=== PATIENT | male | born 1930 | race Caucasian/White ===

== ENCOUNTER 2018-04-24 16:50 | Inpatient (IN) | payer MEDICARE, OTHER ==
[2018-04-24 17:37] VITALS: BMI 29.5
[2018-04-24] MEDS ORDERED: Ondansetron HCl/PF 4 MG/2 ML Vial IVP PRN (20:50)
[2018-04-24] MEDS ORDERED: Diabetic Tussin 200 MG/10 ML UDCUP PO PRN (20:50)
[2018-04-24] MEDS ORDERED: Nitroglycerin 0.4 MG TAB (25 Tab Bottle) SL PRN (20:50)
[2018-04-24] MEDS ORDERED: Bisacodyl 5 MG TAB PO PRN (20:50)
[2018-04-24] MEDS ORDERED: Calcium Carbonate 500 MG ChewTAB PO PRN (20:50)
[2018-04-24] MEDS ORDERED: cloNIDine 0.1 MG TAB PO PRN (20:50)
[2018-04-24] MEDS ORDERED: traMADol HCl 50 MG TAB PO PRN ×2 (20:50→21:14)
[2018-04-24] MEDS ORDERED: Loratadine 10 MG TAB PO PRN (20:50)
[2018-04-24] MEDS ORDERED: Acetaminophen 325 MG TAB PO PRN (20:50)
[2018-04-24] MEDS ORDERED: Mag-Al 1200 mg/1200 mg/30 ML UDCUP PO PRN (20:50)
[2018-04-24] MEDS ORDERED: Benzonatate 100 MG CAP PO PRN (20:50)
[2018-04-24] MEDS ORDERED: hydrALAZINE 20 MG/ML VIAL SLOW IVP PRN (20:50)
[2018-04-24] MEDS ORDERED: Senokot 8.6 MG TAB PO PRN (20:50)
[2018-04-24] MEDS ORDERED: Sodium Chloride 0.9% 1,000 ML IV SCH (21:00)
[2018-04-24] MEDS ORDERED: Meclizine HCl 12.5 MG TAB PO PRN (21:14)
[2018-04-24 21:31] LABS: Eosinophils 1 % (0-10); Hemoglobin 11.5 g/dL (14.0-18.0); Lymphocytes 40 % (21-51); MDiff Complete? YES; Macrocytosis SLIGHT = 6-15 cells (100X) (0-5/hpf); Mean Corpuscular HGB CONC 35.5 g/dL (32.0-36.0); Mean Corpuscular Hemoglobin 37.9 pg (27.0-31.0); Mean Platelet Volume 7.8 fL (7.4-10.4); Metamyelocyte 1 % (0-0); Monocytes 15 % (0-10); Neutrophil 43 % (42-75); PLT Morphology Comment Appears Adequate; Platelet Count 150 thou/uL (130-400); RBC Distribution Width 12.2 % (11.5-14.5); Red Blood Cell (RBC) Count 3.04 mill/uL (4.70-6.10)
[2018-04-24 21:36] LABS: ALT (SGPT) 35 U/L (8-55); AST (SGOT) 32 U/L (5-34); Albumin 3.9 g/dL (3.4-4.8); Alkaline Phosphatase 54 U/L (40-150); Anion Gap 13 mmol/L (10-20); BUN (Urea Nitrogen) 25 mg/dL (8.4-25.7); Bilirubin, Total 0.6 mg/dL (0.2-1.2); Calc. Creatinine Clearance 67 mL/min (70-130); Calcium 9.5 mg/dL (7.8-10.44); Carbon Dioxide 24 mmol/L (23-31); Chloride 105 mmol/L (98-107); Estimated GFR-MDRD 71; Globulin 3.1 g/dL (2.4-3.5); Glucose 109 mg/dL (83-110); Potassium 3.9 mmol/L (3.5-5.1); Sodium 138 mmol/L (136-145)
[2018-04-24] MEDS: Simvastatin 5 MG TAB PO SCH (21:51)
[2018-04-24] MEDS: Finasteride 5 MG TAB PO SCH (21:52)
[2018-04-24] MEDS: cefTRIAXone\\ROCEPHIN 2 GM in Sodium Chloride 0.9% 100 ML IVPB SCH (22:54)
[2018-04-24] MEDS ORDERED: Vancomycin HCl 1.25 GM in Sodium Chloride 0.9% 250 ML 250 ML IVPB SCH (23:59)
--- NOTE | 2018-04-25 00:53 | HP ---
DATE OF SERVICE: 04/24/2018 PRIMARY CARE PHYSICIAN: Dr. Wendy Ordoñez. REASON FOR ADMISSION: Direct admission from primary care physician's office for bilateral lower extremity cellulitis and generalized weakness. HISTORY OF PRESENT ILLNESS: An 88-year-old male who was recently admitted at [facility] in [place]. He was admitted there on 2017 and he was discharged from the hospital on 04/21/2018. At that time, patient's admission diagnoses were altered mental status, generalized weakness, volume depletion, and cellulitis of lower extremity. Patient had all routine blood test as well as chest x-ray, which was normal. CT brain also showed atrophy and chronic ischemic white matter changes. Patient was given clindamycin upon discharge. Patient did not feel any better after treatment in hospital as well as upon discharge. He made a followup appointment with primary care physician today. Patient was continued to complain of weakness, he was reporting to his son that he is feeling more weak since he is hospitalized. He had no energy and no strain. He was not able to walk. He was overall feeling very weak. He also reported that both lower extremities getting more red. He was not having any fever. Patient saw primary care physician today and who spoke with Dr. Driver and subsequently Dr. Driver accepted this patient and patient was admitted to the hospital as a direct admission. PAST MEDICAL HISTORY: Colon polyp, diabetes mellitus, hypertension, nephrolithiasis, osteoarthritis, benign enlargement of prostate, dyslipidemia, history of bradycardia-required pacemaker, chronic kidney disease stage 3, physical deconditioning, senile dementia. PAST SURGICAL HISTORY: Pacemaker placement for bradycardia, tonsillectomy, incisional hernia repair, left lung decortication, pericardial window, orchiectomy for testicular abscess. PAST PSYCHIATRIC HISTORY: Reviewed and negative. FAMILY HISTORY: Positive for stroke and heart attack to his mother. His father had COPD and epilepsy. SOCIAL HISTORY: Patient lives at home with his son. He drinks beer occasionally. He denies any smoking. He denies any other illicit drug abuse. ALLERGIES: No known drug allergy. CURRENT HOME MEDICATIONS: Uroxatral 10 mg p.o. daily, Proscar 5 mg daily, Lasix 40 mg p.o. b.i.d., lidocaine patch daily, Toprol-XL 50 mg p.o. daily, potassium chloride 10 mEq p.o. b.i.d., Zocor 10 mg p.o. at bedtime, tramadol 50 mg q.i.d. p.r.n., Antivert 12.5 mg p.o. b.i.d. p.r.n. Hospital course reviewed, old medical record reviewed. REVIEW OF SYSTEMS: Please see my HPI for pertinent positive and negative. All other review of systems reviewed and negative except as mentioned in the HPI: Constitutional: Weight loss or gain, ability to conduct usual activities. Skin : Rash, itching. Eyes: Double vision, pain. ENT/Mouth: Nose bleeding, neck stiffness, pain, tenderness. Cardiovascular: Palpitations, dyspnea on exertion , orthopnea. Respiratory: Shortness of breath, wheezing, cough, hemoptysis, fever, or night sweats. Gastrointestinal: Poor appetite, abdominal pain, heartburn, nausea, vomiting, constipation, or diarrhea. Genitourinary: Urgency , frequency, dysuria, nocturia. Musculoskeletal: Pain, swelling. Neurologic/ Psychiatric: Anxiety, depression. Allergy/Immunologic: Skin rash, bleeding tendency. PHYSICAL EXAMINATION: VITAL SIGNS: On arrival temperature 98.0, pulse 68, respiratory rate 18, saturation 100% on room air, blood pressure 150/57, weight 206 pounds. GENERAL: Patient is currently alert, awake in no obvious acute distress. HEENT: Normocephalic, atraumatic. Eyes: Pupils round, reactive to light. Extraocular muscle intact. ENT: Oropharynx within normal limits. Moist mucous membranes. No oral lesion , no pharyngeal erythema, no exudate. NECK: Supple, no JVD, no thyromegaly, no carotid bruit, no jugular venous distention. LUNGS: Clear to auscultation without any rhonchi or rales. CARDIAC: S1, S2 appears regular without any significant gross murmur. ABDOMEN: Soft, bowel sounds present, nontender, nondistended. No organomegaly , no mass, no suprapubic tenderness. BACK: Unremarkable, no CVA tenderness. EXTREMITIES: Upper extremity passive movement of all joints are normal. Lower extremity: Patient has bilateral lower extremity edema, erythema, tenderness more on the left side. PSYCHIATRIC: Normal affect. NEUROLOGIC: Nonfocal examination. SIGNIFICANT LABORATORY DATA: Recently done blood test at [facility] completely reviewed. His creatinine 0.87, sodium 138, potassium 4.0, chloride 105, calcium 9.1. AST 18, ALT 17, alkaline phosphatase 62. WBC 6.3, hemoglobin 14.0, platelet 224. Today, his CBC: Hemoglobin 11.5, MCV 107, platelet 150. His BMP and LFT is normal. CRP is less than 0.50. ASSESSMENT AND PLAN: 1. Bilateral lower extremity cellulitis most likely patient has chronic lymphedema and possibly this is chronic venous insufficiency and stasis dermatitis. Underlying cellulitis cannot be entirely excluded. We will continue with empiric antibiotic therapy with Rocephin 2 grams q.24 hours and Pharmacy adjusted vancomycin. We will monitor clinical response and will also do ultrasound of bilateral lower extremity to rule out deep venous thrombosis. 2. Generalized weakness. Patient will need PT, OT, and casework specialist consultation as most likely this patient will need a nursing home home placement upon discharge. 3. Benign enlargement of prostate. Continue Proscar 5 mg p.o. daily. 4. Hypertension. Continue Toprol-XL 50 mg p.o. daily. 5. Dyslipidemia. Continue Zocor 10 mg p.o. at bedtime. 6. Macrocytic anemia. Start folic acid and vitamin B12 therapy. 7. Deep venous thrombosis prophylaxis. Lovenox 40 mg subcutaneous daily. 8. Gastrointestinal prophylaxis, Pepcid 20 mg p.o. b.i.d. 9. Code status: Patient is FULL CODE. Patient's son is surrogate decision maker. Disposition plan based on clinical course. We are expecting patient's stay in hospital more than 2 midnights. Patient will need placement upon discharge. During this admission, we will continue with antibiotic therapy and monitor clinical response. RAYMONDD
[2018-04-25] MEDS: Folic Acid 1 MG TAB PO SCH (08:36)
[2018-04-25] MEDS: Alfuzosin 10 MG TABDR...ER PO SCH (08:36)
[2018-04-25] MEDS: Cyanocobalamin (Vitamin B-12) 1,000 MCG TAB PO SCH (08:37)
[2018-04-25] MEDS: Enoxaparin Sodium 40 MG/0.4 ML SYRINGE SC SCH (08:37)
[2018-04-25] MEDS: Furosemide 20 MG TAB PO SCH ×2 (08:37→14:20)
[2018-04-25] MEDS: Potassium Chloride 10 MEQ TAB PO SCH ×2 (08:37→20:17)
--- NOTE | 2018-04-25 09:07 | ULT ---
BILATERAL LOWER EXTREMITY VENOUS DOPPLER WITH SPECTRAL ANALYSIS AND COLOR FLOW EVALUATION: Date: 04-25-18 History: Bilateral lower extremity edema. FINDINGS: Grayscale, color flow, doppler evaluation, and spectral analysis of the bilateral lower extremity valeria ous structures is performed with 2D imaging. The bilateral common femoral, superficial femoral, popli teal, posterior tibial, and proximal greater saphenous and profunda femoral veins are imaged. There is a normal lumen compressibility, flow, and augmentation in the visualized deep venous structu res of the bilateral lower extremities. IMPRESSION: No evidence of DVT involving the visualized deep venous structures bilateral lower extremities. POS: NATHAN
[2018-04-25] MEDS: Famotidine 20 MG TAB PO SCH ×2 (10:28→20:17)
[2018-04-25] MEDS: Vancomycin HCl 1 GM in Premix Bag 1 BAG IVPB SCH ×2 (11:21→23:09)
[2018-04-25] MEDS: Lidocaine 5% Patch TD SCH (11:22)
--- NOTE | 2018-04-25 14:37 | PDOC.PN ---
- Subjective Encounter Start Date: 04/25/18 Encounter Start Time: 14:35 Subjective: feels better. care discussed w son at bedside -: son reports that his legs were more red & warm at home -: reports worsening weakness.reports severe infections in the past - Objective Resuscitation Status: Resuscitation Status FULL:Full Resuscitation MAR Reviewed: Yes Vital Signs & Weight: Vital Signs (12 hours) Temp Pulse Resp BP BP Pulse Ox 04/25/18 12:18 97.6 F 60 18 130/64 96 04/25/18 08:37 97.7 F 60 16 99 04/25/18 07:07 97.7 F 60 16 121/65 99 04/25/18 04:28 97.8 F 67 19 110/55 L 100 Weight Admit Weight 206 lb Weight 206 lb I&O: 04/24/18 04/25/18 04/26/18 06:59 06:59 06:59 Intake Total 665 Output Total 450 Balance 215 Result Diagrams: 04/24/18 21:06 04/24/18 21:06 Additional Labs: Microbiology 04/24/18 22:50 Venous blood - Left Hand Blood Culture - Preliminary Specimen has been received and culture in progress. No Growth to date. Phys Exam - Physical Examination Constitutional: NAD HEENT: PERRLA, moist MMs, sclera anicteric, oral pharynx no lesions Neck: no nodes, no JVD, supple, full ROM Respiratory: no wheezing, no rales, no rhonchi, clear to auscultation bilateral Cardiovascular: RRR, no significant murmur, no rub Gastrointestinal: soft, non-tender, no distention, positive bowel sounds Musculoskeletal: pulses present, edema present Neurological: non-focal, normal sensation, moves all 4 limbs Psychiatric: normal affect, A&O x 3 Skin: no rash Dx/Plan (1) Cellulitis, leg Code(s): L03.119 - CELLULITIS OF UNSPECIFIED PART OF LIMB Status: Acute Comment: Bilateral.Suspect some element of chronic venous insufficiency (2) Anemia Code(s): D64.9 - ANEMIA, UNSPECIFIED Status: Chronic Qualifiers: Anemia type: unspecified type Qualified Code(s): D64.9 - Anemia, unspecified (3) General weakness Code(s): R53.1 - WEAKNESS Status: Chronic (4) BPH (benign prostatic hyperplasia) Code(s): N40.0 - BENIGN PROSTATIC HYPERPLASIA WITHOUT LOWER URINRY TRACT SYMP Status: Chronic (5) HLD (hyperlipidemia) Code(s): E78.5 - HYPERLIPIDEMIA, UNSPECIFIED Status: Chronic - Plan plan discussed w/ family, continue antibiotics, PT/OT, out of bed/ambulate, DVT proph w/SCDs Empiric ABx,follow Cx results -: OT,PT.Placement -: home meds as below -: HD stable -: am labs * . Review of Systems - Review of Systems Constitutional: weakness ENT: negative: Ear Pain, Ear Discharge, Nose Pain, Nose Discharge, Nose Congestion, Mouth Pain, Mouth Swelling, Throat Pain, Throat Swelling, Other Respiratory: negative: Cough, Dry, Shortness of Breath, Hemoptysis, SOB with Excertion, Pleuritic Pain, Sputum, Wheezing Cardiovascular: negative: chest pain, palpitations, orthopnea, paroxysmal nocturnal dyspnea, edema, light headedness, other Gastrointestinal: negative: Nausea, Vomiting, Abdominal Pain, Diarrhea, Constipation, Melena, Hematochezia, Other Genitourinary: negative: Dysuria, Frequency, Incontinence, Hematuria, Retention , Other Musculoskeletal: Leg Pain. negative: Neck Pain, Shoulder Pain, Arm Pain, Back Pain, Hand Pain, Foot Pain, Other Skin: negative: Rash, Lesions, Yk, Bruising, Other Neurological: negative: Weakness, Numbness, Incoordination, Change in Speech, Confusion, Seizures, Other - Medications/Allergies Allergies/Adverse Reactions: Allergies Allergy/AdvReac Type Severity Reaction Status Date / Time No Known Drug Allergies Allergy Verified 04/24/18 17:38 Medications: Current Medications Acetaminophen (Tylenol) 650 mg PO Q4H PRN PRN Reason: Headache/Fever or Mild Pain Al Hydroxide/Mg Hydroxide (Maalox) 15 ml PO Q4H PRN PRN Reason: Heartburn or Indigestion Alfuzosin HCl (Uroxatral) 10 mg PO [facility] Last Admin: 04/25/18 08:36 Dose: 10 mg Benzonatate (Tessalon) 100 mg PO Q4H PRN PRN Reason: Cough Bisacodyl (Dulcolax) 10 mg PO DAILYPRN PRN PRN Reason: Constipation Calcium Carbonate (Tums) 1,000 mg PO Q4H PRN PRN Reason: Heartburn or Indigestion Clonidine (Catapres) 0.1 mg PO Q4H PRN PRN Reason: Systolic BP > 160 Cyanocobalamin (Vitamin B-12) 1,000 mcg PO DAILY [facility] Last Admin: 04/25/18 08:37 Dose: 1,000 mcg Enoxaparin Sodium (Lovenox) 40 mg SC 0900 [facility] Last Admin: 04/25/18 08:37 Dose: 40 mg Famotidine (Pepcid) 20 mg PO BID [facility] Last Admin: 04/25/18 10:28 Dose: 20 mg Finasteride (Proscar) 5 mg PO QPM [facility] Last Admin: 04/24/18 21:52 Dose: 5 mg Folic Acid (Folvite) 1 mg PO DAILY [facility] Last Admin: 04/25/18 08:36 Dose: 1 mg Furosemide (Lasix) 40 mg PO 0900,1400 [facility] Last Admin: 04/25/18 14:20 Dose: 40 mg Guaifenesin (Robitussin Sf) 200 mg PO Q4H PRN PRN Reason: Cough Hydralazine HCl (Apresoline) 10 mg SLOW IVP Q4H PRN PRN Reason: Systolic BP > 170 Ceftriaxone Sodium 2 gm/ (Sodium Chloride) 100 mls @ 200 mls/hr IVPB Q24HR [facility] Last Admin: 04/24/18 22:54 Dose: 100 mls Vancomycin HCl 1 gm/ Device 200 mls @ 200 mls/hr IVPB 1200,2359 [facility] Last Admin: 04/25/18 11:21 Dose: 200 mls Lidocaine (Lidoderm 5% Patch) 2 patch TD DAILY [facility] Last Admin: 04/25/18 11:22 Dose: 2 patch Loratadine (Claritin) 10 mg PO DAILYPRN PRN PRN Reason: Sinus Symptoms Meclizine HCl (Antivert) 12.5 mg PO BIDPRN PRN PRN Reason: Dizziness Metoprolol Succinate (Toprol Xl) 50 mg PO DAILY [facility] Last Admin: 04/25/18 08:37 Dose: 50 mg Miscellaneous Medication (Lidocaine Patch Removal) 1 each TOP 2100 [facility] Miscellaneous Medication (Pharmacy To Dose) 0 each IVPB PRN PRN PRN Reason: [facility] Pharmacy to Dose Nitroglycerin (Nitrostat) 0.4 mg SL Q5MIN PRN PRN Reason: Chest Pain Ondansetron HCl (Zofran) 4 mg IVP Q6H PRN PRN Reason: Nausea/Vomiting Potassium Chloride (Klor-Con 10) 10 meq PO BID [facility] Last Admin: 04/25/18 08:37 Dose: 10 meq Senna (Senokot) 2 tab PO HSPRN PRN PRN Reason: Constipation Simvastatin (Zocor) 10 mg PO QPM [facility] Last Admin: 04/24/18 21:51 Dose: 10 mg Sodium Chloride (Flush - Normal Saline) 10 ml IVF Q12HR [facility] Last Admin: 04/25/18 08:37 Dose: 10 ml Sodium Chloride (Flush - Normal Saline) 10 ml IVF PRN PRN PRN Reason: Saline Flush Tramadol HCl (Ultram) 50 mg PO Q4H PRN PRN Reason: Moderate Pain (4-6)
[2018-04-25] MEDS: Simvastatin 5 MG TAB PO SCH (20:17)
[2018-04-25] MEDS: Finasteride 5 MG TAB PO SCH (20:17)
[2018-04-25] MEDS: Lidocaine Patch Removal 1 EACH TOP SCH (21:01)
[2018-04-25] MEDS: cefTRIAXone\\ROCEPHIN 2 GM in Sodium Chloride 0.9% 100 ML IVPB SCH (22:20)
[2018-04-26 06:02] LABS: Hemoglobin 11.2 g/dL (14.0-18.0)
[2018-04-26] MEDS: Folic Acid 1 MG TAB PO SCH (09:02)
[2018-04-26] MEDS: Alfuzosin 10 MG TABDR...ER PO SCH (09:02)
[2018-04-26] MEDS: Famotidine 20 MG TAB PO SCH ×2 (09:02→20:08)
[2018-04-26] MEDS: Cyanocobalamin (Vitamin B-12) 1,000 MCG TAB PO SCH (09:03)
[2018-04-26] MEDS: Furosemide 20 MG TAB PO SCH ×2 (09:03→14:48)
[2018-04-26] MEDS: Potassium Chloride 10 MEQ TAB PO SCH ×2 (09:03→20:07)
[2018-04-26] MEDS: Lidocaine 5% Patch TD SCH (09:04)
[2018-04-26] MEDS: Enoxaparin Sodium 40 MG/0.4 ML SYRINGE SC SCH (09:04)
[2018-04-26 12:12] LABS: Vancomycin, Trough 17.3 ug/mL
[2018-04-26] MEDS: Vancomycin HCl 1 GM in Premix Bag 1 BAG IVPB SCH ×2 (12:39→23:20)
--- NOTE | 2018-04-26 15:10 | PDOC.PN ---
- Subjective Encounter Start Date: 04/26/18 Encounter Start Time: 15:06 Subjective: feels much better. son reports that his legs ar ebetter looking w swelling -: no F/C - Objective Resuscitation Status: Resuscitation Status FULL:Full Resuscitation MAR Reviewed: Yes Vital Signs & Weight: Vital Signs (12 hours) Temp Pulse Resp BP BP Pulse Ox 04/26/18 11:40 98.1 F 61 14 107/59 L 100 04/26/18 08:58 98.1 F 61 14 98 04/26/18 08:00 98.3 F 64 18 148/66 H 98 04/26/18 04:00 97.7 F 61 14 146/68 H 99 Weight Admit Weight 206 lb Weight 206 lb I&O: 04/25/18 04/26/18 04/27/18 06:59 06:59 06:59 Intake Total 665 1490 1157 Output Total 450 1025 Balance 470 724 2220 Result Diagrams: 04/26/18 05:53 04/24/18 21:06 Additional Labs: Microbiology 04/24/18 22:50 Venous blood - Right Arm Blood Culture - Preliminary Specimen has been received and culture in progress. No Growth to date. 04/24/18 22:50 Venous blood - Left Hand Blood Culture - Preliminary Specimen has been received and culture in progress. No Growth to date. 04/24/18 22:50 Venous blood - Left Hand Blood Culture - Preliminary NO GROWTH AT 48 HOURS Phys Exam - Physical Examination Constitutional: NAD HEENT: PERRLA, moist MMs, sclera anicteric, oral pharynx no lesions Neck: no nodes, no JVD, supple, full ROM Respiratory: no wheezing, no rales, no rhonchi, clear to auscultation bilateral Cardiovascular: RRR, no significant murmur, no rub Gastrointestinal: soft, non-tender, no distention, positive bowel sounds Musculoskeletal: no edema, pulses present Neurological: non-focal, normal sensation, moves all 4 limbs Psychiatric: normal affect, A&O x 3 Dx/Plan (1) Cellulitis, leg Code(s): L03.119 - CELLULITIS OF UNSPECIFIED PART OF LIMB Status: Acute Comment: Bilateral.Suspect some element of chronic venous insufficiency (2) Anemia Code(s): D64.9 - ANEMIA, UNSPECIFIED Status: Chronic Qualifiers: Anemia type: unspecified type Qualified Code(s): D64.9 - Anemia, unspecified (3) General weakness Code(s): R53.1 - WEAKNESS Status: Chronic (4) BPH (benign prostatic hyperplasia) Code(s): N40.0 - BENIGN PROSTATIC HYPERPLASIA WITHOUT LOWER URINRY TRACT SYMP Status: Chronic (5) HLD (hyperlipidemia) Code(s): E78.5 - HYPERLIPIDEMIA, UNSPECIFIED Status: Chronic - Plan continue antibiotics, DVT proph w/SCDs cont iv abx for now. blood cx negative for now. -: Rehab tomorrow if stable. -: home meds as below * . Review of Systems - Review of Systems Constitutional: negative: fever, chills, sweats, weakness, malaise, other ENT: negative: Ear Pain, Ear Discharge, Nose Pain, Nose Discharge, Nose Congestion, Mouth Pain, Mouth Swelling, Throat Pain, Throat Swelling, Other Respiratory: negative: Cough, Dry, Shortness of Breath, Hemoptysis, SOB with Excertion, Pleuritic Pain, Sputum, Wheezing Cardiovascular: edema. negative: chest pain, palpitations, orthopnea, paroxysmal nocturnal dyspnea, light headedness, other Genitourinary: negative: Dysuria, Frequency, Incontinence, Hematuria, Retention , Other Musculoskeletal: Other. negative: Neck Pain, Shoulder Pain, Arm Pain, Back Pain , Hand Pain, Leg Pain, Foot Pain Skin: negative: Rash, Lesions, [place], Bruising, Other Neurological: negative: Weakness, Numbness, Incoordination, Change in Speech, Confusion, Seizures, Other - Medications/Allergies Allergies/Adverse Reactions: Allergies Allergy/AdvReac Type Severity Reaction Status Date / Time No Known Drug Allergies Allergy Verified 04/24/18 17:38 Medications: Current Medications Acetaminophen (Tylenol) 650 mg PO Q4H PRN PRN Reason: Headache/Fever or Mild Pain Al Hydroxide/Mg Hydroxide (Maalox) 15 ml PO Q4H PRN PRN Reason: Heartburn or Indigestion Alfuzosin HCl (Uroxatral) 10 mg PO [facility] Last Admin: 04/26/18 09:02 Dose: 10 mg Benzonatate (Tessalon) 100 mg PO Q4H PRN PRN Reason: Cough Bisacodyl (Dulcolax) 10 mg PO DAILYPRN PRN PRN Reason: Constipation Calcium Carbonate (Tums) 1,000 mg PO Q4H PRN PRN Reason: Heartburn or Indigestion Clonidine (Catapres) 0.1 mg PO Q4H PRN PRN Reason: Systolic BP > 160 Cyanocobalamin (Vitamin B-12) 1,000 mcg PO DAILY [facility] Last Admin: 04/26/18 09:03 Dose: 1,000 mcg Enoxaparin Sodium (Lovenox) 40 mg SC 0900 [facility] Last Admin: 04/26/18 09:04 Dose: 40 mg Famotidine (Pepcid) 20 mg PO BID [facility] Last Admin: 04/26/18 09:02 Dose: 20 mg Finasteride (Proscar) 5 mg PO QPM [facility] Last Admin: 04/25/18 20:17 Dose: 5 mg Folic Acid (Folvite) 1 mg PO DAILY [facility] Last Admin: 04/26/18 09:02 Dose: 1 mg Furosemide (Lasix) 40 mg PO 0900,1400 [facility] Last Admin: 04/26/18 14:48 Dose: 40 mg Guaifenesin (Robitussin Sf) 200 mg PO Q4H PRN PRN Reason: Cough Hydralazine HCl (Apresoline) 10 mg SLOW IVP Q4H PRN PRN Reason: Systolic BP > 170 Ceftriaxone Sodium 2 gm/ (Sodium Chloride) 100 mls @ 200 mls/hr IVPB Q24HR [facility] Last Admin: 04/25/18 22:20 Dose: 100 mls Vancomycin HCl 1 gm/ Device 200 mls @ 200 mls/hr IVPB 1200,2359 [facility] Last Admin: 04/26/18 12:39 Dose: 200 mls Lidocaine (Lidoderm 5% Patch) 2 patch TD DAILY [facility] Last Admin: 04/26/18 09:04 Dose: 2 patch Loratadine (Claritin) 10 mg PO DAILYPRN PRN PRN Reason: Sinus Symptoms Meclizine HCl (Antivert) 12.5 mg PO BIDPRN PRN PRN Reason: Dizziness Metoprolol Succinate (Toprol Xl) 50 mg PO DAILY [facility] Last Admin: 04/26/18 09:03 Dose: 50 mg Miscellaneous Medication (Lidocaine Patch Removal) 1 each TOP 2100 [facility] Last Admin: 04/25/18 21:01 Dose: 1 each Miscellaneous Medication (Pharmacy To Dose) 0 each IVPB PRN PRN PRN Reason: [facility] Pharmacy to Dose Nitroglycerin (Nitrostat) 0.4 mg SL Q5MIN PRN PRN Reason: Chest Pain Ondansetron HCl (Zofran) 4 mg IVP Q6H PRN PRN Reason: Nausea/Vomiting Potassium Chloride (Klor-Con 10) 10 meq PO BID [facility] Last Admin: 04/26/18 09:03 Dose: 10 meq Senna (Senokot) 2 tab PO HSPRN PRN PRN Reason: Constipation Simvastatin (Zocor) 10 mg PO QPM [facility] Last Admin: 04/25/18 20:17 Dose: 10 mg Sodium Chloride (Flush - Normal Saline) 10 ml IVF Q12HR [facility] Last Admin: 04/26/18 09:15 Dose: 10 ml Sodium Chloride (Flush - Normal Saline) 10 ml IVF PRN PRN PRN Reason: Saline Flush Tramadol HCl (Ultram) 50 mg PO Q4H PRN PRN Reason: Moderate Pain (4-6)
[2018-04-26] MEDS: Finasteride 5 MG TAB PO SCH (20:07)
[2018-04-26] MEDS: Simvastatin 5 MG TAB PO SCH (20:07)
[2018-04-26] MEDS: Lidocaine Patch Removal 1 EACH TOP SCH (21:20)
[2018-04-26] MEDS: cefTRIAXone\\ROCEPHIN 2 GM in Sodium Chloride 0.9% 100 ML IVPB SCH (22:37)
[2018-04-27] MEDS: Lidocaine 5% Patch TD SCH (08:31)
[2018-04-27] MEDS: Folic Acid 1 MG TAB PO SCH (08:32)
[2018-04-27] MEDS: Potassium Chloride 10 MEQ TAB PO SCH (08:32)
[2018-04-27] MEDS: Furosemide 20 MG TAB PO SCH ×2 (08:32→12:25)
[2018-04-27] MEDS: Alfuzosin 10 MG TABDR...ER PO SCH (08:32)
[2018-04-27] MEDS: Cyanocobalamin (Vitamin B-12) 1,000 MCG TAB PO SCH (08:32)
[2018-04-27] MEDS: Enoxaparin Sodium 40 MG/0.4 ML SYRINGE SC SCH (08:33)
[2018-04-27] MEDS: Famotidine 20 MG TAB PO SCH (08:33)
[2018-04-27] MEDS ORDERED: Saccharomyces boulardii 250 MG CAP PO SCH (11:30)
[2018-04-27 11:33] VITALS: BP 144/65; TEMP 97.9
[2018-04-27] MEDS: Vancomycin HCl 1 GM in Premix Bag 1 BAG IVPB SCH (12:25)
--- NOTE | 2018-04-27 23:17 | DIS ---
DATE OF ADMISSION: 04/25/2018 DATE OF DISCHARGE: 04/27/2018 PRIMARY CARE PHYSICIAN: Wendy Ordoñez M.D. DISCHARGE DISPOSITION: [facility]. DISCHARGE DIAGNOSES: 1. Bilateral lower extremity cellulitis. 2. Chronic venous insufficiency of the legs. 3. Chronic anemia. 4. Generalized weakness. 5. Benign prostatic hypertrophy. 6. Dyslipidemia. DISCHARGE MEDICATIONS: New medications: Augmentin 875 mg p.o. b.i.d. for 7 more days and resume dakota e medications as per the [facility]. Please see HPI for further details. PROCEDURES DONE IN THE HOSPITAL: Lower extremity ultrasound, which is negative for any DVT bilateral ly. HISTORY OF PRESENTING ILLNESS: Mr. Roldan is an 88-year-old male with past medical history of pacemake r placement for bradycardia, hypertension, dyslipidemia, chronic kidney disease and dementia, who pre sented to the hospital as a direct admit from primary care physician's office for bilateral lower ext remity cellulitis and generalized weakness. He was reportedly admitted to [facility] from 04/20/2018 to 04/21/2018 where he was seen for altered mental status, weakness, volume de pletion and cellulitis of lower extremities. He was discharged on clindamycin, but did not feel bett er and made an appointment with primary care physician. He was found to have more weakness and no en ergy or strength. He was also reporting that his lower extremities are getting more red. For this r jennie, he was sent over as a direct admit by Dr. Wendy Ordoñez. Please see history and physical for further details. HOSPITAL COURSE: The patient was admitted and started on empiric antibiotics IV and cultures were ob tained. Blood cultures are negative until date. The patient had his son and [id number] in the room most of the time. Care was discussed with them and they both reported that his legs have looked much better with less swelling and less erythema after the IV antibiotics. I am not sure what they look like before, but they have significantly improved clinically. I, however, also suspect element of chronic venous insufficiency for him as well. He also follows up with Cardiology and report that Dr. Moore has recently increased his Lasix for worsening lower extremity swelling. By the time of discharge, the patient's clinical symptoms have much improved. He will be changed to oral antibiotics. Rehab was arranged for him as per their request and he will be discharged to [facility] today. He was seen and examined prior to discharge and reports feeling very well. He denies any new complai nts. PHYSICAL EXAMINATION: VITAL SIGNS: This morning, temperature 97.9, pulse of 64, respirations 18, saturating 98% on room ai r, blood pressure 144/65. GENERAL: No acute distress. Awake, alert, and oriented x3. CHEST: Clear to auscultation bilaterally. CARDIOVASCULAR: Rate and rhythm is regular. EXTREMITIES: Lower extremity erythema and warmth are much improved. There is no edema. LABORATORY DATA: Blood culture negative x2 until date. Hemoglobin 11.2 with hematocrit of 32.1. Se rum chemistries unremarkable. CRP normal. Discharge plan was discussed with the patient who verbalized understanding. Discharge plan was also discussed with the son who is present in the room yesterday. They verbalized understanding as well. Total time spent 32 minutes.
== END 2018-04-27 15:23 | DRG 603 ==
LOC: SURG A 16:51
PROVIDERS: ADMIT Internal Medicine; ATTEND Internal Medicine
DX: L03.115 Cellulitis of right lower limb (principal); L03.116 Cellulitis of left lower limb; I87.2 Venous insufficiency (chronic) (peripheral); D64.9 Anemia, unspecified; N40.0 Benign prostatic hyperplasia without lower urinary tract symptoms; E78.5 Hyperlipidemia, unspecified; M19.90 Unspecified osteoarthritis, unspecified site; Z95.0 Presence of cardiac pacemaker; I12.9 Hypertensive chronic kidney disease with stage 1 through stage 4 chronic kidney disease, or unspecified chronic kidney disease; E11.22 Type 2 diabetes mellitus with diabetic chronic kidney disease; N18.3 Chronic kidney disease, stage 3 (moderate); F03.90 Unspecified dementia, unspecified severity, without behavioral disturbance, psychotic disturbance, mood disturbance, and anxiety; Z87.442 Personal history of urinary calculi; R53.1 Weakness
CPT/HCPCS: 36415; 80053; 80202; 85014; 85018; 85025; 86140; 87040; 87324; 87449; 93970; A4216; G8978-GP-CL; G8979-GP-CK; G8987-GO-CK; G8988-GO-CI; J0696; J1650; J3370; J7050

== ENCOUNTER 2018-10-12 06:34 | Inpatient (IN) | payer MEDICARE, OTHER ==
[2018-10-12] MEDS ORDERED: Morphine 4 MG/ML VIAL ONE (07:57)
[2018-10-12 08:13] LABS: INR-International Normal Ratio 1.1; PTT 25.6 SEC (22.9-36.1); Prothrombin Time 14.4 SEC (12.0-14.7)
[2018-10-12 08:26] LABS: Hemoglobin 10.1 g/dL (14.0-18.0); Mean Corpuscular HGB CONC 32.1 g/dL (32.0-36.0); Mean Corpuscular Hemoglobin 36.4 pg (27.0-31.0); Mean Platelet Volume 8.4 fL (7.4-10.4); Platelet Count 233 thou/uL (130-400); Red Blood Cell (RBC) Count 2.77 mill/uL (4.70-6.10); White Blood Cell (WBC) Count 18.1 thou/uL (4.8-10.8)
[2018-10-12 08:30] LABS: ALT (SGPT) 27 U/L (8-55); AST (SGOT) 39 U/L (5-34); Albumin 3.8 g/dL (3.4-4.8); Alkaline Phosphatase 54 U/L (40-150); Anion Gap 18 mmol/L (10-20); BUN (Urea Nitrogen) 22 mg/dL (8.4-25.7); Bilirubin, Total 1.6 mg/dL (0.2-1.2); CK (CPK) 374 U/L (30-200); Calc. Creatinine Clearance 0 mL/min (70-130); Calcium 10.2 mg/dL (7.8-10.44); Carbon Dioxide 19 mmol/L (23-31); Chloride 105 mmol/L (98-107); Estimated GFR-MDRD 54; Globulin 3.7 g/dL (2.4-3.5); Glucose 161 mg/dL (83-110); Potassium 4.5 mmol/L (3.5-5.1); Protein, Total 7.5 g/dL (5.8-8.1); Sodium 137 mmol/L (136-145)
--- NOTE | 2018-10-12 08:36 | ULT ---
ULTRASOUND WITH DOPPLER DUPLEX VENOUS LOWER EXTREMITY LEFT: CPT: 81002 ICD-10-PCS: B54D INDICATION: Left lower extremity edema. TECHNIQUE: Color flow Doppler, spectral waveform analysis of pulsed Doppler, and mcnally-scale imaging with yohan alexis and augmentation, were used to evaluate the left common femoral, femoral, popliteal, posterior t ibial, and superficial femoral, veins; and the proximal portions of the profunda femoral and greater saphenous, veins. FINDINGS: There is appropriate compressibility and flow within the imaged deep vein system of the left lower ex tremity. IMPRESSION: No deep venous thrombosis. POS: TPC
[2018-10-12 08:56] LABS: Bilirubin Negative (Negative); Blood, Urine Large (Negative); Clarity TURBID (Clear); Glucose, Urine (Dipstick) Negative (Negative); Leukocyte Large (Negative); Nitrite Positive (Negative); Protein, Urine (Dipstick) 100 mg/dL (Neg-Trace); Specific Gravity, Urine 1.016 (1.002-1.036); pH, Urine 8.5 (5.0-9.0)
[2018-10-12 08:59] LABS: Bacteria/HPF 3+ HPF (None Seen); RBC/HPF GREATER THAN 50-TNTC HPF (0-3); Squamous Epithelial 0-3 HPF (0-3)
[2018-10-12 09:03] LABS: Pathc Cast-AUWi Flag 43.12 (0-2.49)
[2018-10-12 09:15] LABS: Hyaline Casts/LPF NONE SEEN LPF (0-3 Hyaline)
[2018-10-12 09:22] LABS: MDiff Complete? YES
[2018-10-12 09:23] LABS: Band 27 % (5-11); Lymphocytes 18 % (21-51); Macrocytosis SLIGHT = 6-15 cells (100X) (0-5/hpf); Metamyelocyte 1 % (0-0); Monocytes 7 % (0-10); Neutrophil 47 % (42-75); Platelet Morphology Comment Appears Adequate; Polychromasia SLIGHT = 2-3 cells (100X) (0-2/hpf)
[2018-10-12] MEDS ORDERED: Haloperidol Lactate 5 MG/ML VIAL ONE (09:31)
[2018-10-12] MEDS ORDERED: Morphine 2 MG/ML SYRINGE ONE (09:31)
[2018-10-12] MEDS ORDERED: Piperacillin/Tazobactam 3.375 GM VIAL ONE (10:38)
[2018-10-12] MEDS ORDERED: Acetaminophen 500 MG TAB ONE (11:00)
[2018-10-12 12:08] LABS: Lactic Acid 2.3 mmol/L (0.5-2.2)
--- NOTE | 2018-10-12 12:33 | HP ---
PRIMARY CARE PHYSICIAN: Dr. Dereje Steele. CHIEF COMPLAINT: The patient is becoming more and more confused. HISTORY OF PRESENT ILLNESS: Mr. Roldan is a pleasant 88-year-old gentleman, who has a history of hypertension, benign prostatic hyperplasia, and chronic kidney disease stage 3. He was in his usual state of health until about a couple of weeks ago when he had a left total knee replacement. This was done last Tuesday at the [facility]. His son, who is acting as the historian says that he was fine on Tuesday as well as Tuesday. Then, on , while he was still in the hospital, he started to get confused. They put him in a new room and he continued to get confused and on Tuesday, he was "zoned out" basically kind of just staring blankly and not really talking much. By Tuesday and Tuesday, he was all out, confused according to the son and had to be restrained. Then on Tuesday, he just basically cleared up. Suddenly, he was talking normally where as before he was talking "mush mouth" but now he seemed back to his normal self. For the next few days, he went on normally and was participating with physical therapy and then was transferred to [facility]; however, after being in the [place] for a couple of days, he began to become confused again and this morning, he pulled his Rangel out and was confused and had some hematuria. For this reason, they brought him to the emergency room for evaluation. In the ER, he was found to have a urinary tract infection. His white blood cell count was elevated as well as his lactic acid level and it is presumed that he likely has metabolic encephalopathy and sepsis due to the urinary tract infection. A chest x-ray was done as well as a CT scan of the brain, which were negative and he is being admitted for further evaluation. According to the patient's son, he has had infections in the past, pneumonia and cellulitis in which case the patient got confused at that time and usually it resolves. Prior to him having the knee replacement, he was living at home independently, able to drive and go to the grocery store and to perform all his activities of daily living. He was walking with a walker however, but otherwise he was independent. REVIEW OF SYSTEMS: Unable to get a review of systems due to the patient is confused. PAST MEDICAL HISTORY: Significant for hypertension, kidney stones, osteoarthritis, BPH, hyperlipidemia, chronic kidney disease, and dementia. PAST SURGICAL HISTORY: He has had a pacemaker, tonsillectomy. He has a very large ventral hernia, but it has not been repaired. He has had a pericardial window and the son says this was as a result of him having severe sepsis and caused what sounds like swelling all over his body. He had a testicular abscess removed. ALLERGIES: NO KNOWN DRUG ALLERGIES. FAMILY HISTORY: Significant for COPD and lung cancer. SOCIAL HISTORY: He is , however, his former has . He has one son, Theodore Roldan, and he is the surrogate decision maker. He wants him to be a full code. He used to smoke a pipe or cigar for years, but he quit about 10 years ago, and he occasionally drinks beer. MEDICATIONS: These are taken from this son's list and include; 1. Vitamin B12 1000 mcg daily. 2. Folic acid 1 mg daily. 3. Furosemide 40 mg twice a day. 4. Metoprolol 100 mg daily. 5. Potassium chloride 10 mEq daily. 6. Flomax 0.4 mg daily. 7. Finasteride 5 mg at bedtime. 8. Simvastatin 10 mg at bedtime. 9. Spironolactone 25 mg daily. 10. Vitamin D 50,000 international units weekly. 11. Tramadol 50 mg q.6 hours as needed. PHYSICAL EXAMINATION: GENERAL: He is alert to person. He is well developed and well nourished. He appears to be in no acute distress. VITAL SIGNS: Blood pressure is 166/76, heart rate 84, respiratory rate of 20, and temperature is 97.6. HEENT: His pupils are reactive. His tympanic membranes are normal. There is just a mild amount of redness, but there is no fluid behind the drum. He did have quite a bit of wax in the external canal. Throat, his mucous membranes are bit dry, but there are no oral lesions. NECK: There is no jugular venous distention. No bruits. LUNGS: Clear to auscultation. There is no wheezing, no rales, no rhonchi. CARDIOVASCULAR: He had a normal S1 and S2. No S3 or S4. He did have a grade 3/6 systolic murmur heard throughout the entire precordium. ABDOMEN: Obese. He had a large ventral hernia, which is easily reducible. There was no evidence of any organomegaly. Positive bowel sounds. There is no rebound or guarding. EXTREMITIES: He has no edema; however, the left lower extremity did appear to be slightly larger or sher than the right and the left knee has the incision from the knee replacement, which was dressed, but there is no obvious drainage from the area. NEUROLOGIC: He is moving all extremities and is grossly nonfocal. SKIN AND INTEGUMENT: He has some hyperpigmentation with chronic venous stasis changes. He has some mycotic nails, but otherwise no other significant lesions. LABORATORY DATA: White blood cell count is 18.1, hemoglobin 10.1, hematocrit is 31.5, and platelet count is 233. INR is 1.1. Sodium 137, potassium 4.5, chloride is 105, CO2 is 19, BUN of 22, creatinine 1.26, glucose is 161. His lactic acid was 3.1, total bilirubin is 1.6, and CK was 374. Urinalysis showed large blood, positive nitrites, leukocyte esterase positive, too numerous to count WBCs, and 3+ bacteria. DIAGNOSTIC DATA: His chest x-ray by my reading essentially is normal. Heart size was normal. There is no evidence of any infiltrates or effusions. ASSESSMENT: This is a pleasant 88-year-old gentleman, who presented to the emergency room after having progressive confusion in the longterm and at home. He has had findings consistent with a urinary tract infection and I suspect this is the cause of his symptoms. He also could have a toxic metabolic encephalopathy, but this is less likely as it appears in conversation with the son that they had withdrawn a lot of excessive medications that he had been on with regard to pain medication. He also has some urinary retention, which has likely been exacerbated by his more recent surgery. 1. Urinary tract infection with sepsis. He will be placed on broad-spectrum IV antibiotics. Urine and blood cultures will be obtained and we will tailor antibiotics based on culture results. 2. Urinary retention. We will continue to maintain the Rangel catheter. We can consider a voiding trial when he is close to discharge and if he fails the voiding trial, he already had Urology followup set up from his previous admission and therefore, the Rangel could be replaced and he could follow up as an outpatient. 3. Chronic kidney disease. We will continue to monitor his renal function during his hospital stay. 4. Metabolic encephalopathy. Hopefully, this will clear with the treatment of the infection. Job ID: [id number]
[2018-10-12] MEDS ORDERED: VANCOMYCIN IVPB PRN (12:52)
[2018-10-12] MEDS: Piperacillin/Tazobactam 3.375 GM in Sodium Chloride 0.9% 100 ML IVPB SCH ×2 (17:00→22:48)
[2018-10-12] MEDS: Simvastatin 5 MG TAB PO SCH (20:56)
[2018-10-12] MEDS: Finasteride 5 MG TAB PO SCH (20:56)
[2018-10-12] MEDS: Famotidine 20 MG TAB PO SCH (20:56)
[2018-10-12] MEDS ORDERED: Vancomycin HCl 1 GM in Premix Bag 1 BAG IVPB SCH (21:00)
[2018-10-12] MEDS: Acetaminophen 325 MG TAB PO PRN (23:27)
[2018-10-13] MEDS ORDERED: Ibuprofen 200 MG TAB PO SCH (01:45)
[2018-10-13] MEDS: Piperacillin/Tazobactam 3.375 GM in Sodium Chloride 0.9% 100 ML IVPB SCH ×4 (04:49→23:30)
[2018-10-13] MEDS: Folic Acid 1 MG TAB PO SCH (07:50)
[2018-10-13] MEDS: Tamsulosin HCl 0.4 MG CAP PO SCH (08:08)
[2018-10-13] MEDS: Spironolactone 25 MG TAB PO SCH (08:09)
[2018-10-13] MEDS: Famotidine 20 MG TAB PO SCH ×2 (08:09→19:51)
[2018-10-13] MEDS: Enoxaparin Sodium 40 MG/0.4 ML SYRINGE SC SCH (08:09)
[2018-10-13 08:20] LABS: Hemoglobin 7.9 g/dL (14.0-18.0); Mean Corpuscular HGB CONC 32.4 g/dL (32.0-36.0); Mean Corpuscular Hemoglobin 36.7 pg (27.0-31.0); Mean Platelet Volume 8.4 fL (7.4-10.4); Platelet Count 171 thou/uL (130-400); Red Blood Cell (RBC) Count 2.16 mill/uL (4.70-6.10)
[2018-10-13 08:21] LABS: Lactic Acid 0.9 mmol/L (0.5-2.2)
[2018-10-13 08:31] LABS: Anion Gap 12 mmol/L (10-20); BUN (Urea Nitrogen) 22 mg/dL (8.4-25.7); Calc. Creatinine Clearance 0 mL/min (70-130); Calcium 8.5 mg/dL (7.8-10.44); Carbon Dioxide 20 mmol/L (23-31); Chloride 111 mmol/L (98-107); Estimated GFR-MDRD 56; Glucose 105 mg/dL (83-110); Potassium 3.7 mmol/L (3.5-5.1); Sodium 139 mmol/L (136-145)
[2018-10-13 09:07] LABS: Band 22 % (5-11); Lymphocytes 6 % (21-51); MDiff Complete? YES; Macrocytosis SLIGHT = 6-15 cells (100X) (0-5/hpf); Metamyelocyte 2 % (0-0); Monocytes 6 % (0-10); Myelocyte 2 % (0-0); Neutrophil 59 % (42-75); Platelet Morphology Comment Appears Adequate; Reactive Lymphocytes 3 % (0-10)
[2018-10-13] MEDS ORDERED: Vancomycin HCl 1.25 GM in Sodium Chloride 0.9% 250 ML 250 ML IVPB SCH (12:00)
[2018-10-13 12:42] VITALS: BMI 28.7
[2018-10-13] MEDS ORDERED: Sodium Chloride 0.9% 500 ML IV SCH (12:45)
--- NOTE | 2018-10-13 13:54 | PDOC.PN ---
- Subjective Encounter Start Date: 10/13/18 Encounter Start Time: 12:30 Mr. Roldan was seen today in follow-up of UTI with sepsis. He is clinically much improved. He is talking more, and is more oriented. His speech is clear. - Objective Resuscitation Status - Order Detail: 10/12/18 11:47 Resuscitation Status Routine Resuscitation Status: FULL: Full Resuscitation MAR Reviewed: Yes Vital Signs & Weight: Vital Signs (12 hours) Temp Pulse Resp BP Pulse Ox 10/13/18 11:00 98 F 74 18 112/60 100 10/13/18 07:52 97.6 F 62 18 91/49 L 100 10/13/18 07:36 100 10/13/18 04:09 99.0 F 85 24 H 130/54 L 100 Weight Weight 200 lb I&O: 10/12/18 10/13/18 10/14/18 06:59 06:59 06:59 Intake Total 2710 800 Output Total 900 Balance 1810 800 Result Diagrams: 10/13/18 07:44 10/13/18 07:44 Phys Exam - Physical Examination HEENT: PERRLA Respiratory: no wheezing, no rales, no rhonchi, clear to auscultation bilateral Cardiovascular: RRR, no significant murmur, no rub Gastrointestinal: soft, non-tender, positive bowel sounds Musculoskeletal: pulses present, edema present Dx/Plan (1) UTI (urinary tract infection) Status: Acute (2) Sepsis Code(s): A41.9 - SEPSIS, UNSPECIFIED ORGANISM Status: Acute (3) Acute metabolic encephalopathy Code(s): G93.41 - METABOLIC ENCEPHALOPATHY Status: Acute (4) Hypertension Code(s): I10 - ESSENTIAL (PRIMARY) HYPERTENSION Status: Chronic (5) BPH (benign prostatic hyperplasia) Code(s): N40.0 - BENIGN PROSTATIC HYPERPLASIA WITHOUT LOWER URINRY TRACT SYMP Status: Chronic (6) Status post total left knee replacement Code(s): Z96.652 - PRESENCE OF LEFT ARTIFICIAL KNEE JOINT Status: Chronic (7) Macrocytic anemia Code(s): D53.9 - NUTRITIONAL ANEMIA, UNSPECIFIED Status: Acute - Plan * UTI with sepsis and metabolic encephalopathy- he is clinically improved- will continue Zosyn. His urine culture is positive for a gram negative david, and Citrobacter is growing from one of his blood cultures. Will therefore discontinue Vancomycin * HTN- blood pressure is stable * BPH with urinary retention- will continue the Rangel Catheter. consider voiding trial prior to discharge. * Macrocystic anemia- his blood count dropped overnight, possibly due tot hydration- unsure if this has been working up in the past- will check a B-12 and Folic acid level and transfuse if necessary * Post recent knee replacement - continue PT/OT
[2018-10-13 17:33] LABS: Folate (Folic Acid) 17.1 ng/mL (7.0-31.4)
[2018-10-13] MEDS: Acetaminophen 325 MG TAB PO PRN (19:51)
[2018-10-13] MEDS: Finasteride 5 MG TAB PO SCH (19:51)
[2018-10-13] MEDS: Simvastatin 5 MG TAB PO SCH (19:51)
[2018-10-14] MEDS: Piperacillin/Tazobactam 3.375 GM in Sodium Chloride 0.9% 100 ML IVPB SCH ×4 (05:02→22:44)
[2018-10-14] MEDS: Folic Acid 1 MG TAB PO SCH (08:01)
[2018-10-14] MEDS: Famotidine 20 MG TAB PO SCH ×2 (08:01→20:14)
[2018-10-14] MEDS: Tamsulosin HCl 0.4 MG CAP PO SCH (08:01)
[2018-10-14] MEDS: Spironolactone 25 MG TAB PO SCH (08:01)
[2018-10-14] MEDS: Enoxaparin Sodium 40 MG/0.4 ML SYRINGE SC SCH (08:01)
[2018-10-14 08:07] LABS: Band 16 % (5-11); Eosinophils 1 % (0-10); Hemoglobin 7.9 g/dL (14.0-18.0); Lymphocytes 25 % (21-51); MDiff Complete? YES; Mean Corpuscular HGB CONC 32.9 g/dL (32.0-36.0); Mean Corpuscular Hemoglobin 37.9 pg (27.0-31.0); Mean Platelet Volume 8.5 fL (7.4-10.4); Metamyelocyte 8 % (0-0); Monocytes 10 % (0-10); Myelocyte 1 % (0-0); Neutrophil 39 % (42-75); Platelet Count 154 thou/uL (130-400); RBC Distribution Width 13.2 % (11.5-14.5); Red Blood Cell (RBC) Count 2.09 mill/uL (4.70-6.10); White Blood Cell (WBC) Count 6.6 thou/uL (4.8-10.8)
[2018-10-14] MEDS: traMADol HCl 50 MG TAB PO PRN ×2 (13:57→20:18)
--- NOTE | 2018-10-14 15:49 | PDOC.PN ---
- Subjective Encounter Start Date: 10/14/18 Encounter Start Time: 12:45 Mr. Roldan was seen today in follow-up of UTI with sepsis. He is clinically improved. His confusion continues to clear. - Objective Resuscitation Status - Order Detail: 10/12/18 11:47 Resuscitation Status Routine Resuscitation Status: FULL: Full Resuscitation MAR Reviewed: Yes Vital Signs & Weight: Vital Signs (12 hours) Temp Pulse Resp BP BP Pulse Ox 10/14/18 07:54 98.3 F 69 20 125/62 97 10/14/18 04:00 98.2 F 63 20 118/51 L 94 L Weight Weight 200 lb I&O: 10/13/18 10/14/18 10/15/18 06:59 06:59 06:59 Intake Total 2710 2470 Output Total 900 300 Balance 1810 2170 Result Diagrams: 10/14/18 06:00 10/13/18 07:44 Phys Exam - Physical Examination HEENT: PERRLA Respiratory: no wheezing, no rales, no rhonchi, clear to auscultation bilateral Cardiovascular: RRR, no significant murmur, no rub Gastrointestinal: soft, non-tender, no distention, positive bowel sounds Musculoskeletal: no edema, pulses present Dx/Plan (1) UTI (urinary tract infection) Status: Acute (2) Sepsis Code(s): A41.9 - SEPSIS, UNSPECIFIED ORGANISM Status: Acute (3) Acute metabolic encephalopathy Code(s): G93.41 - METABOLIC ENCEPHALOPATHY Status: Acute (4) Hypertension Code(s): I10 - ESSENTIAL (PRIMARY) HYPERTENSION Status: Chronic (5) BPH (benign prostatic hyperplasia) Code(s): N40.0 - BENIGN PROSTATIC HYPERPLASIA WITHOUT LOWER URINRY TRACT SYMP Status: Chronic (6) Status post total left knee replacement Code(s): Z96.652 - PRESENCE OF LEFT ARTIFICIAL KNEE JOINT Status: Chronic (7) Macrocytic anemia Code(s): D53.9 - NUTRITIONAL ANEMIA, UNSPECIFIED Status: Acute (8) Urine retention Code(s): R33.9 - RETENTION OF URINE, UNSPECIFIED Status: Acute - Plan * UTI- continue Zosyn- still awaiting the culture results from the urine * Urinary retention- continue the gavin catheter for now * Metabolic encephalopathy- improved * Macrocytic anemia- his H&H remains at 7.9/24- folic acid and B-12 levels were normal- will monitor .
[2018-10-14] MEDS: Simvastatin 5 MG TAB PO SCH (20:14)
[2018-10-14] MEDS: Finasteride 5 MG TAB PO SCH (20:15)
[2018-10-15] MEDS: traMADol HCl 50 MG TAB PO PRN (02:23)
[2018-10-15] MEDS: Piperacillin/Tazobactam 3.375 GM in Sodium Chloride 0.9% 100 ML IVPB SCH ×2 (05:06→10:48)
[2018-10-15] MEDS: Acetaminophen 325 MG TAB PO PRN (06:24)
[2018-10-15] MEDS: Enoxaparin Sodium 40 MG/0.4 ML SYRINGE SC SCH (07:51)
[2018-10-15] MEDS: Spironolactone 25 MG TAB PO SCH (07:52)
[2018-10-15] MEDS: Folic Acid 1 MG TAB PO SCH (07:52)
[2018-10-15] MEDS: Tamsulosin HCl 0.4 MG CAP PO SCH (07:52)
[2018-10-15] MEDS: Famotidine 20 MG TAB PO SCH ×2 (07:52→20:37)
--- NOTE | 2018-10-15 13:37 | PDOC.PN ---
- Subjective Encounter Start Date: 10/15/18 Encounter Start Time: 11:45 Mr. Roldan was seen today in follow-up of UTI with sepsis. He is clinically improved. He is sitting uo in a chair. He says the knee pain is much better. He does not have any new complaints. - Objective Resuscitation Status - Order Detail: 10/12/18 11:47 Resuscitation Status Routine Resuscitation Status: FULL: Full Resuscitation MAR Reviewed: Yes Vital Signs & Weight: Vital Signs (12 hours) Temp Pulse Resp BP 10/15/18 08:00 97.5 F L 67 18 132/62 Weight Weight 200 lb I&O: 10/14/18 10/15/18 10/16/18 06:59 06:59 06:59 Intake Total 2470 350 Output Total 300 1450 Balance 2170 -1100 Result Diagrams: 10/14/18 06:00 10/13/18 07:44 Phys Exam - Physical Examination HEENT: PERRLA Respiratory: no wheezing, no rales, no rhonchi, clear to auscultation bilateral Cardiovascular: RRR, no significant murmur, no rub Gastrointestinal: soft, non-tender, no distention, positive bowel sounds Musculoskeletal: pulses present, edema present + trace pedeal edema Dx/Plan (1) UTI (urinary tract infection) Status: Acute (2) Sepsis Code(s): A41.9 - SEPSIS, UNSPECIFIED ORGANISM Status: Acute (3) Acute metabolic encephalopathy Code(s): G93.41 - METABOLIC ENCEPHALOPATHY Status: Acute (4) Hypertension Code(s): I10 - ESSENTIAL (PRIMARY) HYPERTENSION Status: Chronic (5) BPH (benign prostatic hyperplasia) Code(s): N40.0 - BENIGN PROSTATIC HYPERPLASIA WITHOUT LOWER URINRY TRACT SYMP Status: Chronic (6) Status post total left knee replacement Code(s): Z96.652 - PRESENCE OF LEFT ARTIFICIAL KNEE JOINT Status: Chronic (7) Macrocytic anemia Code(s): D53.9 - NUTRITIONAL ANEMIA, UNSPECIFIED Status: Acute - Plan * UTI with sepsis and metabolic encephalopathy- much improved- Urine and 1/2 blood cultures is growing Citrobacter amalonaticus, which is sensitive to both Floroquinolones, and Cephalosporins. Will discontinue Zosyn, and place him on oral Levaquin. * The metabolic encephalopathy is much improved, he is answering questions appropriately, and has participated in PT * HTN- blood pressure is stable * Macrocytic Anemia- will check a CBC in the AM *
[2018-10-15] MEDS: Simvastatin 5 MG TAB PO SCH (20:37)
[2018-10-15] MEDS: Finasteride 5 MG TAB PO SCH (20:37)
[2018-10-16 06:39] LABS: Band 12 % (5-11); Eosinophils 2 % (0-10); Hemoglobin 8.6 g/dL (14.0-18.0); Lymphocytes 30 % (21-51); MDiff Complete? YES; Macrocytosis SLIGHT = 6-15 cells (100X) (0-5/hpf); Mean Corpuscular HGB CONC 32.8 g/dL (32.0-36.0); Mean Corpuscular Hemoglobin 37.7 pg (27.0-31.0); Mean Platelet Volume 8.5 fL (7.4-10.4); Monocytes 15 % (0-10); Myelocyte 8 % (0-0); Neutrophil 33 % (42-75); Platelet Count 192 thou/uL (130-400); Platelet Morphology Comment Appears Adequate; RBC Distribution Width 12.9 % (11.5-14.5); Red Blood Cell (RBC) Count 2.28 mill/uL (4.70-6.10); White Blood Cell (WBC) Count 7.5 thou/uL (4.8-10.8)
[2018-10-16] MEDS: Enoxaparin Sodium 40 MG/0.4 ML SYRINGE SC SCH (09:05)
[2018-10-16] MEDS: Tamsulosin HCl 0.4 MG CAP PO SCH (09:05)
[2018-10-16] MEDS: Cyanocobalamin (Vitamin B-12) 1,000 MCG TAB PO SCH (09:06)
[2018-10-16] MEDS: Famotidine 20 MG TAB PO SCH ×2 (09:06→20:28)
[2018-10-16] MEDS: Furosemide 20 MG TAB PO SCH ×2 (09:06→20:28)
[2018-10-16] MEDS: Spironolactone 25 MG TAB PO SCH (09:06)
[2018-10-16] MEDS: Folic Acid 1 MG TAB PO SCH (09:06)
--- NOTE | 2018-10-16 12:10 | PDOC.PN ---
- Subjective Encounter Start Date: 10/16/18 Encounter Start Time: 12:07 Mr. Roldan was seen today in follow-up of UTI with sepsis. He does not have any complaints. He appears to be back to his baseline. - Objective Resuscitation Status - Order Detail: 10/12/18 11:47 Resuscitation Status Routine Resuscitation Status: FULL: Full Resuscitation MAR Reviewed: Yes Vital Signs & Weight: Vital Signs (12 hours) Temp Pulse Resp BP Pulse Ox 10/16/18 08:00 94 L 10/16/18 07:50 98.1 F 70 20 151/55 H 94 L Weight Weight 200 lb I&O: 10/15/18 10/16/18 10/17/18 06:59 06:59 06:59 Intake Total 350 800 240 Output Total 1450 1800 Balance -1100 -1000 240 Result Diagrams: 10/16/18 05:38 10/13/18 07:44 Phys Exam - Physical Examination HEENT: PERRLA Respiratory: no wheezing, no rales, no rhonchi, clear to auscultation bilateral Cardiovascular: RRR, no significant murmur, no rub Gastrointestinal: soft, non-tender, positive bowel sounds Musculoskeletal: no edema, pulses present Dx/Plan (1) UTI (urinary tract infection) Status: Acute (2) Sepsis Code(s): A41.9 - SEPSIS, UNSPECIFIED ORGANISM Status: Acute (3) Acute metabolic encephalopathy Code(s): G93.41 - METABOLIC ENCEPHALOPATHY Status: Acute (4) Hypertension Code(s): I10 - ESSENTIAL (PRIMARY) HYPERTENSION Status: Chronic (5) BPH (benign prostatic hyperplasia) Code(s): N40.0 - BENIGN PROSTATIC HYPERPLASIA WITHOUT LOWER URINRY TRACT SYMP Status: Chronic (6) Status post total left knee replacement Code(s): Z96.652 - PRESENCE OF LEFT ARTIFICIAL KNEE JOINT Status: Chronic (7) Macrocytic anemia Code(s): D53.9 - NUTRITIONAL ANEMIA, UNSPECIFIED Status: Acute - Plan * UTI- urine culture is growing Citrobacter spp. Which is sensitive to Levaquin * He is stable for discharge * Will do a voiding trial prior, if he is not able to void, then will replace the gavin and send him to jail with it, with Urology follow-up as Outpatient.
[2018-10-16] MEDS: Simvastatin 5 MG TAB PO SCH (20:28)
[2018-10-16] MEDS: Finasteride 5 MG TAB PO SCH (20:28)
[2018-10-16] MEDS: traMADol HCl 50 MG TAB PO PRN (20:29)
[2018-10-17] MEDS: Furosemide 20 MG TAB PO SCH ×2 (05:15→14:50)
[2018-10-17] MEDS: Famotidine 20 MG TAB PO SCH ×2 (08:13→21:02)
[2018-10-17] MEDS: Tamsulosin HCl 0.4 MG CAP PO SCH (08:13)
[2018-10-17] MEDS: Spironolactone 25 MG TAB PO SCH (08:13)
[2018-10-17] MEDS: Enoxaparin Sodium 40 MG/0.4 ML SYRINGE SC SCH (08:13)
[2018-10-17] MEDS: Folic Acid 1 MG TAB PO SCH (08:13)
[2018-10-17] MEDS: Cyanocobalamin (Vitamin B-12) 1,000 MCG TAB PO SCH (08:14)
[2018-10-17] MEDS ORDERED: Ciprofloxacin 500 MG TAB PO SCH ×2 (10:15→20:00)
[2018-10-17 10:41] LABS: Hemoglobin 9.6 g/dL (14.0-18.0); Mean Corpuscular Hemoglobin 37.1 pg (27.0-31.0); Mean Platelet Volume 8.3 fL (7.4-10.4); Platelet Count 242 thou/uL (130-400); Red Blood Cell (RBC) Count 2.59 mill/uL (4.70-6.10); White Blood Cell (WBC) Count 7.4 thou/uL (4.8-10.8)
[2018-10-17 10:54] LABS: ALT (SGPT) 35 U/L (8-55); AST (SGOT) 36 U/L (5-34); Albumin 3.6 g/dL (3.4-4.8); Alkaline Phosphatase 52 U/L (40-150); Anion Gap 16 mmol/L (10-20); BUN (Urea Nitrogen) 13 mg/dL (8.4-25.7); Bilirubin, Total 0.8 mg/dL (0.2-1.2); Calc. Creatinine Clearance 57 mL/min (70-130); Calcium 9.8 mg/dL (7.8-10.44); Carbon Dioxide 20 mmol/L (23-31); Chloride 102 mmol/L (98-107); Estimated GFR-MDRD 61; Globulin 3.5 g/dL (2.4-3.5); Glucose 111 mg/dL (83-110); Magnesium 2.1 mg/dL (1.6-2.6); Phosphorus 3.8 mg/dL (2.3-4.7); Protein, Total 7.1 g/dL (5.8-8.1); Sodium 134 mmol/L (136-145)
[2018-10-17 10:56] LABS: Band 15 % (5-11); Eosinophils 1 % (0-10); Lymphocytes 22 % (21-51); MDiff Complete? YES; Macrocytosis SLIGHT = 6-15 cells (100X) (0-5/hpf); Metamyelocyte 6 % (0-0); Monocytes 19 % (0-10); Myelocyte 4 % (0-0); Neutrophil 28 % (42-75); Platelet Morphology Comment Appears Adequate; Reactive Lymphocytes 5 % (0-10)
--- NOTE | 2018-10-17 13:53 | DIS ---
DATE OF ADMISSION: 10/12/2018 DATE OF DISCHARGE: 10/17/2018 DISCHARGE DISPOSITION: [facility]. ALLERGIES: NO KNOWN DRUG ALLERGIES. PATIENT CONDITION: The patient was seen and examined on the day of discharge. Denies any new complaints. No chest pain, shortness of breath, palpitations, fever, or chills reported. DISCHARGE MEDICATIONS: 1. Ciprofloxacin 500 mg twice a day for 10 more days. 2. Florastor 250 mg daily. 3. All other medications were left unchanged. BRIEF HOSPITAL COURSE: The patient is an 88-year-old male, who underwent recent left total knee replacement, presented to the hospital with altered mentation. Please refer to the history and physical dated 12 October 2018 for further details. The patient was admitted to the hospital with a diagnosis of toxic metabolic encephalopathy secondary to urinary tract infection. His urinalysis on admission showed greater than 50 wbc's with 3+ bacteria. His WBC count on admission was 18.1 with 27% bandemia. He was started on broad-spectrum antibiotics. His blood culture one of two as well as urine culture was positive for Citrobacter sensitive to ciprofloxacin. The patient has been afebrile over the last 48 hours. His WBC count has normalized to 7.4 over the last 3 days. Rangel catheter has been removed. He will continue Flomax and finasteride. He will benefit from Urology evaluation as an outpatient. He appears stable for discharge. FINAL DIAGNOSES: 1. Sepsis with acute organ dysfunction secondary to Citrobacter urinary tract infection/bacteremia. (Catheter associated UTI - present on admission) 2. Toxic metabolic encephalopathy secondary to #1. 3. Lactic acidosis/metabolic acidosis secondary to sepsis. 4. Abnormal LFTs secondary to sepsis, improved. Total bilirubin on admission was 1.6, at discharge is 0.8. 5. Chronic kidney disease stage 3. 6. Macrocytic anemia with normal vitamin B12 and folic acid. 7. Recent left total knee replacement. 8. Urinary retention. Rangel catheter has been removed. The patient is voiding appropriately. He has a followup with Urology as outpatient. 9. Hypertension. 10. Degenerative joint disease. 11. Benign prostatic hypertrophy. 12. Dementia. 13. Hyperlipidemia. Job ID: [id number] [facility]
--- NOTE | 2018-10-17 14:53 | PQF ---
DATE: 10-17-18 ATTN: DR. FABIAN STACK Please exercise your independent, professional judgment in responding to the clarification form. Clinical indicators are provided on the bottom of this form for your review Please check appropriate box(s): [ ] SEPSIS with UTI due to FERNANDO CATHETER [ ] SEPSIS with UTI NOT due to FERNANDO CATHETER [ ] Other diagnosis [ ] Unable to determine In addition, please specify: Present on Admission (POA): [ ] Yes [ ] No [ ] Unable to determine For continuity of documentation, please document condition throughout progress notes and discharge summary. Thank You. CLINICAL INDICATORS - SIGNS / SYMPTOMS / LABS ER: WAS SENT TO [facility] AFTER BEING D/C FROM HOSPITAL AFTER KNEE SX. TODAY PATIENT PULLED OUT FERNANDO ER DX: ACUTE CYSTITIS, AMS, SEPSIS D/C SUMMARY: SEPSIS WITH ACUTE ORGAN DYSFUNCTION SECONDARY TO CITROBACTER UTI/ BACTEREMIA RISK FACTORS: ER: WAS SENT TO [facility] AFTER BEING D/C FROM HOSPITAL AFTER KNEE SX. TODAY PATIENT PULLED OUT FERNANDO TREATMENT: ER: IVF NS, ZOSYN IV, VANCOMYCIN D/C SUMMARY: FERNANDO HAS BEEN REMOVED (This form is maintained as a part of the permanent medical record) 2014 [employer] All Rights Reserved [email or web address] [email or web address] Office: [phone] [facility] HOSPITALMy[facility]
--- NOTE | 2018-10-17 16:37 | PDOC.PN ---
- Subjective Encounter Start Date: 10/17/18 Encounter Start Time: 09:30 Patient seen and examined for bacteremia/UTI. No new complaints. No overnight events - Objective Resuscitation Status - Order Detail: 10/12/18 11:47 Resuscitation Status Routine Resuscitation Status: FULL: Full Resuscitation MAR Reviewed: Yes Vital Signs & Weight: Vital Signs (12 hours) Temp Pulse Resp BP Pulse Ox 10/17/18 08:00 94 L 10/17/18 07:00 97.2 F L 69 18 132/67 94 L Weight Weight 200 lb I&O: 10/16/18 10/17/18 10/18/18 06:59 06:59 06:59 Intake Total 800 660 Output Total 1800 1600 Balance -1000 -940 Result Diagrams: 10/17/18 10:19 10/17/18 10:19 Phys Exam - Physical Examination Constitutional: NAD Respiratory: no wheezing, no rhonchi Cardiovascular: RRR, no rub Gastrointestinal: soft, non-tender, positive bowel sounds Musculoskeletal: no edema Neurological: moves all 4 limbs Dx/Plan - Plan DVT proph w/lovenox, DVT proph w/SCDs FINAL DIAGNOSES: 1. Sepsis with acute organ dysfunction secondary to Citrobacter urinary tract infection/bacteremia. (Catheter associated UTI - present on admission) 2. Toxic metabolic encephalopathy secondary to #1. 3. Lactic acidosis/metabolic acidosis secondary to sepsis. 4. Abnormal LFTs secondary to sepsis, improved. Total bilirubin on admission was 1.6, at discharge is 0.8. 5. Chronic kidney disease stage 3. 6. Macrocytic anemia with normal vitamin B12 and folic acid. 7. Recent left total knee replacement. 8. Urinary retention. Rangel catheter has been removed. The patient is voiding appropriately. He has a followup with Urology as outpatient. 9. Hypertension. 10. Degenerative joint disease. 11. Benign prostatic hypertrophy. 12. Dementia. 13. Hyperlipidemia. PLAN: Change Levaquin to IV Cetriaxone Labs reviewed Consult ID Per son - Patient's mentation has worsened today compared to 2 days ago. AM labs Check Postvoid residual Reduce Lasix to daily Cont other meds as below Review of Systems - Review of Systems Respiratory: negative: Cough, Dry, Shortness of Breath, Hemoptysis, SOB with Excertion, Pleuritic Pain, Sputum, Wheezing Cardiovascular: negative: chest pain, palpitations, orthopnea, paroxysmal nocturnal dyspnea, edema, light headedness, other - Medications/Allergies Allergies/Adverse Reactions: Allergies Allergy/AdvReac Type Severity Reaction Status Date / Time No Known Drug Allergies Allergy Verified 04/24/18 17:38 Medications: Current Medications Acetaminophen (Tylenol) 650 mg PO Q4H PRN PRN Reason: Headache/Fever/Mild Pain (1-3) Last Admin: 10/15/18 06:24 Dose: 650 mg Ciprofloxacin (Cipro) 500 mg PO 0600,2000 [facility] Cyanocobalamin (Vitamin B-12) 1,000 mcg PO DAILY [facility] Last Admin: 10/17/18 08:14 Dose: 1,000 mcg Enoxaparin Sodium (Lovenox) 40 mg SC 0900 [facility] Last Admin: 10/17/18 08:13 Dose: 40 mg Famotidine (Pepcid) 20 mg PO BID [facility] Last Admin: 10/17/18 08:13 Dose: 20 mg Finasteride (Proscar) 5 mg PO QPM [facility] Last Admin: 10/16/18 20:28 Dose: 5 mg Folic Acid (Folvite) 1 mg PO DAILY [facility] Last Admin: 10/17/18 08:13 Dose: 1 mg Furosemide (Lasix) 40 mg PO 0600,1400 [facility] Last Admin: 10/17/18 14:50 Dose: 40 mg Metoprolol Succinate (Toprol Xl) 100 mg PO DAILY [facility] Last Admin: 10/17/18 08:13 Dose: 100 mg Simvastatin (Zocor) 10 mg PO QPM [facility] Last Admin: 10/16/18 20:28 Dose: 10 mg Spironolactone (Aldactone) 25 mg PO QAM-WM [facility] Last Admin: 10/17/18 08:13 Dose: 25 mg Tamsulosin HCl (Flomax) 0.4 mg PO DAILY [facility] Last Admin: 10/17/18 08:13 Dose: 0.4 mg Tramadol HCl (Ultram) 50 mg PO QID PRN PRN Reason: PAIN/DISCOMFORT Last Admin: 10/16/18 20:29 Dose: 50 mg
[2018-10-17] MEDS: cefTRIAXone\\ROCEPHIN 2 GM in Sodium Chloride 0.9% 100 ML IVPB SCH (17:53)
[2018-10-17] MEDS ORDERED: Lorazepam 0.5 MG TAB PO PRN (18:45)
[2018-10-17] MEDS: Finasteride 5 MG TAB PO SCH (21:03)
[2018-10-17] MEDS: Simvastatin 5 MG TAB PO SCH (21:03)
[2018-10-17] MEDS: Senokot S 8.6-50 MG TAB PO SCH (21:03)
[2018-10-18] MEDS ORDERED: Ziprasidone 20 MG VIAL IM PRN (01:37)
[2018-10-18] MEDS ORDERED: Sterile Water 10 ML VIAL FS PRN (01:44)
[2018-10-18 08:01] LABS: Hemoglobin 10.2 g/dL (14.0-18.0); Mean Corpuscular HGB CONC 33.1 g/dL (32.0-36.0); Mean Corpuscular Hemoglobin 37.3 pg (27.0-31.0); Mean Platelet Volume 8.7 fL (7.4-10.4); Platelet Count 291 thou/uL (130-400); RBC Distribution Width 13.2 % (11.5-14.5); Red Blood Cell (RBC) Count 2.72 mill/uL (4.70-6.10); White Blood Cell (WBC) Count 7.9 thou/uL (4.8-10.8)
[2018-10-18 08:10] LABS: Anion Gap 16 mmol/L (10-20); BUN (Urea Nitrogen) 16 mg/dL (8.4-25.7); Calc. Creatinine Clearance 52 mL/min (70-130); Calcium 10.3 mg/dL (7.8-10.44); Carbon Dioxide 23 mmol/L (23-31); Chloride 102 mmol/L (98-107); Estimated GFR-MDRD 54; Glucose 112 mg/dL (83-110); Potassium 3.6 mmol/L (3.5-5.1); Sodium 137 mmol/L (136-145)
[2018-10-18] MEDS: Furosemide 40 MG TAB PO SCH (08:38)
[2018-10-18] MEDS: Saccharomyces boulardii 250 MG CAP PO SCH (08:38)
[2018-10-18] MEDS: Tamsulosin HCl 0.4 MG CAP PO SCH (08:38)
[2018-10-18] MEDS: Cyanocobalamin (Vitamin B-12) 1,000 MCG TAB PO SCH (08:39)
[2018-10-18] MEDS: Famotidine 20 MG TAB PO SCH (08:39)
[2018-10-18] MEDS: Folic Acid 1 MG TAB PO SCH (08:39)
[2018-10-18] MEDS: Enoxaparin Sodium 40 MG/0.4 ML SYRINGE SC SCH (08:39)
[2018-10-18] MEDS: Senokot S 8.6-50 MG TAB PO SCH ×2 (08:39→20:29)
[2018-10-18] MEDS: Spironolactone 25 MG TAB PO SCH (08:39)
[2018-10-18 09:46] LABS: Band 8 % (5-11); Lymphocytes 36 % (21-51); MDiff Complete? YES; Macrocytosis SLIGHT = 6-15 cells (100X) (0-5/hpf); Metamyelocyte 2 % (0-0); Monocytes 22 % (0-10); Myelocyte 5 % (0-0); Neutrophil 23 % (42-75); Nucleated RBC 1 % (0); Platelet Morphology Comment Appears Adequate; Polychromasia SLIGHT = 2-3 cells (100X) (0-2/hpf); Reactive Lymphocytes 4 % (0-10)
[2018-10-18] MEDS: cefTRIAXone\\ROCEPHIN 2 GM in Sodium Chloride 0.9% 100 ML IVPB SCH (17:02)
--- NOTE | 2018-10-18 19:42 | PDOC.PN ---
- Subjective Encounter Start Date: 10/18/18 Encounter Start Time: 15:00 Patient seen and examined for Encephalopathy. Remains confused. No new complaints. Overnight events noted. - Objective Resuscitation Status - Order Detail: 10/12/18 11:47 Resuscitation Status Routine Resuscitation Status: FULL: Full Resuscitation MAR Reviewed: Yes Vital Signs & Weight: Vital Signs (12 hours) Temp Pulse Resp BP Pulse Ox 10/18/18 08:00 97.4 F L 75 18 122/75 97 Weight Weight 200 lb I&O: 10/17/18 10/18/18 10/19/18 06:59 06:59 06:59 Intake Total 660 Output Total 1600 200 Balance -940 -200 Result Diagrams: 10/18/18 07:07 10/18/18 07:07 Phys Exam - Physical Examination Constitutional: NAD Respiratory: no wheezing, no rhonchi Cardiovascular: RRR, no rub Gastrointestinal: soft, non-tender, positive bowel sounds Musculoskeletal: no edema Neurological: moves all 4 limbs Dx/Plan - Plan DVT proph w/SCDs FINAL DIAGNOSES: 1. Sepsis with acute organ dysfunction secondary to Citrobacter urinary tract infection/bacteremia. (Catheter associated UTI - present on admission) 2. Toxic metabolic encephalopathy secondary to #1. 3. Lactic acidosis/metabolic acidosis secondary to sepsis. 4. Abnormal LFTs secondary to sepsis, improved. 5. Chronic kidney disease stage 3. 6. Macrocytic anemia with normal vitamin B12 and folic acid. 7. Recent left total knee replacement. 8. Urinary retention. Gavin catheter has been removed. 9. Hypertension. 10. Degenerative joint disease. 11. Benign prostatic hypertrophy. 12. Dementia. 13. Hyperlipidemia. PLAN: Cont IV Cetriaxone Await ID input AM labs Postvoid residual under 200 ml Cont other meds as below Attempted to call twice with no answer Not stable for discharge due to confusion. Microbiology 10/12/18 10:44 Venous blood - Left Hand Blood Culture - Final NO GROWTH IN 5 DAYS 10/12/18 10:39 Venous blood - Right Arm Blood Culture - Final Citrobacter amalonaticus 10/12/18 08:45 Urine gavin catheter Urine Culture - Final Citrobacter amalonaticus Review of Systems - Review of Systems Respiratory: negative: Cough, Dry, Shortness of Breath, Hemoptysis, SOB with Excertion, Pleuritic Pain, Sputum, Wheezing Cardiovascular: negative: chest pain, palpitations, orthopnea, paroxysmal nocturnal dyspnea, edema, light headedness, other - Medications/Allergies Allergies/Adverse Reactions: Allergies Allergy/AdvReac Type Severity Reaction Status Date / Time No Known Drug Allergies Allergy Verified 04/24/18 17:38 Medications: Current Medications Acetaminophen (Tylenol) 650 mg PO Q4H PRN PRN Reason: Headache/Fever/Mild Pain (1-3) Last Admin: 10/15/18 06:24 Dose: 650 mg Cyanocobalamin (Vitamin B-12) 1,000 mcg PO DAILY [facility] Last Admin: 10/18/18 08:39 Dose: 1,000 mcg Enoxaparin Sodium (Lovenox) 40 mg SC 0900 [facility] Last Admin: 10/18/18 08:39 Dose: 40 mg Finasteride (Proscar) 5 mg PO QPM [facility] Last Admin: 10/17/18 21:03 Dose: 5 mg Folic Acid (Folvite) 1 mg PO DAILY [facility] Last Admin: 10/18/18 08:39 Dose: 1 mg Furosemide (Lasix) 40 mg PO DAILY [facility] Last Admin: 10/18/18 08:38 Dose: 40 mg Ceftriaxone Sodium 2 gm/ (Sodium Chloride) 100 mls @ 200 mls/hr IVPB Q24HR [facility] Last Admin: 10/18/18 17:02 Dose: 100 mls Lorazepam (Ativan) 0.5 mg PO DAILYPRN PRN PRN Reason: Anxiety/Agitation Last Admin: 10/17/18 21:04 Dose: 0.5 mg Metoprolol Succinate (Toprol Xl) 100 mg PO DAILY [facility] Last Admin: 10/18/18 08:38 Dose: 100 mg Saccharomyces Boulardii (Florastor) 250 mg PO DAILY [facility] Last Admin: 10/18/18 08:38 Dose: 250 mg Senna/Docusate Sodium (Senokot S) 1 tab PO BID [facility] Last Admin: 10/18/18 08:39 Dose: 1 tab Simvastatin (Zocor) 10 mg PO QPM [facility] Last Admin: 10/17/18 21:03 Dose: 10 mg Spironolactone (Aldactone) 25 mg PO QAM-WM [facility] Last Admin: 10/18/18 08:39 Dose: 25 mg Sterile Water (Water For Injection) 1.2 ml FS PRN PRN PRN Reason: RECONSTITUTION Last Admin: 10/18/18 02:02 Dose: 1.2 ml Tamsulosin HCl (Flomax) 0.4 mg PO DAILY TOO Last Admin: 10/18/18 08:38 Dose: 0.4 mg Tramadol HCl (Ultram) 50 mg PO QID PRN PRN Reason: PAIN/DISCOMFORT Last Admin: 10/16/18 20:29 Dose: 50 mg Ziprasidone (Geodon) 10 mg IM Q2H PRN PRN Reason: Agitation Last Admin: 10/18/18 02:03 Dose: 10 mg
--- NOTE | 2018-10-18 19:56 | CT ---
CT OF THE ABDOMEN AND PELVIS WITHOUT CONTRAST: 10/18/18 INDICATION: History of renal stones with urosepsis. COMPARISON: Prior CT of the abdomen and pelvis dated 11/23/12. FINDINGS: There is bibasilar ground glass opacity which may reflect subsegmental atelectasis; however, an alve olitis cannot be excluded. There is a 2.3 cm cyst within the right mid kidney. No ureteral calculus or hydronephrosis is evident . There is a small renal vascular calcification involving the left mid kidney. There are moderate to severe calcification involving the abdominal and pelvic vasculature. There is moderate distention of the bladder. The prostate is prominently enlarged measuring 8.1 cm. There is stable anterior abdominal wall hernia containing fat and loops of unobstructed small bowel a nd colon. There are scattered degenerative and osteoarthritic change. 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 IMPRESSION: 1. No hydronephrosis or ureteral calculus demonstrated. 2. Right renal cyst. 3. Moderate distention of the bladder with prostate enlargement. 4. Bibasilar ground glass opacity may reflect subsegmental volume loss, edema or pneumonia. Tony mmend correlation. 5. Findings of prior granulomatous disease. 6. Stable upper anterior abdominal wall hernia containing fat, unobstructed colon and small sara l. POS: [facility]
[2018-10-18] MEDS: Simvastatin 5 MG TAB PO SCH (20:29)
[2018-10-18] MEDS: Finasteride 5 MG TAB PO SCH (20:29)
--- NOTE | 2018-10-18 22:42 | CON ---
DATE OF CONSULTATION: 10/18/2018 REASON FOR CONSULTATION: Bacteremia. HISTORY OF PRESENT ILLNESS: An 88-year-old, history of hypertension, BPH, and renal insufficiency, stage 3, who recently had a total knee replacement at [facility]. Subsequently after discharge, he became confused, which progressed over the next few days. The patient had to be restrained and then improved and then transferred to [facility] and started participating in physical therapy then became confused again, tried to remove his Rangel catheter which had been inserted, eventually was able to remove it and developed some hematuria. On arrival, he was admitted because of evidence of significant infectious process. The patient was started on broad-spectrum antimicrobial coverage, now have 2 sets of blood cultures positive. He currently is awake, but does not know where he is. The only thing he could tell me was his name, very poor recall, will follow some commands. PAST MEDICAL HISTORY: Hypertension, nephrolithiasis, osteoarthritis, BPH, dementia. PAST SURGICAL HISTORY: Pacemaker, ventral hernia, pericardial window, unclear of the etiology, testicular abscess. ALLERGIES: NONE. FAMILY HISTORY: COPD. SOCIAL HISTORY: . He used to smoke, but quit 10 years before. CURRENT MEDICATIONS: 1. Ceftriaxone. 2. Vitamin B12. 3. Enoxaparin. 4. Finasteride. 5. Folic acid. 6. Furosemide. 7. Lorazepam. 8. Zocor. 9. Aldactone. 10. Flomax. PHYSICAL EXAMINATION: VITAL SIGNS: T-max 101, October 13, he has been afebrile since. BP 120/70, pulse 75, respirations 18. SKIN: No areas of skin breakdown. The patient has a peripheral IV access. No lymphadenopathy. HEENT: Ocular movements conjugate. Oral cavity is somewhat dry. Still quite a few teeth in place, quite a bit of decay. NECK: Supple. No jugular venous distention. No thyromegaly. LUNGS: Symmetric air entry without crackles or wheezing. HEART: S1, S2 with a soft aortic murmur. ABDOMEN: Soft, not distended or tender. No ascites. No bladder distention. No organomegaly. The indwelling Rangel catheter has been removed. NEUROLOGIC: He is able to move extremities on command, but is somewhat disoriented. LABORATORY DATA: His white cell count is down to 7.9, hemoglobin 10.2, platelets 291 with 23% of neutrophils, 8% bands, 36% lymphocytes, 22% monocytes. INR 1.1. Sodium 137, creatinine 1.26. Liver profile; AST 36, albumin 3.6. Urinalysis, greater than 50 wbc's and microbiology with Citrobacter amalonaticus, which has resistance to cefoxitin, gentamicin, and Bactrim, susceptibility to quinolones. ASSESSMENT: 1. 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 2. Benign prostatic hypertrophy. 3. Recent left knee replacement 4. Accidental removal of Rangel catheter at the [facility] and then the development of invasive urinary tract infection with Citrobacter species as the more likely scenario. DISCUSSION: Differential diagnosis includes pyelonephritis, prostatitis with bacteremia. An intraabdominal inflammatory process is less likely. In view of the history of nephrolithiasis, we will need to evaluate CT stone protocol to verify that he does not have a significant obstruction. If that is cleared, then he can be discharged on oral quinolone for a total of 2 weeks approximately. Hopefully, he will have a successful voiding trial from here on. Job ID: [id number]
[2018-10-19 07:10] LABS: Anion Gap 16 mmol/L (10-20); BUN (Urea Nitrogen) 22 mg/dL (8.4-25.7); Calc. Creatinine Clearance 50 mL/min (70-130); Carbon Dioxide 20 mmol/L (23-31); Chloride 104 mmol/L (98-107); Estimated GFR-MDRD 52; Glucose 118 mg/dL (83-110); Potassium 4.4 mmol/L (3.5-5.1); Sodium 136 mmol/L (136-145)
[2018-10-19 07:21] LABS: Mean Corpuscular HGB CONC 33.5 g/dL (32.0-36.0); Mean Corpuscular Hemoglobin 37.8 pg (27.0-31.0); Mean Platelet Volume 8.2 fL (7.4-10.4); Platelet Count 319 thou/uL (130-400); RBC Distribution Width 13.2 % (11.5-14.5); Red Blood Cell (RBC) Count 2.65 mill/uL (4.70-6.10); White Blood Cell (WBC) Count 6.7 thou/uL (4.8-10.8)
[2018-10-19] MEDS: Saccharomyces boulardii 250 MG CAP PO SCH (08:16)
[2018-10-19] MEDS: Spironolactone 25 MG TAB PO SCH (08:17)
[2018-10-19] MEDS: Senokot S 8.6-50 MG TAB PO SCH ×2 (08:17→20:02)
[2018-10-19] MEDS: Cyanocobalamin (Vitamin B-12) 1,000 MCG TAB PO SCH (08:17)
[2018-10-19] MEDS: Tamsulosin HCl 0.4 MG CAP PO SCH (08:17)
[2018-10-19] MEDS: Folic Acid 1 MG TAB PO SCH (08:17)
[2018-10-19] MEDS: Furosemide 40 MG TAB PO SCH (08:17)
[2018-10-19] MEDS: Enoxaparin Sodium 40 MG/0.4 ML SYRINGE SC SCH (08:17)
[2018-10-19 08:25] LABS: Band 7 % (5-11); Lymphocytes 33 % (21-51); MDiff Complete? YES; Macrocytosis SLIGHT = 6-15 cells (100X) (0-5/hpf); Metamyelocyte 3 % (0-0); Monocytes 15 % (0-10); Myelocyte 12 % (0-0); Neutrophil 30 % (42-75); Platelet Morphology Comment Appears Adequate
[2018-10-19] MEDS ORDERED: Ciprofloxacin 500 MG TAB PO SCH (11:00)
--- NOTE | 2018-10-19 12:08 | CT ---
CT BRAIN NONCONTRAST: 10/19/2018 11:20 a.m. HISTORY: An 88-year-old male with altered mental status for several days. FINDINGS: There is no midline shift or any other mass effect. There is no evidence of acute intracranial hemor rhage, large cortical infarct, obstructive hydrocephalus, or extraaxial fluid collection. The calvar ium is intact. There is diffuse parenchymal volume loss. There are low attenuation areas in the whi te matter. These are nonspecific, but in a patient of this age, they are probably chronic ischemic w annmarie matter changes due to microvascular atherosclerosis. There is no significant interval change co mpared to 11/27/2016. IMPRESSION: 1) No acute intracranial findings. 2) Involutional changes and chronic ischemic white matter changes. jn [] POS: [facility]
[2018-10-19] MEDS: Acetaminophen 325 MG TAB PO PRN (12:11)
[2018-10-19] MEDS: Acetaminophen 325 MG TAB PO SCH ×2 (16:12→20:02)
--- NOTE | 2018-10-19 19:30 | PDOC.PN ---
- Subjective Encounter Start Date: 10/19/18 Encounter Start Time: 10:30 Patient seen and examined for Encephalopathy/Bacteremia. Remains confused. No new complaints. No overnight events - Objective Resuscitation Status - Order Detail: 10/12/18 11:47 Resuscitation Status Routine Resuscitation Status: FULL: Full Resuscitation MAR Reviewed: Yes Vital Signs & Weight: Vital Signs (12 hours) Temp Pulse Resp BP Pulse Ox 10/19/18 16:13 97.5 F L 63 20 138/60 95 10/19/18 08:15 96 10/19/18 08:14 97.6 F 66 20 150/56 H 96 10/19/18 08:00 97.7 F 65 14 148/65 H 96 Weight Weight 200 lb I&O: 10/18/18 10/19/18 10/20/18 06:59 06:59 06:59 Intake Total 750 Output Total 200 Balance -200 750 Result Diagrams: 10/19/18 06:18 10/19/18 06:18 Phys Exam - Physical Examination Constitutional: NAD Respiratory: no wheezing, no rhonchi Cardiovascular: RRR, no rub Gastrointestinal: soft, non-tender, positive bowel sounds Musculoskeletal: no edema Dx/Plan - Plan plan discussed w/ family (daughter in law), DVT proph w/SCDs 1. Sepsis with acute organ dysfunction secondary to Citrobacter urinary tract infection/bacteremia. (Catheter associated UTI - present on admission) 2. Toxic metabolic encephalopathy secondary to #1. 3. Lactic acidosis/metabolic acidosis secondary to sepsis. 4. Abnormal LFTs secondary to sepsis, improved. 5. Chronic kidney disease stage 3. 6. Macrocytic anemia with normal vitamin B12 and folic acid. 7. Recent left total knee replacement. 8. Urinary retention. Rangel catheter has been removed. Post void <200 ml 9. Hypertension. 10. Degenerative joint disease. 11. Benign prostatic hypertrophy. 12. Dementia. 13. Hyperlipidemia. PLAN: DC IV Atbx Start PO Cipro CT brain/ consult Neuro per family req AM labs Cont other meds as below Review of Systems - Review of Systems Respiratory: negative: Cough, Dry, Shortness of Breath, Hemoptysis, SOB with Excertion, Pleuritic Pain, Sputum, Wheezing Cardiovascular: negative: chest pain, palpitations, orthopnea, paroxysmal nocturnal dyspnea, edema, light headedness, other - Medications/Allergies Allergies/Adverse Reactions: Allergies Allergy/AdvReac Type Severity Reaction Status Date / Time No Known Drug Allergies Allergy Verified 04/24/18 17:38 Medications: Current Medications Acetaminophen (Tylenol) 650 mg PO Q4H PRN PRN Reason: Headache/Fever/Mild Pain (1-3) Last Admin: 10/19/18 12:11 Dose: 650 mg Acetaminophen (Tylenol) 650 mg PO TID [facility] Last Admin: 10/19/18 16:12 Dose: 650 mg Ciprofloxacin (Cipro) 500 mg PO 0600,1999 [facility] Cyanocobalamin (Vitamin B-12) 1,000 mcg PO DAILY [facility] Last Admin: 10/19/18 08:17 Dose: 1,000 mcg Enoxaparin Sodium (Lovenox) 40 mg SC 0900 [facility] Last Admin: 10/19/18 08:17 Dose: 40 mg Finasteride (Proscar) 5 mg PO QPM [facility] Last Admin: 10/18/18 20:29 Dose: 5 mg Folic Acid (Folvite) 1 mg PO DAILY [facility] Last Admin: 10/19/18 08:17 Dose: 1 mg Furosemide (Lasix) 40 mg PO DAILY [facility] Last Admin: 10/19/18 08:17 Dose: 40 mg Metoprolol Succinate (Toprol Xl) 100 mg PO DAILY [facility] Last Admin: 10/19/18 08:16 Dose: 100 mg Saccharomyces Boulardii (Florastor) 250 mg PO DAILY [facility] Last Admin: 10/19/18 08:16 Dose: 250 mg Senna/Docusate Sodium (Senokot S) 1 tab PO BID [facility] Last Admin: 10/19/18 08:17 Dose: 1 tab Simvastatin (Zocor) 10 mg PO QPM [facility] Last Admin: 10/18/18 20:29 Dose: 10 mg Spironolactone (Aldactone) 25 mg PO QAM-WM [facility] Last Admin: 10/19/18 08:17 Dose: 25 mg Tamsulosin HCl (Flomax) 0.4 mg PO DAILY [facility] Last Admin: 10/19/18 08:17 Dose: 0.4 mg Tramadol HCl (Ultram) 50 mg PO QID PRN PRN Reason: PAIN/DISCOMFORT Last Admin: 10/16/18 20:29 Dose: 50 mg
[2018-10-19] MEDS: Finasteride 5 MG TAB PO SCH (20:02)
[2018-10-19] MEDS: Ciprofloxacin 500 MG TAB PO SCH (20:02)
[2018-10-19] MEDS: Simvastatin 5 MG TAB PO SCH (20:02)
--- NOTE | 2018-10-19 23:14 | CON ---
DATE OF CONSULTATION: 10/19/2018 CONSULTING PHYSICIAN: Hospitalist Service. IMPRESSION: Toxic encephalopathy, secondary to urosepsis. PLAN: Supportive care. HISTORY OF PRESENT ILLNESS: Mr. Roldan is an 88-year-old gentleman who recently underwent a total knee replacement. He had some postoperative confusion, which apparently cleared up. He developed recurrent confusion at the house and was brought back to the hospital. His laboratory studies were most notable for positive blood culture with Citrobacter. Dr. Benavidez has been consulted to address his infection. He has not been febrile since admission. He did initially have a temperature of a 103.2 while being evaluated in the emergency room. He has been persistently confused, but not agitated or delirious. He had a CT scan of the brain done, which showed evidence of chronic small-vessel ischemic changes. Otherwise, his vital signs have been stable since admission. PAST MEDICAL HISTORY: Hyperlipidemia, chronic renal insufficiency, BPH, pacemaker implantation, hypertension, osteoarthritis, anemia, gait difficulties, and cellulitis. ALLERGIES: NONE REPORTED. SOCIAL HISTORY: No tobacco or alcohol use. FAMILY HISTORY: Noncontributory. MEDICATIONS: Medication list was reviewed. REVIEW OF SYSTEMS: Not obtainable due to his confusional state. PHYSICAL EXAMINATION: GENERAL: He is a well-nourished elderly man, lying in bed, in no acute distress. VITAL SIGNS: Stable. He is afebrile at this time. HEENT: Pupils are equal. Conjunctivae clear. Oropharynx clear. Cranium, normocephalic and atraumatic. NECK: Supple. No lymphadenopathy noted. EXTREMITIES: No cyanosis or edema noted. NEUROLOGIC: He awakened easily and was conversant. He knew who he was, but he was disoriented to place and time. He follow commands reasonably well. Speech was fluent. There was no facial asymmetry noted. He had good parent coach strength bilaterally. There was no tremor or dysmetria present. Sensation was intact in the extremities. No abnormal movements were seen. Gait was not tested. DIAGNOSTIC DATA: EKG shows a paced rhythm. CT images were reviewed. SUMMARY: This is an elderly man with urosepsis and some secondary confusion. I do not see any acute neurologic issues. Job ID: [id number]
[2018-10-20] MEDS: Ciprofloxacin 500 MG TAB PO SCH (05:21)
[2018-10-20] MEDS: Acetaminophen 325 MG TAB PO SCH ×2 (08:24→15:30)
[2018-10-20] MEDS: Saccharomyces boulardii 250 MG CAP PO SCH (08:24)
[2018-10-20] MEDS: Furosemide 40 MG TAB PO SCH (08:24)
[2018-10-20] MEDS: Enoxaparin Sodium 40 MG/0.4 ML SYRINGE SC SCH (08:24)
[2018-10-20] MEDS: Spironolactone 25 MG TAB PO SCH (08:24)
[2018-10-20] MEDS: Tamsulosin HCl 0.4 MG CAP PO SCH (08:25)
[2018-10-20] MEDS: Cyanocobalamin (Vitamin B-12) 1,000 MCG TAB PO SCH (08:25)
[2018-10-20] MEDS: Folic Acid 1 MG TAB PO SCH (08:25)
[2018-10-20] MEDS: Senokot S 8.6-50 MG TAB PO SCH (08:25)
--- NOTE | 2018-10-20 16:42 | PDOC.EVN ---
Event Note - Event Note Event Note: DC SUMMARY #[id number]
--- NOTE | 2018-10-20 18:10 | DIS ---
DATE OF ADMISSION: 10/12/2018 DATE OF DISCHARGE: 10/20/2018 ADMITTING DIAGNOSES: Confusion, altered mental status, benign prostatic hyperplasia, hypertension, history of kidney stone, arthritis, hyperlipidemia, chronic kidney disease, and dementia. DISCHARGE DIAGNOSES: Confusion, altered mental status, benign prostatic hyperplasia, hypertension, history of kidney stone, arthritis, hyperlipidemia, chronic kidney disease, and dementia. HISTORY OF PRESENT ILLNESS: This is an 88-year-old male, who admitted to the hospital with BPH, chronic kidney disease, total knee replacement, and hypertension, was found to have confusion and apparently having "zoned out" at the time of admission. The patient was admitted to Internal Medicine Team followed very closely as well by Infectious Disease and Neurology. The patient had a neurological workup done, which was negative. Infectious disease workup yielded a Citrobacter in the urine as well as Citrobacter in the blood. The patient at point of time of discharge was stable, was to follow up with outpatient PCP for further management and care. Infectious Disease evaluation was obtained for bacteremia. The patient was to be discharged on quinolone for 2 weeks. The patient was given antibiotics at the point in time of discharge. The patient was stable. Case and plan discussed with the patient's son at length. CONDITION: Stable. PROGNOSIS: Guarded. DIET: Low-fat, low-calorie, and high-fiber diet. ACTIVITY: As tolerated with assistance as needed. FOLLOWUP: Follow up with PCP, Orthopedic Surgery, and ID within 3 weeks for further management and care. Case and plan discussed with patient and son at length. They understand and agree with this plan. Job ID: [id number]
[2018-10-20 19:51] VITALS: BP 111/59; TEMP 97.9
--- NOTE | 2018-10-21 17:05 | EKG ---
Test Reason : Blood Pressure : / mmHG Vent. Rate : 106 BPM Atrial Rate : 106 BPM P-R Int : 140 ms QRS Dur : 170 ms QT Int : 412 ms P-R-T Axes : 101 -64 106 degrees QTc Int : 547 ms Electronic ventricular pacemaker Confirmed by YEVGENIY JEROME D.O. ([id number]), communications editor MILLY TURCIOS ([id number]) on 10/21/2018 5:04:24 PM Referred By: Confirmed By:YEVGENIY JEROME D.O.
== END 2018-10-20 16:53 | DRG 698 ==
LOC: ERS 06:34 → T4-A 10:58
PROVIDERS: ADMIT Internal Medicine; ATTEND Internal Medicine
DX: T83.511A Infection and inflammatory reaction due to indwelling urethral catheter, initial encounter (principal); A41.9 Sepsis, unspecified organism; G92 Toxic encephalopathy; E87.2 Acidosis; N39.0 Urinary tract infection, site not specified; I12.9 Hypertensive chronic kidney disease with stage 1 through stage 4 chronic kidney disease, or unspecified chronic kidney disease; N18.3 Chronic kidney disease, stage 3 (moderate); Z96.652 Presence of left artificial knee joint; E78.5 Hyperlipidemia, unspecified; F03.90 Unspecified dementia, unspecified severity, without behavioral disturbance, psychotic disturbance, mood disturbance, and anxiety; N40.1 Benign prostatic hyperplasia with lower urinary tract symptoms; R33.8 Other retention of urine; D53.9 Nutritional anemia, unspecified; M19.90 Unspecified osteoarthritis, unspecified site; Z87.891 Personal history of nicotine dependence; Z95.0 Presence of cardiac pacemaker
CPT/HCPCS: 36415; 51702; 70450; 74176; 80048; 80053; 81003; 81015; 82550; 82607; 82746; 83605; 83735; 84100; 85025; 85610; 85730; 87040; 87077; 87086; 87149; 87186; 93005; 94760; 96365; 96367; 96375; 96376; A4216; J0696; J1630; J1650; J2270; J2543; J3370; J3486; J7050

== ENCOUNTER 2019-10-04 08:25 | Inpatient (IN) | payer MEDICARE, OTHER ==
--- NOTE | 2019-10-04 09:04 | CT ---
CT BRAIN PERFORMED WITHOUT CONTRAST ENHANCEMENT: Date: 10/04/2019 COMPARISON: 10/19/2018 study. HISTORY: Fall with confusion. FINDINGS: There is generalized ventricular and sulcal prominence. There is decreased attenuation to the periven tricular white matter consistent with some chronic white matter change. No signs of intracerebral hem orrhage or extra-axial fluid collections. Mastoid air cells are clear. Mucosal change is seen within the left maxillary sinus and a small air fluid level. If there is facial trauma, consideration for CT for evaluation for a subtle fracture would be suggested. IMPRESSION: Atrophy with chronic white matter change. Other incidental findings as noted above. POS: [facility]
[2019-10-04 09:19] LABS: Hemoglobin 11.4 g/dL (14.0-18.0); Mean Corpuscular HGB CONC 32.1 g/dL (32.0-36.0); Mean Corpuscular Hemoglobin 37.5 pg (27.0-31.0); Mean Platelet Volume 10.2 fL (7.4-10.4); Platelet Count 144 thou/uL (130-400); RBC Distribution Width 13.2 % (11.5-14.5); Red Blood Cell (RBC) Count 3.03 mill/uL (4.70-6.10); White Blood Cell (WBC) Count 21.3 thou/uL (4.8-10.8)
[2019-10-04] MEDS ORDERED: cefTRIAXone\\ROCEPHIN 2 GM VIAL ONE (09:21)
[2019-10-04] MEDS ORDERED: Acetaminophen 500 MG TAB ONE (09:21)
[2019-10-04 09:33] LABS: Bilirubin Negative (Negative); Blood, Urine 2+ (Negative); Clarity Turbid (Clear); Glucose, Urine (Dipstick) Normal (Negative); Leukocyte 500 Leu/uL (Negative); Nitrite Negative (Negative); Protein, Urine (Dipstick) 50 mg/dL (Neg-Trace); RBC/HPF Greater than 50 HPF (0-3); Squamous Epithelial 0-3 HPF (0-3); Urobilinogen Normal mg/dL (Less than 2)
[2019-10-04 09:37] LABS: Band 36 % (5-11); Lymphocytes 4 % (21-51); MDiff Complete? YES; Macrocytosis SLIGHT = 6-15 cells (100X) (0-5/hpf); Monocytes 5 % (0-10); Neutrophil 52 % (42-75); Reactive Lymphocytes 3 % (0-10)
[2019-10-04 09:41] LABS: ALT (SGPT) 233 U/L (8-55); AST (SGOT) 412 U/L (5-34); Albumin 4.1 g/dL (3.4-4.8); Alkaline Phosphatase 78 U/L (40-110); Anion Gap 19 mmol/L (10-20); BUN (Urea Nitrogen) 32 mg/dL (8.4-25.7); Bilirubin, Total 1.4 mg/dL (0.2-1.2); Calc. Creatinine Clearance 0 mL/min (70-130); Calcium 9.1 mg/dL (7.8-10.44); Carbon Dioxide 19 mmol/L (23-31); Chloride 102 mmol/L (98-107); Estimated GFR-MDRD 42; Globulin 3.4 g/dL (2.4-3.5); Glucose 158 mg/dL (83-110); Lipase 18 U/L (8-78); Potassium 4.4 mmol/L (3.5-5.1); Protein, Total 7.5 g/dL (5.8-8.1); Sodium 136 mmol/L (136-145)
[2019-10-04 09:53] LABS: Transitional Epithelial 0-3 HPF (None Seen)
[2019-10-04 10:02] LABS: Bacteria/HPF None Seen HPF (None Seen)
--- NOTE | 2019-10-04 10:20 | RAD ---
XR Chest 1 View Portable HISTORY: Altered mental status and weakness COMPARISON: 09/26/2018 FINDINGS: The heart size is normal. Left-sided pacer device remains in place. The aorta is tortuous. The lungs are well expanded without focal areas of consolidation, pneumothorax or pleural effusions. IMPRESSION: No radiographic evidence of acute cardiopulmonary process.
[2019-10-04 10:45] LABS: CKMB 48.8 ng/mL (0-6.6)
[2019-10-04] MEDS ORDERED: Aspirin Chewable 81 MG TAB ONE (10:56)
[2019-10-04] MEDS ORDERED: Ondansetron PF 4 MG/2 ML Vial IVP PRN (10:57)
[2019-10-04] MEDS ORDERED: Acetaminophen 650 MG Suppository PR PRN (10:57)
[2019-10-04] MEDS ORDERED: traMADol HCl 50 MG TAB PO PRN (10:57)
[2019-10-04] MEDS ORDERED: Bisacodyl 10 MG SUPP PR PRN (10:57)
--- NOTE | 2019-10-04 11:32 | CT ---
CT ABDOMEN AND PELVIS PERFORMED WITHOUT CONTRAST ENHANCEMENT: Date: 10/04/2019 HISTORY: Abdominal pain. Elevated LFTs. COMPARISON: 10/18/2018 examination. FINDINGS: The lung bases show ground-glass somewhat reticular changes in both bases, similar to the previous ex am. This is probably chronic in nature in this patient. The liver, spleen, pancreas, and gallbladder regions appear unremarkable. Right and left adrenal glands are normal. A hypodensity in the right kidney is stable and most likely represents a cyst. There is an area of increased attenuation along the anterior cortex of the left k idney, also stable, with cortical thinning. No obstruction. No renal or ureteral calculi. No signific ant periaortic or mesenteric adenopathy. There is some mild ectasia of the infrarenal aorta. CT of pelvis was performed without contrast enhancement. The prostate is markedly enlarged. Bladder w all is thickened and there is increased attenuation within the lumen of the bladder. This could repre sent some hyperdense debris or blood. The appendix region appears unremarkable. I see no inflammatory change. No free fluid demonstrated. Large anterior wall hernia is again demonstrated, unchanged since the prior exam. IMPRESSION: 1. Persistent ground-glass somewhat reticular changes in the lung bases, probably all chronic in ernestina ure. 2. Stable appearance to the large upper anterior abdominal midline wall hernia. 3. Markedly enlarged prostate with bladder wall thickening. There is increased attenuation within th e lumen of the bladder. This could represent some hyperdense debris within the bladder or possibly bl ood. POS: [facility]
[2019-10-04] MEDS: Sodium Chloride 0.9% 1,000 ML IV SCH (12:33)
--- NOTE | 2019-10-04 13:05 | HP ---
REASON FOR ADMISSION: Sepsis, urinary tract infection. HISTORY OF PRESENTING ILLNESS: Please note majority of this history is obtained by talking to son, who is here at bedside as the patient is not fully oriented. Yesterday, the patient apparently developed shortness of breath and was feeling weak. He also vomited once. They took him from his assisted living facility in [facility] in [place] to [facility]. He had initial workup done there, which was negative and they sent him back to the facility. Around 4:30 this morning, the patient was found on the floor. They called his son and when he arrived, he was confused and was lethargic as well. Further workup in the ER reveals findings of sepsis with urinary tract infection and elevated LFTs. The son at bedside mentions that he has done this before with prior urinary tract infections. No complaints of chest pain at present. He currently is wanting to eat or drink something. PAST MEDICAL AND SURGICAL HISTORY: Hypertension, nephrolithiasis, osteoarthritis, benign prostatic hypertrophy, dementia, pacemaker, ventral hernia with history of pericardial window, history of testicular abscess, history of kidney stones in the past, tonsillectomy. CURRENT MEDICATIONS: The patient is on; 1. Proscar 1 tablet daily. 2. Folic acid 800 mcg daily. 3. Lidocaine transdermal patch daily. 4. Toprol-XL 50 mg daily. 5. Sertraline 25 mg daily. 6. Famotidine 40 mg daily. 7. Spironolactone 25 mg daily. 8. Simvastatin 10 mg p.o. at bedtime. 9. Flomax 0.4 mg p.o. twice daily. 10. Lasix 40 mg twice daily. 11. Vitamin B12 1000 mcg p.o. daily. ALLERGIES: NO KNOWN DRUG ALLERGIES. PERSONAL HISTORY: Does not abuse alcohol or drugs. No history of smoking. He is currently a resident at [facility]. He normally helps with transfers and ambulates very little with a walker. FAMILY HISTORY: Significant for COPD and lung cancer. CODE STATUS: Full. Power of employment law attorney is his son, Mr. Theodore Roldan, number to reach him [phone]. REVIEW OF SYSTEMS: Cannot be obtained as the patient is not fully oriented. PHYSICAL EXAMINATION: GENERAL: The patient is an 89-year-old male, who is currently not in any acute distress. VITAL SIGNS: Blood pressure 150/60, pulse 78 per minute, respiratory rate 18 per minute, temperature 102.2 rectal, saturating 96% on room air. NECK: Supple. No elevated JVD. HEENT: Eyes; extraocular muscles intact. Pupils reacting to light. Oral cavity, mucous membranes are dry. No exudates or congestion. CARDIOVASCULAR: S1 and S2 heard. Regular rhythm. RESPIRATORY: Air entry 1+ bilateral. No rales or rhonchi. ABDOMEN: Soft. There is a large ventral hernia. No bowel sounds are heard. No rigidity or guarding. EXTREMITIES: No peripheral edema or calf tenderness. The patient has some abrasions over both knees. Peripheral pulses are 1+ bilateral. No ischemic ulcerations or gangrene. CENTRAL NERVOUS SYSTEM: No gross focal deficits noted. The patient is seen moving all extremities. PSYCHIATRIC: It cannot be accurately assessed, but no obvious hallucinations or delusions. The patient is not fully oriented at present. LABORATORY DATA: White count of 21, hemoglobin and hematocrit of 11 and 35, platelet count is 144, MCV is 117 with 52% neutrophils and 36% bands. Serum bicarb 19, BUN 32, creatinine 1.5, serum glucose 158, total bilirubin 1.4, lactic acid 3.3, AST 412, ALT 233, alkaline phosphatase 78, CK-MB 48.8, troponin I 0.19, BNP 503. Albumin is 4.1, lipase is 18. UA shows signs of UTI, also has greater than 50 rbc's. Influenza A and B antigens are negative. DIAGNOSTIC DATA: CT brain done shows atrophic changes, otherwise no acute abnormality. CT stone protocol done shows persistent ground-glass somewhat reticular changes in the lung bases, probably chronic large upper anterior abdominal midline wall hernia, markedly enlarged prostate with bladder wall thickening. EKG done shows AV paced rhythm at 77 beats per minute, QRS duration is 144 milliseconds, corrected QT is 509 milliseconds. CLINICAL IMPRESSION AND PLAN: The patient will be admitted to telemetry for sepsis with urinary tract infection. Blood and urine cultures have been obtained in the ER. He will be on cefepime and vancomycin for now until cultures are back. The patient is clinically dry and we will place him on normal saline at 100 mL per hour. He received a liter of fluid in the ER. We will continue his Lopressor at 25 mg twice daily, Proscar 5 mg p.o. q.p.m., Flomax 0.4 mg p.o. twice daily. If needed, the patient will have a Rangel catheter if he develops retention. He has enlarged prostate on the CAT scan. We will continue his Zocor, Ultram, folic acid, and vitamin B12 as before. Echo with 2D Doppler for LV function will be obtained. We will also obtain a CK level. The patient has had prior history of invasive UTI and bloodstream infection with sepsis in the past and in view of this, we will obtain consultation with Dr. Benavidez. We will trend his troponin. If it gets elevated, we will consult his collection correspondent, Dr. Moore. PRIMARY CARE PHYSICIAN: Dr. Wendy Ordoñez. Job ID: [id number]
[2019-10-04] MEDS ORDERED: Heparin 1,000 UNITS/ML VIAL ONE (14:57)
[2019-10-04 15:06] LABS: Lactic Acid 2.8 mmol/L (0.5-2.2)
[2019-10-04 15:13] VITALS: BMI 31.1
[2019-10-04] MEDS: Cefepime 1 GM in Sodium Chloride 0.9% 100 ML IVPB SCH (20:02)
[2019-10-04] MEDS: Simvastatin 5 MG TAB PO SCH (20:03)
[2019-10-04] MEDS: Metoprolol Tartrate 25 MG TAB PO SCH (20:03)
[2019-10-04] MEDS: Finasteride 5 MG TAB PO SCH (20:03)
[2019-10-04] MEDS: Tamsulosin HCl 0.4 MG CAP PO SCH (20:04)
[2019-10-05 04:49] LABS: ALT (SGPT) 168 U/L (8-55); AST (SGOT) 282 U/L (5-34); Albumin 3.3 g/dL (3.4-4.8); Alkaline Phosphatase 53 U/L (40-110); Anion Gap 11 mmol/L (10-20); BUN (Urea Nitrogen) 28 mg/dL (8.4-25.7); Band 8 % (5-11); Bilirubin, Total 0.8 mg/dL (0.2-1.2); Calc. Creatinine Clearance 56 mL/min (70-130); Calcium 7.8 mg/dL (7.8-10.44); Carbon Dioxide 21 mmol/L (23-31); Chloride 106 mmol/L (98-107); Estimated GFR-MDRD 57; Globulin 2.7 g/dL (2.4-3.5); Glucose 126 mg/dL (83-110); Hemoglobin 8.9 g/dL (14.0-18.0); Lymphocytes 16 % (21-51); MDiff Complete? YES; Mean Corpuscular HGB CONC 32.9 g/dL (32.0-36.0); Mean Corpuscular Hemoglobin 37.6 pg (27.0-31.0); Mean Platelet Volume 9.6 fL (7.4-10.4); Monocytes 14 % (0-10); Neutrophil 62 % (42-75); Platelet Count 105 thou/uL (130-400); Platelet Morphology Comment Appears Decreased; Potassium 3.8 mmol/L (3.5-5.1); RBC Distribution Width 13.2 % (11.5-14.5); Red Blood Cell (RBC) Count 2.38 mill/uL (4.70-6.10); Sodium 134 mmol/L (136-145); White Blood Cell (WBC) Count 13.3 thou/uL (4.8-10.8)
--- NOTE | 2019-10-05 07:52 | CON ---
DATE OF CONSULTATION: 10/04/2019 REASON FOR CONSULT: Gross hematuria, urinary tract infection, sepsis. HISTORY OF PRESENT ILLNESS: Mr. Roldan is an 89-year-old male with history of BPH , massively enlarged prostate, previously followed by [facility]. I did see him in the remote past in an ER consultation as he presented with testicular abscess. He underwent right orchiectomy due to testicular abscess.. He has been on BPH medications Avodart and Flomax for numerous years, has a baseline PVR ranging from 2 to 300 mL. He previously was admitted due to Citrobacter urosepsis, his son who is his power of motor lodge clerk is a door cutter who lives in [place] is at bedside. His mental status had declined since his total knee replacement at [facility] in September 2018 with refractory knee pain. Subsequently , he developed urinary retention, he has removed his catheter traumatically with mental status changes. Apparently, he has removed his catheter traumatically on multiple occasions, which is of concern. I last saw him in March of 2019, which a diagnostic cystoscopy was performed demonstrating diffusely trabeculated bladder consistent with chronic incomplete emptying with no evidence of bladder tumor. There was no evidence of urethral lesion. He had a suggestion of an early proximal penile stricture. However, these were very subtle and nonobstructing and scope was easily maneuvered. He has severely obstructing prostate and has history of incomplete emptying. I had previously discussed with his son who is the power of motor lodge clerk extensively regarding his disposition as I have concerns regarding his comorbidities, his advanced age and his recurrent traumatic Rangel catheter removal. Given his large prostate volume, ideally a suprapubic prostatectomy will be preferable. However, this is invasive morbid procedure. TURP has been discussed. His CT prostate volume is about 340 g. As such, TURP would be suboptimal, would require staged intervention. Moreover, the son is fully aware of his father's deconditioned status and advanced age and does not desire him to pursue further surgical intervention. As such, we did discuss extensively regarding options of CIC, suprapubic tube, urethral Rangel catheter, chronic. The patient's mental capacity is such that he is unable to perform a CIC. I do not recommend chronic indwelling urethral Rangel catheter as he has pulled out catheters on multiple occasions . Therefore, we discussed suprapubic tube, there is a risk of suprapubic tube being removed as well; however, his son desires patient to be observed despite incomplete emptying with full understanding that recurrent retention, infection, sepsis, upper tract deterioration could occur. He currently lives in [facility] in assisted living, he presented to [facility] ER due to fall, a catheter was placed for straight cath, apparently it demonstrated gross hematuria and subsequently removed. A CT was subsequently performed demonstrating massively enlarged prostate as previous with some clot debris. Nursing staff in the floor placed a 16- Ukrainian catheter without significant issues and 400 mL of PVR was obtained, grossly blood and urine; therefore urologic consultation was obtained. Son is at bedside PAST MEDICAL HISTORY: Include BPH, dyslipidemia, chronic renal insufficiency, stage III, COPD, pericardial effusion, empyema of the left chest, history of AV block, status post pacemaker followed by Dr. 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 PAST SURGICAL HISTORY: 1. Pericardial window. 2. Left lung decortication. 3. Pacemaker. 4. 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 5. Left knee replacement. 6. Local cystoscopy demonstrating severely obstructing prostate, diffuse bladder trabeculation in March 2019. ALLERGIES: NO KNOWN DRUG ALLERGIES. SOCIAL HISTORY: He is a nonsmoker, lives in assisted living. Power of motor lodge clerk , is his son who is at bedside. REVIEW OF SYSTEMS: Ten-point review of systems as above, otherwise noncontributory. PHYSICAL EXAMINATION: VITAL SIGNS: He presented with temperature of 102, currently is 98, 65, 16, 96, 130/62. I's and O's not documented as he presented to the floor this morning. GENERAL: The patient appears fatigued, chronically ill-appearing, elderly male son at bedside. Oriented x1 HEENT: Grossly unremarkable. Poor dentition. HEART: Regular rate. No obvious murmurs. LUNGS: Decreased inspiratory effort. ABDOMEN: Morbidly obese, protuberant. There is incisional ventral hernia. Upper abdomen, possibility of right inguinal hernia. : Demonstrates uncircumcised phallus. Foreskin is somewhat difficult to retract, however, meatus is easily visible. His pre-existing Rangel catheter demonstrates grossly dark tomato colored urine. I did irrigate his Rangel catheter at the bedside, which we evacuated about 100 to 150 mL of clots. I did transition to a three-way Rangel catheter. His pre-existing Rangel catheter was removed and an 18-Ukrainian 30 mL three-way Rangel catheter placed without difficulty. I subsequently manually irrigated him at bedside and we further obtained about 50-60 mL of further clots and irrigated to clear. CBI tubing is attached demonstrating a low rate with light pink to clear urine. Left hemiscrotum is empty consistent with orchiectomy. Right testicle is grossly unremarkable with no evidence of scrotal cellulitis, induration, fluctuance of concern. EXTREMITIES: Bilateral pitting edema 1+. NEUROLOGIC: Difficult to assess due to mental status. PSYCHIATRIC: Appears to be appropriate, answers questions and responds to his name. PERTINENT LABORATORY DATA: White count 21, hemoglobin 11, creatinine is 1.5, and his baseline creatinine is variable from 1.1 to 1.3. His previous hemoglobin A1c was 5.6 in 2010. IMAGING: CT of the abdomen and pelvis in October 2012 demonstrated a large anterior abdominal hernia with mesenteric fat. There is markedly enlarged prostate. Per my review CT prostate volume averages about [address] on this admission, which I reviewed myself, demonstrates chronic ground-glass lung changes at the bases, stable appearing large upper anterior abdominal wall hernia, markedly enlarged prostate with bladder wall thickening with increased attenuation within the lumen, hyperdense debris, likely blood. IMPRESSION: 1. Mr. Roldan is an 89-year-old male with past medical history of hypertension, arrhythmia, chronic obstructive pulmonary disease, prediabetes, with history of recurrent urinary tract infection. 2. History of chronic incomplete emptying, postvoid residual on average of about 2 to 300 mL. 3. Prior history of Citrobacter urinary tract infection, sensitive to cefepime, resistant to cefoxitin, gentamicin and Bactrim. Currently, he is on cefepime and vancomycin per hospitalist. Current admission due to likely urosepsis, urinary tract infection, gross hematuria secondary to above. I did irrigate his Rangel catheter at bedside on continuous bladder irrigation. will monitor his clinical course with broad-spectrum antibiotic therapy. A long discussion with the son at bedside regarding his father's frail nature and deconditioned status. As previous, he has declined prior surgical intervention for benign prostatic hypertrophy, which I agree and is reasonable given his advanced age, his significant comorbidities and morbidity, mortality associated given his advanced age. As such, we discussed options of suprapubic tube after convalescence from acute urinary tract infection, sepsis as he presents acutely ill. Son still is indecisive regarding definitive drainage of his bladder with full understanding as he has concerns about traumatic catheter removal either with urethral or suprapubic tube. The son relates that he accepts the fact that his father does not empty complete with risk of recurrent urinary tract infection, renal insufficiency, recurrent gross hematuria, which he is aware. I encouraged him to consider hospice palliative care, which he agrees to have a consultation. Continue supportive measure. Anticoagulation contraindicated due to presenting gross hematuria. Job ID: [id number] MTDD
--- NOTE | 2019-10-05 08:34 | PRG ---
DATE OF SERVICE: 10/05/2019 SUBJECTIVE: The patient is resting comfortably, 24-hour sitter at bedside. OBJECTIVE: GENERAL: The patient oriented x1. VITAL SIGNS: Vital signs are stable. He was admitted with T-max of 102, currently is 98. 73, 20, 95, 110/53. He has been afebrile for about 24 hours. I's and O 's 3540 in 2625 out on CBI. ABDOMEN: Morbidly obese. Large ventral incisional hernia. No rigidity. No rebound. : Rangel catheter is adequately secured. CBI running at a very low rate, clear output noted. I did hand irrigate at the bedside which demonstrates no persistent clots of concern. PERTINENT LABORATORY DATA: Urine culture and blood culture negative thus far. He does have a history previously of Citrobacter urosepsis based on that sensitivity appropriate as it was sensitive to cefepime, resistant to cefoxitin, gentamicin , and Bactrim. Creatinine today is 1.2. Admitted with creatinine of 1.5. Admitting CBC 21,000, this morning is 13, hemoglobin 8.9, admitting hemoglobin of 11. IMPRESSION AND PLAN: Mr. Roldan is an 89-year-old male with history of massively enlarged prostate, with history of incomplete void. His previous PVR has been around 200 to 300 mL. Nursing staff placed a Rangel catheter yesterday with 400 mL of PVR. I did manually irrigate him at bedside late last night, subsequently his CBI this morning is clear. hold CBI and monitor his urine output. His hematuria is significantly improved. Long discussion with the patient and son last night regarding consideration for palliative hospice evaluation consultation. Continue broad-spectrum antibiotic therapy. Infectious Disease consult has been ordered by Primary Service. Continue indwelling Rangel catheter and monitor for degree of hematuria. If recurrence of hematuria, CBI to be re-initiated. His prognosis remains guarded given his advanced age. ]power of admitted attorneys son does not desire his father to proceed with any major surgery. As previous, we had discussed options of suprapubic tube for urinary diversion, which the patient and son declined. . Son has been fully informed regarding his risk of recurrent UTI due to history of very large prostate and incomplete emptying. Son desires conservative observation. Continue medical management. No anticoagulation due to presenting gross hematuria. [facility] covering this weekend if needed. Job ID: [id number] [facility]
[2019-10-05] MEDS ORDERED: Tamsulosin HCl 0.4 MG CAP PO SCH (09:00)
[2019-10-05] MEDS ORDERED: Enoxaparin Sodium 30 MG/0.3 ML SYRINGE SC SCH (09:00)
[2019-10-05] MEDS: Cefepime 1 GM in Sodium Chloride 0.9% 100 ML IVPB SCH ×2 (09:29→20:37)
[2019-10-05] MEDS: Acetaminophen 325 MG TAB PO PRN ×2 (09:30→20:37)
[2019-10-05] MEDS: Tamsulosin HCl 0.4 MG CAP PO SCH ×2 (09:30→20:36)
[2019-10-05] MEDS: Saccharomyces boulardii 250 MG CAP PO SCH (09:30)
[2019-10-05] MEDS: Cyanocobalamin (Vitamin B-12) 1,000 MCG TAB PO SCH (09:30)
[2019-10-05] MEDS: Famotidine 20 MG TAB PO SCH (09:30)
[2019-10-05] MEDS: Folic Acid 1 MG TAB PO SCH (09:30)
[2019-10-05] MEDS: Metoprolol Tartrate 25 MG TAB PO SCH ×2 (09:30→20:38)
[2019-10-05] MEDS: Sodium Chloride 0.9% 1,000 ML IV SCH ×2 (09:41→20:37)
[2019-10-05] MEDS ORDERED: Vancomycin HCl 1 GM in Premix Bag 1 BAG IVPB SCH (10:00)
--- NOTE | 2019-10-05 12:27 | PDOC.HOSPP ---
- Subjective Encounter Date: 10/05/19 Encounter Time: 09:00 Subjective: more awake and responds well to verbal stimuli is eating his breakfast son at bedside there is no blood in collecting bag this am no sob, has dry cough - Objective Vital Signs & Weight: Vital Signs (12 hours) Temp Pulse Resp BP BP BP Pulse Ox 10/05/19 11:42 98.3 F 60 20 107/53 L 95 10/05/19 10:02 120/56 L 124/58 L 10/05/19 07:46 99.6 F 64 18 113/56 L 96 10/05/19 04:00 98.4 F 73 20 110/53 L 95 Weight Weight 211 lb I&O: 10/04/19 10/05/19 10/06/19 06:59 06:59 06:59 Intake Total 3540 Output Total 2625 650 Balance 915 -650 Result Diagrams: 10/05/19 04:06 10/05/19 04:06 Hospitalist ROS - Medication Medications: Active Medications Generic Name Dose Route Start Last Admin Trade Name Freq PRN Reason Stop Dose Admin Acetaminophen 650 mg 10/04/19 10:57 10/05/19 09:30 Tylenol PO 650 mg Q4H PRN Administration Headache/Fever/Mild Pain (1-3) Cyanocobalamin 1,000 mcg 10/05/19 09:00 10/05/19 09:30 Vitamin B-12 PO 1,000 mcg DAILY TOO Administration Famotidine 20 mg 10/05/19 09:00 10/05/19 09:30 Pepcid PO 20 mg DAILY TOO Administration Finasteride 5 mg 10/04/19 21:00 10/04/19 20:03 Proscar PO 5 mg QPM TOO Administration Folic Acid 1 mg 10/05/19 09:00 10/05/19 09:30 Folvite PO 1 mg DAILY TOO Administration Cefepime HCl 1 gm/ Sodium 100 mls @ 200 mls/hr 10/04/19 21:00 10/05/19 09:29 Chloride IVPB 100 mls Q12HR TOO Administration Sodium Chloride 1,000 mls @ 100 mls/hr 10/04/19 10:57 10/05/19 09:41 Normal Saline 0.9% IV 1,000 mls .Q10H TOO Administration Vancomycin HCl 1 gm/ Device 200 mls @ 200 mls/hr 10/05/19 10:00 10/05/19 11: 49 IVPB 200 mls 1000 TOO Administration Metoprolol Tartrate 25 mg 10/04/19 21:00 10/05/19 09:30 Lopressor PO 25 mg BID TOO Administration Saccharomyces Hamletdii 250 mg 10/05/19 09:00 10/05/19 09:30 Florastor PO 250 mg DAILY TOO Administration Simvastatin 10 mg 10/04/19 21:00 10/04/19 20:03 Zocor PO 10 mg QPM TOO Administration Sodium Chloride 10 ml 10/04/19 18:10 10/04/19 20:04 Flush - Normal Saline IVF 10 ml PRN PRN Administration Saline Flush Tamsulosin HCl 0.4 mg 10/04/19 21:00 10/05/19 09:30 Flomax PO 0.4 mg BID TOO Administration - Exam General Appearance: awake alert Eye: PERRL, anicteric sclera ENT: no oropharyngeal lesions, moist mucosa Neck: supple, no JVD Heart: RRR, no gallops Respiratory: no wheezes, no rales, rhonchi Gastrointestinal: soft, non-tender, non-distended, normal bowel sounds Gastrointestinal - other findings: gavin+ Extremities: no cyanosis, no edema Neurological: cranial nerve grossly intact, no focal deficits Hosp A/P (1) UTI (urinary tract infection) Status: Acute Qualifiers: Urinary tract infection type: acute cystitis Hematuria presence: with hematuria Qualified Code(s): N30.01 - Acute cystitis with hematuria (2) Sepsis Code(s): A41.9 - SEPSIS, UNSPECIFIED ORGANISM Status: Acute Qualifiers: Sepsis type: sepsis due to unspecified organism Sepsis acute organ dysfunction status: with acute organ dysfunction Severe sepsis acute organ dysfunction type: acute renal failure Acute renal failure type: unspecified Severe sepsis shock status: without septic shock Qualified Code(s): A41.9 - Sepsis, unspecified organism; R65.20 - Severe sepsis without septic shock; N17.9 - Acute kidney failure, unspecified (3) NICOLAS (acute kidney injury) Code(s): N17.9 - ACUTE KIDNEY FAILURE, UNSPECIFIED Status: Acute (4) Advanced age Code(s): R54 - AGE-RELATED PHYSICAL DEBILITY Status: Chronic (5) Dementia Code(s): F03.90 - UNSPECIFIED DEMENTIA WITHOUT BEHAVIORAL DISTURBANCE Status: Chronic Qualifiers: Dementia type: Alzheimer's disease Alzheimer's disease onset: unspecified onset Dementia behavioral disturbance: without behavioral disturbance Qualified Code(s): G30.9 - Alzheimer's disease, unspecified; F02.80 - Dementia in other diseases classified elsewhere without behavioral disturbance (6) Urine retention Code(s): R33.9 - RETENTION OF URINE, UNSPECIFIED Status: Acute (7) Anemia Code(s): D64.9 - ANEMIA, UNSPECIFIED Status: Chronic Qualifiers: Anemia type: unspecified type (8) BPH (benign prostatic hyperplasia) Code(s): N40.0 - BENIGN PROSTATIC HYPERPLASIA WITHOUT LOWER URINRY TRACT SYMP Status: Chronic Qualifiers: Lower urinary tract symptom presence: symptoms present Lower urinary tract symptom detail: urinary retention Qualified Code(s): N40.1 - Benign prostatic hyperplasia with lower urinary tract symptoms; R33.8 - Other retention of urine (9) HLD (hyperlipidemia) Code(s): E78.5 - HYPERLIPIDEMIA, UNSPECIFIED Status: Chronic Qualifiers: Hyperlipidemia type: unspecified Qualified Code(s): E78.5 - Hyperlipidemia , unspecified (10) Hypertension Code(s): I10 - ESSENTIAL (PRIMARY) HYPERTENSION Status: Chronic Qualifiers: Hypertension type: essential hypertension Qualified Code(s): I10 - Essential (primary) hypertension (11) Rhabdomyolysis Code(s): M62.82 - RHABDOMYOLYSIS Status: Acute Qualifiers: Encounter type: subsequent encounter - Plan await culture results, prelim is -ve continue iv hydration for rhabdomyolysis renal function is holding up, renal consultation on cefepime, will dc vanc continue lopressor, proscar, flomax, zocor d/w son at bedside, will tx to med floor hematuria sec to large prostate, cbi is held as urine has cleared up appreciate help from He does not ambulate much but does help with transfers, PT david
[2019-10-05] MEDS: Finasteride 5 MG TAB PO SCH (20:36)
[2019-10-05] MEDS: Simvastatin 5 MG TAB PO SCH (20:36)
[2019-10-06] MEDS: Sodium Chloride 0.9% 1,000 ML IV SCH ×3 (05:18→18:34)
--- NOTE | 2019-10-06 06:46 | CON ---
DATE OF CONSULTATION: 10/05/2019 REASON FOR CONSULTATION: Sepsis. HISTORY OF PRESENT ILLNESS: An 89-year-old whom I had seen in September 2018 when he presented with a history of BPH, stage 3 CKD, prior total knee replacement at [facility], who developed a bacteremia secondary to obstructive uropathy associated with UTI due to Citrobacter. The patient was treated and now, he comes in because of worsening tachypnea, general malaise, and vomiting. The patient was transferred from [facility]. Apparently, he had been to [facility] and he was sent back to [facility], but then he was found on the floor, confused and lethargic. At this time, he was admitted. Initial findings included blood pressure 150/60, pulse 78, temperature 102.2, and O2 saturation 96% and there is a leukocytosis of 21,000 with a left shift, 36% bands. Creatinine was 1.5. Some elevation of AST and ALT and abnormal urinalysis. Influenza testing was negative. CT stone protocol showed enlarged prostate, bladder wall thickening. I spoke with the nurse at [facility] and it looks like he did not have a urinary catheter when he was there. He was in the assisted living facility and they do not admit patients with Rangel catheter there, so he was voiding on his own. PAST MEDICAL HISTORY: Hypertension, nephrolithiasis, osteoarthritis, BPH, dementia, and UTIs with bacteremia. PAST SURGICAL HISTORY: Pericardial window, testicular abscess, pacemaker, and ventral hernia. ALLERGIES: NONE. FAMILY HISTORY: COPD. SOCIAL HISTORY: . Used to smoke, but quit 10 to 12 years before. CURRENT MEDICATION LIST: 1. Cefepime. 2. Vitamin B12. 3. Pepcid. 4. Proscar. 5. Folvite. 6. Lopressor. 7. Zofran. 8. Florastor. 9. Senokot. 10. Zocor. 11. Flomax. 12. Ultram. 13. Vancomycin. PHYSICAL EXAMINATION: VITAL SIGNS: T-max 99.6, blood pressure 115/57, pulse 62, respirations 20, and O2 saturation 93% to 95%. SKIN: Shows a Rangel catheter in place. The patient has a peripheral IV access. No areas of skin breakdown. No lymphadenopathy. GENERAL: He is awake, but a bit drowsy. HEENT: His ocular movements are conjugate. He has some element of conjunctival hyperemia. His eyelids are absent. There is some element of blepharitis. Nasal passages are patent. Ear exam normal. Oral cavity with only a few remaining teeth in place. No jugular vein distention. LUNGS: A few inspiratory crackles in the left base. HEART: S1 and S2. Regular rate. Diminished heart sounds. Systolic aortic murmur 2/6. ABDOMEN: Soft. Not distended or tender. No ascites. No bladder distention. MUSCULOSKELETAL: Osteoarthrosis noted, hypomotility of extremities, but symmetry in movements. EXTREMITIES: Trace edema in lower extremities. Pulses 1+ in dorsalis pedis. Cap refill normal. Plantar responses are flexor. NEUROLOGIC: He is awake. He knows his name. He knew he was in the hospital, but could not tell me which. Speech is limited with very sluggish answers. Limited repertoire of words. Recall is very limited. LABORATORY DATA: White cell count started at 21.3 and now 13.3, hemoglobin 11, platelets 144 and 105, lymphocytes 16%. Sodium 134, creatinine 1.2. AST 222, ALT 168, alkaline phosphatase 53, bilirubin 0.8, albumin 3.3, and globulin 2.7. Urinalysis with greater than 50 wbc's. Microbiology as noted above. Imaging studies as noted above. ASSESSMENT: Cognitive dysfunction, BPH, prior episode of invasive urinary tract infection with Citrobacter at the beginning of last year and now recrudescence of likely urosepsis associated with severe BPH and obstruction of the outflow tract. Other possibilities would be thromboembolism, early pneumonia. No evidence of bone or joint infection. No evidence of other intraabdominal inflammatory process. Looks like we will have to go for the same steps that were carried out at the beginning of 2019 with broad-spectrum coverage, looking for pathogen to target from the cultures. Hopefully, we will get something from the urine culture tomorrow. If not, we will have to continue treating empirically. He did have some inspiratory crackles in the left side, and we will have to continue monitoring those in case the cultures remain negative to make sure that we are not missing a community- acquired pneumonia instead of the urosepsis. Voiding trial will have to be carried out. It looks like he was on Flomax and finasteride before admission. Thromboembolism is another concern, and we may have to evaluate his duplex ultrasound depending on clinical progress and results of cultures. Would he be a candidate for a Urolift procedure? May want to discuss with urologist in OP setting. Job ID: [id number] [email or web address]
[2019-10-06 07:15] LABS: Hemoglobin 9.3 g/dL (14.0-18.0); Mean Corpuscular HGB CONC 32.8 g/dL (32.0-36.0); Mean Corpuscular Hemoglobin 38.2 pg (27.0-31.0); Platelet Count 103 thou/uL (130-400); RBC Distribution Width 13.2 % (11.5-14.5); Red Blood Cell (RBC) Count 2.42 mill/uL (4.70-6.10); White Blood Cell (WBC) Count 6.8 thou/uL (4.8-10.8)
[2019-10-06 07:17] LABS: ALT (SGPT) 119 U/L (8-55); AST (SGOT) 160 U/L (5-34); Albumin 3.2 g/dL (3.4-4.8); Alkaline Phosphatase 56 U/L (40-110); Anion Gap 12 mmol/L (10-20); BUN (Urea Nitrogen) 20 mg/dL (8.4-25.7); Bilirubin, Total 0.6 mg/dL (0.2-1.2); Calc. Creatinine Clearance 68 mL/min (70-130); Calcium 7.7 mg/dL (7.8-10.44); Carbon Dioxide 18 mmol/L (23-31); Chloride 110 mmol/L (98-107); Estimated GFR-MDRD 71; Globulin 2.9 g/dL (2.4-3.5); Glucose 117 mg/dL (83-110); Potassium 3.8 mmol/L (3.5-5.1); Protein, Total 6.1 g/dL (5.8-8.1); Sodium 136 mmol/L (136-145)
[2019-10-06 07:24] LABS: Lymphocytes 13 % (21-51); MDiff Complete? YES; Monocytes 23 % (0-10); Neutrophil 64 % (42-75); Ovalocytes SLIGHT = 2-5 cells (100X) (0-1/hpf); Platelet Morphology Comment Appears Decreased; Polychromasia SLIGHT = 2-3 cells (100X) (0-2/hpf)
[2019-10-06] MEDS: Cefepime 1 GM in Sodium Chloride 0.9% 100 ML IVPB SCH ×2 (08:43→19:53)
[2019-10-06] MEDS: Folic Acid 1 MG TAB PO SCH (08:43)
[2019-10-06] MEDS: Cyanocobalamin (Vitamin B-12) 1,000 MCG TAB PO SCH (08:44)
[2019-10-06] MEDS: Metoprolol Tartrate 25 MG TAB PO SCH ×2 (08:44→19:53)
[2019-10-06] MEDS: Famotidine 20 MG TAB PO SCH (08:44)
[2019-10-06] MEDS: Saccharomyces boulardii 250 MG CAP PO SCH (08:44)
[2019-10-06] MEDS: Tamsulosin HCl 0.4 MG CAP PO SCH ×2 (08:44→19:53)
[2019-10-06 09:35] LABS: Vancomycin, Trough 6.1 ug/mL
--- NOTE | 2019-10-06 09:52 | PDOC.HOSPP ---
- Subjective Encounter Date: 10/06/19 Encounter Time: 08:30 Subjective: eating his breakfast, no sob says he slept well gavin collecting bag has clear urine - Objective Vital Signs & Weight: Vital Signs (12 hours) Temp Pulse Resp BP Pulse Ox 10/06/19 07:15 98 F 64 17 127/57 L 94 L 10/05/19 23:42 97.7 F Weight Weight 211 lb I&O: 10/05/19 10/06/19 10/07/19 06:59 06:59 06:59 Intake Total 3540 2185 Output Total 2625 2175 Balance 915 10 Result Diagrams: 10/06/19 06:40 10/06/19 06:40 Hospitalist ROS - Medication Medications: Active Medications Generic Name Dose Route Start Last Admin Trade Name Freq PRN Reason Stop Dose Admin Acetaminophen 650 mg 10/04/19 10:57 10/05/19 20:37 Tylenol PO 650 mg Q4H PRN Administration Headache/Fever/Mild Pain (1-3) Cyanocobalamin 1,000 mcg 10/05/19 09:00 10/06/19 08:44 Vitamin B-12 PO 1,000 mcg DAILY TOO Administration Famotidine 20 mg 10/05/19 09:00 10/06/19 08:44 Pepcid PO 20 mg DAILY TOO Administration Finasteride 5 mg 10/04/19 21:00 10/05/19 20:36 Proscar PO 5 mg QPM TOO Administration Folic Acid 1 mg 10/05/19 09:00 10/06/19 08:43 Folvite PO 1 mg DAILY TOO Administration Cefepime HCl 1 gm/ Sodium 100 mls @ 200 mls/hr 10/04/19 21:00 10/06/19 08:43 Chloride IVPB 100 mls Q12HR TOO Administration Sodium Chloride 1,000 mls @ 100 mls/hr 10/04/19 10:57 10/06/19 08:43 Normal Saline 0.9% IV 1,000 mls .Q10H TOO Administration Vancomycin HCl 1 gm/ Device 200 mls @ 200 mls/hr 10/05/19 10:00 10/05/19 11: 49 IVPB 200 mls 1000 TOO Administration Metoprolol Tartrate 25 mg 10/04/19 21:00 10/06/19 08:44 Lopressor PO 25 mg BID TOO Administration Saccharomyces Boulardii 250 mg 10/05/19 09:00 10/06/19 08:44 Florastor PO 250 mg DAILY TOO Administration Simvastatin 10 mg 10/04/19 21:00 10/05/19 20:36 Zocor PO 10 mg QPM TOO Administration Sodium Chloride 10 ml 10/04/19 18:10 10/04/19 20:04 Flush - Normal Saline IVF 10 ml PRN PRN Administration Saline Flush Tamsulosin HCl 0.4 mg 10/04/19 21:00 10/06/19 08:44 Flomax PO 0.4 mg BID TOO Administration - Exam General Appearance: awake alert Eye: PERRL, anicteric sclera ENT: no oropharyngeal lesions, moist mucosa Neck: supple, no JVD Heart: RRR, no murmur Respiratory: no wheezes, no rales Gastrointestinal: soft, non-tender, non-distended, normal bowel sounds Extremities: no cyanosis, no edema Neurological: cranial nerve grossly intact, no focal deficits Hosp A/P (1) UTI (urinary tract infection) Status: Acute Qualifiers: Urinary tract infection type: acute cystitis Hematuria presence: with hematuria Qualified Code(s): N30.01 - Acute cystitis with hematuria (2) Sepsis Code(s): A41.9 - SEPSIS, UNSPECIFIED ORGANISM Status: Acute Qualifiers: Sepsis type: sepsis due to unspecified organism Sepsis acute organ dysfunction status: with acute organ dysfunction Severe sepsis acute organ dysfunction type: acute renal failure Acute renal failure type: unspecified Severe sepsis shock status: without septic shock Qualified Code(s): A41.9 - Sepsis, unspecified organism; R65.20 - Severe sepsis without septic shock; N17.9 - Acute kidney failure, unspecified (3) NICOLAS (acute kidney injury) Code(s): N17.9 - ACUTE KIDNEY FAILURE, UNSPECIFIED Status: Resolved (4) Advanced age Code(s): R54 - AGE-RELATED PHYSICAL DEBILITY Status: Chronic (5) Dementia Code(s): F03.90 - UNSPECIFIED DEMENTIA WITHOUT BEHAVIORAL DISTURBANCE Status: Chronic Qualifiers: Dementia type: Alzheimer's disease Alzheimer's disease onset: unspecified onset Dementia behavioral disturbance: without behavioral disturbance Qualified Code(s): G30.9 - Alzheimer's disease, unspecified; F02.80 - Dementia in other diseases classified elsewhere without behavioral disturbance (6) Urine retention Code(s): R33.9 - RETENTION OF URINE, UNSPECIFIED Status: Acute (7) Anemia Code(s): D64.9 - ANEMIA, UNSPECIFIED Status: Chronic Qualifiers: Anemia type: unspecified type (8) BPH (benign prostatic hyperplasia) Code(s): N40.0 - BENIGN PROSTATIC HYPERPLASIA WITHOUT LOWER URINRY TRACT SYMP Status: Chronic Qualifiers: Lower urinary tract symptom presence: symptoms present Lower urinary tract symptom detail: urinary retention Qualified Code(s): N40.1 - Benign prostatic hyperplasia with lower urinary tract symptoms; R33.8 - Other retention of urine (9) HLD (hyperlipidemia) Code(s): E78.5 - HYPERLIPIDEMIA, UNSPECIFIED Status: Chronic Qualifiers: Hyperlipidemia type: unspecified Qualified Code(s): E78.5 - Hyperlipidemia , unspecified (10) Hypertension Code(s): I10 - ESSENTIAL (PRIMARY) HYPERTENSION Status: Chronic Qualifiers: Hypertension type: essential hypertension Qualified Code(s): I10 - Essential (primary) hypertension (11) Rhabdomyolysis Code(s): M62.82 - RHABDOMYOLYSIS Status: Acute Qualifiers: Encounter type: subsequent encounter - Plan await culture results, so far are -ve including urine. continue iv hydration for rhabdomyolysis, ck levels today and in am. renal function is normal this am. on cefepime, will dc vanc continue lopressor, proscar, flomax, zocor hematuria sec to large prostate, cbi is held as urine has cleared up appreciate help from He does not ambulate much but does help with transfers, PT david
--- NOTE | 2019-10-06 10:58 | RAD ---
PORTABLE CHEST: HISTORY: Possible aspiration. COMPARISON: 10/04/2019 exam. Heart size appears borderline with a pacemaker in place. There is some bibasilar predominantly inter stitial lung changes which are felt to be similar to the previous study. Given the differences in th e technique, the pulmonary vessels appear slightly less engorged on this exam. IMPRESSION: Cardiomegaly with some interstitial changes in both lung bases. The degree of pulmonary vascular eng orgement is diminished as compared to the 10/04/2019 study. POS: NATHAN
--- NOTE | 2019-10-06 16:00 | PRG ---
DATE OF SERVICE: 10/06/2019 SUBJECTIVE: Complaining about being abandoned here in the hospital, feeling like he is cripple and so on so forth. Does not have shortness of breath. No abdominal pain. No diarrhea. OBJECTIVE: VITAL SIGNS: He had a T-max of 102 on October 05, blood pressure 120/50, pulse 64, and now O2 saturation 94%. HEENT: A little bit of periorbital edema. Some blepharitis. Oral cavity is moist. LUNGS: Symmetric air entry with no crackles or wheezing. HEART: S1 and S2. Regular rate. ABDOMEN: Soft without tenderness. Rangel catheter in place. LABORATORY DATA: White cell count is down to 6.8, hemoglobin 9.3, platelets 103,000 with 64% neutrophils, bands are reduced. Creatinine 0.99. AST 160, ALT 119, CK 6000 which is improved. Microbiology with negative blood cultures and urine culture no growth 48 hours. IMAGING: Chest x-ray from October 06 with cardiomegaly, some interstitial changes, improved pulmonary engorgement. ASSESSMENT AND DISCUSSION: Cognitive dysfunction, BPH, prior episode of invasive urinary tract infection associated with obstruction secondary to Citrobacter beginning last year, now recrudescence of urosepsis with the same process. Cultures all negative, but he seems to be improving, he had one spike in the temperature, but I think this is going to be a transient event not to be repeated. I do not see Lovenox here prescribed. He is on SCDs only. Previous bacteria were Citrobacter amalonaticus susceptible to quinolones. Cultures remain negative. I would advise eventual transition to oral quinolone for discharge planning and treat for protracted period of time for least [address] Ramirez's note from yesterday was reviewed and she recommended continuing indwelling Rangel catheter. If hematuria resumes, then CBI to be initiated. This has not happened yet. I do not think he is going to be a candidate for any other intervention. The family has declined diversion at this point in time. He is not a candidate for UroLift. Job ID: [id number]
[2019-10-06] MEDS: Guaifenesin DM 100-10/5 ML UDCUP PO PRN (16:46)
[2019-10-06] MEDS: Finasteride 5 MG TAB PO SCH (19:52)
[2019-10-06] MEDS: Simvastatin 5 MG TAB PO SCH (19:52)
[2019-10-06] MEDS: Acetaminophen 325 MG TAB PO PRN (22:14)
[2019-10-07 06:42] LABS: Band 1 % (5-11); Eosinophils 1 % (0-10); Hemoglobin 9.1 g/dL (14.0-18.0); Lymphocytes 22 % (21-51); MDiff Complete? YES; Mean Corpuscular HGB CONC 34.5 g/dL (32.0-36.0); Mean Corpuscular Hemoglobin 40.2 pg (27.0-31.0); Mean Platelet Volume 9.9 fL (7.4-10.4); Metamyelocyte 3 % (0-0); Monocytes 20 % (0-10); Myelocyte 1 % (0-0); Neutrophil 52 % (42-75); Platelet Count 99 thou/uL (130-400); Platelet Morphology Comment Appears Decreased; Red Blood Cell (RBC) Count 2.27 mill/uL (4.70-6.10); White Blood Cell (WBC) Count 6.9 thou/uL (4.8-10.8)
[2019-10-07 06:49] LABS: ALT (SGPT) 88 U/L (8-55); AST (SGOT) 100 U/L (5-34); Albumin 3.2 g/dL (3.4-4.8); Alkaline Phosphatase 53 U/L (40-110); Anion Gap 10 mmol/L (10-20); BUN (Urea Nitrogen) 16 mg/dL (8.4-25.7); Bilirubin, Total 0.8 mg/dL (0.2-1.2); CK (CPK) 3001 U/L (30-200); Calc. Creatinine Clearance 81 mL/min (70-130); Calcium 7.7 mg/dL (7.8-10.44); Carbon Dioxide 20 mmol/L (23-31); Chloride 110 mmol/L (98-107); Estimated GFR-MDRD 86; Glucose 110 mg/dL (83-110); Potassium 3.8 mmol/L (3.5-5.1); Protein, Total 6.2 g/dL (5.8-8.1); Sodium 136 mmol/L (136-145)
[2019-10-07] MEDS: Metoprolol Tartrate 25 MG TAB PO SCH ×2 (09:15→21:40)
[2019-10-07] MEDS: Saccharomyces boulardii 250 MG CAP PO SCH (09:15)
[2019-10-07] MEDS: Folic Acid 1 MG TAB PO SCH (09:15)
[2019-10-07] MEDS: Famotidine 20 MG TAB PO SCH (09:15)
[2019-10-07] MEDS: Tamsulosin HCl 0.4 MG CAP PO SCH ×2 (09:15→21:40)
[2019-10-07] MEDS: Cyanocobalamin (Vitamin B-12) 1,000 MCG TAB PO SCH (09:15)
[2019-10-07] MEDS: Cefepime 1 GM in Sodium Chloride 0.9% 100 ML IVPB SCH ×2 (09:15→21:40)
[2019-10-07] MEDS: Senokot S 8.6-50 MG TAB PO PRN (10:52)
--- NOTE | 2019-10-07 11:41 | PDOC.HOSPP ---
- Subjective Encounter Date: 10/07/19 Encounter Time: 09:00 Subjective: awake, is eating breakfast, a bit confused (he wants to know why his son is not in the room) - Objective Vital Signs & Weight: Vital Signs (12 hours) Temp Pulse Resp BP Pulse Ox 10/07/19 08:00 93 L 10/07/19 07:51 98.2 F 66 17 156/64 H 93 L 10/07/19 04:00 98.1 F 65 18 118/53 L 93 L 10/06/19 23:57 99.2 F 60 18 121/54 L 92 L Weight Weight 211 lb I&O: 10/06/19 10/07/19 10/08/19 06:59 06:59 06:59 Intake Total 2185 Output Total 2175 Balance 10 Result Diagrams: 10/07/19 06:10 10/07/19 06:10 Hospitalist ROS - Medication Medications: Active Medications Generic Name Dose Route Start Last Admin Trade Name Freq PRN Reason Stop Dose Admin Acetaminophen 650 mg 10/04/19 10:57 10/06/19 22:14 Tylenol PO 650 mg Q4H PRN Administration Headache/Fever/Mild Pain (1-3) Cyanocobalamin 1,000 mcg 10/05/19 09:00 10/07/19 09:15 Vitamin B-12 PO 1,000 mcg DAILY TOO Administration Famotidine 20 mg 10/05/19 09:00 10/07/19 09:15 Pepcid PO 20 mg DAILY TOO Administration Finasteride 5 mg 10/04/19 21:00 10/06/19 19:52 Proscar PO 5 mg QPM TOO Administration Folic Acid 1 mg 10/05/19 09:00 10/07/19 09:15 Folvite PO 1 mg DAILY TOO Administration Guaifenesin/Dextromethorphan 15 ml 10/04/19 10:57 10/06/19 16:46 Robitussin Dm PO 15 ml Q4H PRN Administration Cough Cefepime HCl 1 gm/ Sodium 100 mls @ 200 mls/hr 10/04/19 21:00 10/07/19 09:15 Chloride IVPB 100 mls Q12HR TOO Administration Metoprolol Tartrate 25 mg 10/04/19 21:00 10/07/19 09:15 Lopressor PO 25 mg BID TOO Administration Saccharomyces Boulardii 250 mg 10/05/19 09:00 10/07/19 09:15 Florastor PO 250 mg DAILY TOO Administration Senna/Docusate Sodium 2 tab 10/04/19 10:57 10/07/19 10:52 Senokot S PO 2 tab BIDPRN PRN Administration Constipation Simvastatin 10 mg 10/04/19 21:00 10/06/19 19:52 Zocor PO 10 mg QPM TOO Administration Sodium Chloride 10 ml 10/04/19 18:10 10/04/19 20:04 Flush - Normal Saline IVF 10 ml PRN PRN Administration Saline Flush Tamsulosin HCl 0.4 mg 10/04/19 21:00 10/07/19 09:15 Flomax PO 0.4 mg BID TOO Administration Tramadol HCl 50 mg 10/04/19 10:57 10/06/19 22:14 Ultram PO 50 mg QIDPRN PRN Administration MODERATE PAIN/DISCOMFORT - Exam General Appearance: awake alert Eye: PERRL, anicteric sclera ENT: no oropharyngeal lesions, moist mucosa Neck: supple, no JVD Heart: RRR, no murmur Respiratory: no wheezes, no rales, rhonchi Gastrointestinal: soft, non-tender, non-distended, normal bowel sounds Extremities: no cyanosis, 1+ LE edema Neurological: cranial nerve grossly intact, no focal deficits Hosp A/P (1) UTI (urinary tract infection) Status: Acute Qualifiers: Urinary tract infection type: acute cystitis Hematuria presence: with hematuria Qualified Code(s): N30.01 - Acute cystitis with hematuria (2) Sepsis Code(s): A41.9 - SEPSIS, UNSPECIFIED ORGANISM Status: Acute Qualifiers: Sepsis type: sepsis due to unspecified organism Sepsis acute organ dysfunction status: with acute organ dysfunction Severe sepsis acute organ dysfunction type: acute renal failure Acute renal failure type: unspecified Severe sepsis shock status: without septic shock Qualified Code(s): A41.9 - Sepsis, unspecified organism; R65.20 - Severe sepsis without septic shock; N17.9 - Acute kidney failure, unspecified (3) NICOLAS (acute kidney injury) Code(s): N17.9 - ACUTE KIDNEY FAILURE, UNSPECIFIED Status: Resolved (4) Advanced age Code(s): R54 - AGE-RELATED PHYSICAL DEBILITY Status: Chronic (5) Dementia Code(s): F03.90 - UNSPECIFIED DEMENTIA WITHOUT BEHAVIORAL DISTURBANCE Status: Chronic Qualifiers: Dementia type: Alzheimer's disease Alzheimer's disease onset: unspecified onset Dementia behavioral disturbance: without behavioral disturbance Qualified Code(s): G30.9 - Alzheimer's disease, unspecified; F02.80 - Dementia in other diseases classified elsewhere without behavioral disturbance (6) Urine retention Code(s): R33.9 - RETENTION OF URINE, UNSPECIFIED Status: Acute (7) Anemia Code(s): D64.9 - ANEMIA, UNSPECIFIED Status: Chronic Qualifiers: Anemia type: unspecified type (8) BPH (benign prostatic hyperplasia) Code(s): N40.0 - BENIGN PROSTATIC HYPERPLASIA WITHOUT LOWER URINRY TRACT SYMP Status: Chronic Qualifiers: Lower urinary tract symptom presence: symptoms present Lower urinary tract symptom detail: urinary retention Qualified Code(s): N40.1 - Benign prostatic hyperplasia with lower urinary tract symptoms; R33.8 - Other retention of urine (9) HLD (hyperlipidemia) Code(s): E78.5 - HYPERLIPIDEMIA, UNSPECIFIED Status: Chronic Qualifiers: Hyperlipidemia type: unspecified Qualified Code(s): E78.5 - Hyperlipidemia , unspecified (10) Hypertension Code(s): I10 - ESSENTIAL (PRIMARY) HYPERTENSION Status: Chronic Qualifiers: Hypertension type: essential hypertension Qualified Code(s): I10 - Essential (primary) hypertension (11) Rhabdomyolysis Code(s): M62.82 - RHABDOMYOLYSIS Status: Acute Qualifiers: Encounter type: subsequent encounter - Plan culture results so far are -ve including urine. continue iv hydration for rhabdomyolysis, ck levels down to 3k from 17k on admission. renal function is normal this am. on cefepime, switch to quinolones on dc. continue lopressor, proscar, flomax, zocor hematuria sec to large prostate, has gavin cath, await urology opinion if he has to go with gavin or will it be removed has risk of him pulling it out. appreciate help from He does not ambulate much but does help with transfers, PT david
[2019-10-07] MEDS ORDERED: Sodium Chloride 0.9% 1,000 ML IV SCH (11:45)
[2019-10-07] MEDS: Sodium Chloride 0.9% 1,000 ML IV SCH (12:48)
[2019-10-07] MEDS: Finasteride 5 MG TAB PO SCH (21:40)
[2019-10-07] MEDS: Simvastatin 5 MG TAB PO SCH (21:40)
[2019-10-07] MEDS: Enoxaparin Sodium 40 MG/0.4 ML SYRINGE SC SCH (21:40)
[2019-10-08] MEDS ORDERED: Lorazepam 2 MG/ML VIAL SLOW IVP SCH (02:00)
[2019-10-08 05:57] LABS: Band 7 % (5-11); Hypochromia SLIGHT = 6-15 cells (100X) (0-5/hpf); Lymphocytes 13 % (21-51); MDiff Complete? YES; Macrocytosis SLIGHT = 6-15 cells (100X) (0-5/hpf); Mean Corpuscular HGB CONC 34.2 g/dL (32.0-36.0); Mean Corpuscular Hemoglobin 39.3 pg (27.0-31.0); Monocytes 12 % (0-10); Neutrophil 68 % (42-75); Platelet Count 112 thou/uL (130-400); Platelet Morphology Comment Appears Decreased; RBC Distribution Width 13.1 % (11.5-14.5); Red Blood Cell (RBC) Count 2.29 mill/uL (4.70-6.10); White Blood Cell (WBC) Count 6.7 thou/uL (4.8-10.8)
[2019-10-08 06:02] LABS: ALT (SGPT) 68 U/L (8-55); AST (SGOT) 70 U/L (5-34); Albumin 3.1 g/dL (3.4-4.8); Alkaline Phosphatase 51 U/L (40-110); Anion Gap 10 mmol/L (10-20); BUN (Urea Nitrogen) 14 mg/dL (8.4-25.7); Bilirubin, Total 0.7 mg/dL (0.2-1.2); Calc. Creatinine Clearance 83 mL/min (70-130); Calcium 7.9 mg/dL (7.8-10.44); Carbon Dioxide 18 mmol/L (23-31); Chloride 109 mmol/L (98-107); Estimated GFR-MDRD 88; Globulin 2.9 g/dL (2.4-3.5); Glucose 132 mg/dL (83-110); Potassium 3.9 mmol/L (3.5-5.1); Sodium 133 mmol/L (136-145)
--- NOTE | 2019-10-08 07:54 | PRG ---
DATE OF SERVICE: 10/08/2019 SUBJECTIVE: The patient is confused, baseline state, oriented x1 to 2. Chart reviewed, no significant hematuria over the weekend since CBI was held. Urine output is clear yellow. OBJECTIVE: VITAL SIGNS: Stable. He has been afebrile for more than 48 hours. Temperature 98.5, pulse 66, respiratory rate 24, oxygen saturation 95, and blood pressure 156/65. ABDOMEN: Morbidly obese. Large ventral hernia. No suprapubic tenderness. No CVA tenderness appreciated. LABORATORY DATA: White count decreased to 6, hemoglobin stable. Creatinine 0.8. Blood culture and urine culture negative. Infectious Disease consult appreciated. IMPRESSION AND PLAN: Mr. 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 His baseline PVR is 2 to 300 mL, which the patient/power of contracts attorney, his son has elected to observe with full understanding re : increased risk of renal insufficiency and recurrent UTI. Power of contracts attorney has declined any surgical intervention, which is reasonable given his advanced age. Moreover, due to his massively enlarged prostate, he will require staged transurethral resection of the prostate versus suprapubic prostatectomy, latter of which is invasive procedure. He is not a candidate for UroLift due to his large prostate volume. UroLift is elected and reserved for patients with prostate volume less than 80 g. This patient is not a candidate for UroLift. Voiding trial today, if his PVR is an acceptable baseline range, will continue to monitor as he is a poor candidate to be discharged with indwelling urethral Rangel catheter as he has multiple attempts of traumatic catheter removal with his mental status confusion. Son has declined suprapubic tube urinary diversion. Continue broad-spectrum antibiotic per Infectious Disease. will monitor his PVR. Catheter removed at bedside. Job ID: [id number] [facility]
[2019-10-08] MEDS: Saccharomyces boulardii 250 MG CAP PO SCH (08:42)
[2019-10-08] MEDS: Tamsulosin HCl 0.4 MG CAP PO SCH ×2 (08:42→21:19)
[2019-10-08] MEDS: Cyanocobalamin (Vitamin B-12) 1,000 MCG TAB PO SCH (08:42)
[2019-10-08] MEDS: Famotidine 20 MG TAB PO SCH (08:42)
[2019-10-08] MEDS: Folic Acid 1 MG TAB PO SCH (08:42)
[2019-10-08] MEDS: Metoprolol Tartrate 25 MG TAB PO SCH ×2 (08:43→21:20)
[2019-10-08] MEDS: Cefepime 1 GM in Sodium Chloride 0.9% 100 ML IVPB SCH ×2 (08:43→21:19)
[2019-10-08] MEDS: Guaifenesin DM 100-10/5 ML UDCUP PO PRN (13:10)
[2019-10-08] MEDS ORDERED: Furosemide 20 MG/2 ML VIAL SLOW IVP SCH (17:00)
--- NOTE | 2019-10-08 18:32 | PRG ---
DATE OF SERVICE: 10/08/2019 SUBJECTIVE: Yuli is feeling well. They are trying to figure out disposition here. He is a bit confused. He denies any shortness of breath or chest pain. No abdominal pain. OBJECTIVE: VITAL SIGNS: He has been afebrile, blood pressure 150/60, pulse 60, O2 saturation 97% on room air. LUNGS: Symmetric air entry. HEART: S1 and S2. Regular rate. ABDOMEN: Soft, not distended. LABORATORY DATA: White cell count is at 6.7, hemoglobin 9, platelets 112 with 68% neutrophils. Sodium 133, creatinine 0.82. AST is down to 70, ALT 68. Microbiology with negative blood and urine culture 48 hours. ASSESSMENT AND DISCUSSION: Cognitive dysfunction, benign prostatic hypertrophy, invasive urinary tract infection recurrence, negative cultures with steady improvement in inflammatory process. PLAN: Plan is to treat him with quinolone to complete 4 weeks of therapy. Job ID: [id number]
--- NOTE | 2019-10-08 18:32 | PDOC.HOSPP ---
- Subjective Encounter Date: 10/08/19 Encounter Time: 18:30 Subjective: Mr. Roldan was seen today in follow-up of UTI with sepsis. He notes some dyspnea, and generalized weakness. - Objective Vital Signs & Weight: Vital Signs (12 hours) Temp Pulse Resp BP BP Pulse Ox 10/08/19 16:00 98.8 F 60 20 156/61 H 97 10/08/19 12:54 98.4 F 60 22 H 125/56 L 94 L 10/08/19 09:00 93 L 10/08/19 08:27 98.1 F 66 20 118/56 L 93 L Weight Weight 211 lb I&O: 10/07/19 10/08/19 10/09/19 06:59 06:59 06:59 Intake Total 1250 400 Output Total 1020 1100 Balance 230 -700 Result Diagrams: 10/08/19 05:11 10/08/19 05:11 Hospitalist ROS - Medication Medications: Active Medications Generic Name Dose Route Start Last Admin Trade Name Freq PRN Reason Stop Dose Admin Acetaminophen 650 mg 10/04/19 10:57 10/06/19 22:14 Tylenol PO 650 mg Q4H PRN Administration Headache/Fever/Mild Pain (1-3) Bisacodyl 10 mg 10/04/19 10:57 10/07/19 15:24 Dulcolax [place] 10 mg DAILYPRN PRN Administration Constipation Cyanocobalamin 1,000 mcg 10/05/19 09:00 10/08/19 08:42 Vitamin B-12 PO 1,000 mcg DAILY TOO Administration Enoxaparin Sodium 40 mg 10/07/19 21:00 10/07/19 21:40 Lovenox SC Not Given 2100 TOO Famotidine 20 mg 10/05/19 09:00 10/08/19 08:42 Pepcid PO 20 mg DAILY TOO Administration Finasteride 5 mg 10/04/19 21:00 10/07/19 21:40 Proscar PO 5 mg QPM TOO Administration Folic Acid 1 mg 10/05/19 09:00 10/08/19 08:42 Folvite PO 1 mg DAILY TOO Administration Furosemide 20 mg 10/08/19 17:00 10/08/19 17:59 Lasix SLOW IVP 10/08/19 19:00 20 mg NOW TOO Administration Guaifenesin/Dextromethorphan 15 ml 10/04/19 10:57 10/08/19 13:10 Robitussin Dm PO 15 ml Q4H PRN Administration Cough Cefepime HCl 1 gm/ Sodium 100 mls @ 200 mls/hr 10/04/19 21:00 10/08/19 08:43 Chloride IVPB 100 mls Q12HR TOO Administration Metoprolol Tartrate 25 mg 10/04/19 21:00 10/08/19 08:43 Lopressor PO 25 mg BID TOO Administration Saccharomyces Boulardii 250 mg 10/05/19 09:00 10/08/19 08:42 Florastor PO 250 mg DAILY TOO Administration Senna/Docusate Sodium 2 tab 10/04/19 10:57 10/07/19 10:52 Senokot S PO 2 tab BIDPRN PRN Administration Constipation Simvastatin 10 mg 10/04/19 21:00 10/07/19 21:40 Zocor PO 10 mg QPM TOO Administration Sodium Chloride 10 ml 10/04/19 18:10 10/08/19 18:00 Flush - Normal Saline IVF 10 ml PRN PRN Administration Saline Flush Tamsulosin HCl 0.4 mg 10/04/19 21:00 10/08/19 08:42 Flomax PO 0.4 mg BID TOO Administration - Exam Eye: PERRL Heart: RRR, no murmur, no gallops, no rubs, normal peripheral pulses Respiratory: CTAB (+ coarse breath sounds bilaterally), no wheezes, no rales Gastrointestinal: soft, non-tender, non-distended, normal bowel sounds, no palpable masses, no hepatomegaly Extremities: no cyanosis Hosp A/P (1) UTI (urinary tract infection) Status: Acute Qualifiers: Urinary tract infection type: acute cystitis Hematuria presence: with hematuria Qualified Code(s): N30.01 - Acute cystitis with hematuria (2) Rhabdomyolysis Code(s): M62.82 - RHABDOMYOLYSIS Status: Acute Qualifiers: Encounter type: subsequent encounter (3) Dementia Code(s): F03.90 - UNSPECIFIED DEMENTIA WITHOUT BEHAVIORAL DISTURBANCE Status: Chronic Qualifiers: Dementia type: Alzheimer's disease Alzheimer's disease onset: unspecified onset Dementia behavioral disturbance: without behavioral disturbance Qualified Code(s): G30.9 - Alzheimer's disease, unspecified; F02.80 - Dementia in other diseases classified elsewhere without behavioral disturbance (4) Sepsis Code(s): A41.9 - SEPSIS, UNSPECIFIED ORGANISM Status: Acute Qualifiers: Sepsis type: sepsis due to unspecified organism Sepsis acute organ dysfunction status: with acute organ dysfunction Severe sepsis acute organ dysfunction type: acute renal failure Acute renal failure type: unspecified Severe sepsis shock status: without septic shock Qualified Code(s): A41.9 - Sepsis, unspecified organism; R65.20 - Severe sepsis without septic shock; N17.9 - Acute kidney failure, unspecified (5) BPH (benign prostatic hyperplasia) Code(s): N40.0 - BENIGN PROSTATIC HYPERPLASIA WITHOUT LOWER URINRY TRACT SYMP Status: Chronic Qualifiers: Lower urinary tract symptom presence: symptoms present Lower urinary tract symptom detail: urinary retention Qualified Code(s): N40.1 - Benign prostatic hyperplasia with lower urinary tract symptoms; R33.8 - Other retention of urine (6) Hypertension Code(s): I10 - ESSENTIAL (PRIMARY) HYPERTENSION Status: Chronic Qualifiers: Hypertension type: essential hypertension Qualified Code(s): I10 - Essential (primary) hypertension (7) Chronic diastolic heart failure Code(s): I50.32 - CHRONIC DIASTOLIC (CONGESTIVE) HEART FAILURE Status: Chronic - Plan * UTI with sepsis- Cultures are negative- Treatment and antibiotic choice based on prior urine culture which grew Citrobacter.- continue Cefipime as recommended by Dr. Benavidez, and can transition to an oral quinolone for 4 weeks therapy at the time of discharge * Evere BPH with urinary retention- Urology input noted- will leave the Rangel out and monitor cloely for elevated post void residual * HTN- blood pressure is a bit elevated- will monitor * Rhabdomyolysis- improving * Chronic diastolic heart failure- compensated- will re-start his Lasix to avoid volume overload
[2019-10-08] MEDS: Simvastatin 5 MG TAB PO SCH (21:19)
[2019-10-08] MEDS: Finasteride 5 MG TAB PO SCH (21:20)
[2019-10-09 06:11] LABS: ALT (SGPT) 59 U/L (8-55); AST (SGOT) 58 U/L (5-34); Albumin 3.1 g/dL (3.4-4.8); Alkaline Phosphatase 48 U/L (40-110); Anion Gap 12 mmol/L (10-20); BUN (Urea Nitrogen) 13 mg/dL (8.4-25.7); Bilirubin, Total 0.8 mg/dL (0.2-1.2); Calc. Creatinine Clearance 84 mL/min (70-130); Calcium 8.6 mg/dL (7.8-10.44); Carbon Dioxide 19 mmol/L (23-31); Chloride 109 mmol/L (98-107); Estimated GFR-MDRD 90; Globulin 2.9 g/dL (2.4-3.5); Glucose 106 mg/dL (83-110); Potassium 3.8 mmol/L (3.5-5.1); Sodium 136 mmol/L (136-145)
[2019-10-09 06:14] LABS: Hemoglobin 8.9 g/dL (14.0-18.0); Mean Corpuscular HGB CONC 34.9 g/dL (32.0-36.0); Mean Corpuscular Hemoglobin 40.2 pg (27.0-31.0); Mean Platelet Volume 9.7 fL (7.4-10.4); Platelet Count 127 thou/uL (130-400); RBC Distribution Width 13.1 % (11.5-14.5); Red Blood Cell (RBC) Count 2.22 mill/uL (4.70-6.10)
[2019-10-09 06:35] LABS: Band 2 % (5-11); Lymphocytes 39 % (21-51); MDiff Complete? YES; Metamyelocyte 6 % (0-0); Monocytes 15 % (0-10); Myelocyte 3 % (0-0); Neutrophil 35 % (42-75); Platelet Morphology Comment Appears Adequate
--- NOTE | 2019-10-09 08:03 | PRG ---
DATE OF SERVICE: 10/09/2019 SUBJECTIVE: The patient is alert, awake, and oriented x1-2. Vital signs are stable. He is afebrile. I's and O's 1230 in and 2000 out. PVR urethral void documentation reviewed. Urethral void variable from 2 to 375, the patient's bladder scan variable from 337, 370, 359, largest 416, in which he was catheterized this morning for 400 mL of postvoid residual uneventfully. Some hematuria component at the beginning of catheterization per nursing staff, however, urine output has been clear. OBJECTIVE: ABDOMEN: Soft, nontender, nondistended, large ventral hernia as previous. No suprapubic tenderness appreciated. : Uncircumcised. Meatus is grossly unremarkable. No blood at the meatus. LABORATORY STUDIES: White count 6, hemoglobin 8.9, and platelet 127. Creatinine 0.8. All cultures are negative thus far. He is currently on IV cefepime and will transition to Levaquin for 4 weeks per Infectious Disease. IMPRESSION AND PLAN: Mr. Roldan is an 89-year-old male with history of massively enlarged prostate, chronic incomplete emptying, managed with Flomax b.i.d. and Proscar. As previous, no change in disposition. Son and the patient declined any invasive procedure, as such urethral indwelling chronic, CIC, suprapubic tube had been discussed. He is a poor candidate for chronic indwelling urethral Rangel catheter due to previous history of recurrent traumatic Rangel catheter removal. Although risk of suprapubic tube remains for traumatic removal as well, this is much less complicated than urethral Rangel catheter being traumatically removed. As such, I had encouraged the son previously to consider suprapubic tube, which he declined. He continues to retain urine, his baseline PVR is 2-300 mL, which we are watching conservatively. will monitor his PVR trend while in-house. His disposition is pending. Long-term disposition at an assisted living facilit ill-advised if he needs to be transition to CIC/PRN. However, son previously desired to transfer the patient in an assisted living. It appears that he had agreed to be transitioned on this admission for his father to be in a assisted. Will need to discuss with Primary Care regarding final disposition, as he most likely will require facility that can check postvoid residuals and clean intermittent catheterization if needed. Continue BPH medications. Case management following, please evaluate for facility that has CIC capacity. HOLD Lovenox as patient is being catheterized intermittently. Had pink-tinged hematuria, which I will observe. Job ID: [id number] MTDD
[2019-10-09] MEDS: Metoprolol Tartrate 25 MG TAB PO SCH ×2 (09:08→20:28)
[2019-10-09] MEDS: Cyanocobalamin (Vitamin B-12) 1,000 MCG TAB PO SCH (09:08)
[2019-10-09] MEDS: Famotidine 20 MG TAB PO SCH (09:08)
[2019-10-09] MEDS: Tamsulosin HCl 0.4 MG CAP PO SCH ×2 (09:08→20:29)
[2019-10-09] MEDS: Saccharomyces boulardii 250 MG CAP PO SCH (09:08)
[2019-10-09] MEDS: Folic Acid 1 MG TAB PO SCH (09:08)
[2019-10-09] MEDS: Cefepime 1 GM in Sodium Chloride 0.9% 100 ML IVPB SCH ×2 (09:09→20:31)
[2019-10-09] MEDS: Furosemide 40 MG TAB PO SCH (11:42)
--- NOTE | 2019-10-09 16:09 | PDOC.HOSPP ---
- Subjective Encounter Date: 10/09/19 Encounter Time: 16:07 Subjective: Mr. Roldan was seen today in follow-up of UTI with sepsis. He says he feels a little better. He does not have any new complaints. - Objective Vital Signs & Weight: Vital Signs (12 hours) Temp Pulse Resp BP Pulse Ox 10/09/19 09:19 96 10/09/19 08:00 97.6 F 61 17 154/55 H 96 Weight Weight 211 lb I&O: 10/08/19 10/09/19 10/10/19 06:59 06:59 06:59 Intake Total 1250 1230 Output Total 1020 1999 Balance 230 -770 Result Diagrams: 10/09/19 05:24 10/09/19 05:24 Additional Labs: Accuchecks 10/08/19 19:48 POC Glucose 155 H Hospitalist ROS - Medication Medications: Active Medications Generic Name Dose Route Start Last Admin Trade Name Freq PRN Reason Stop Dose Admin Acetaminophen 650 mg 10/04/19 10:57 10/06/19 22:14 Tylenol PO 650 mg Q4H PRN Administration Headache/Fever/Mild Pain (1-3) Bisacodyl 10 mg 10/04/19 10:57 10/07/19 15:24 Dulcolax [place] 10 mg DAILYPRN PRN Administration Constipation Cyanocobalamin 1,000 mcg 10/05/19 09:00 10/09/19 09:08 Vitamin B-12 PO 1,000 mcg DAILY TOO Administration Enoxaparin Sodium 40 mg 10/07/19 21:00 10/07/19 21:40 Lovenox SC Not Given 2100 [facility] Famotidine 20 mg 10/05/19 09:00 10/09/19 09:08 Pepcid PO 20 mg DAILY TOO Administration Finasteride 5 mg 10/04/19 21:00 10/08/19 21:20 Proscar PO 5 mg QPM TOO Administration Folic Acid 1 mg 10/05/19 09:00 10/09/19 09:08 Folvite PO 1 mg DAILY TOO Administration Furosemide 40 mg 10/09/19 12:00 10/09/19 11:42 Lasix PO 40 mg 1200 TOO Administration Guaifenesin/Dextromethorphan 15 ml 10/04/19 10:57 10/08/19 13:10 Robitussin Dm PO 15 ml Q4H PRN Administration Cough Cefepime HCl 1 gm/ Sodium 100 mls @ 200 mls/hr 10/04/19 21:00 10/09/19 09:09 Chloride IVPB 100 mls Q12HR TOO Administration Metoprolol Tartrate 25 mg 10/04/19 21:00 10/09/19 09:08 Lopressor PO 25 mg BID TOO Administration Saccharomyces Boulardii 250 mg 10/05/19 09:00 10/09/19 09:08 Florastor PO 250 mg DAILY TOO Administration Senna/Docusate Sodium 2 tab 10/04/19 10:57 10/07/19 10:52 Senokot S PO 2 tab BIDPRN PRN Administration Constipation Simvastatin 10 mg 10/04/19 21:00 10/08/19 21:19 Zocor PO 10 mg QPM TOO Administration Sodium Chloride 10 ml 10/04/19 18:10 10/09/19 09:13 Flush - Normal Saline IVF 10 ml PRN PRN Administration Saline Flush Tamsulosin HCl 0.4 mg 10/04/19 21:00 10/09/19 09:08 Flomax PO 0.4 mg BID TOO Administration - Exam Eye: PERRL Neck: supple Heart: RRR, no murmur, no gallops, no rubs, normal peripheral pulses Respiratory: CTAB, no wheezes, no rales, no ronchi, normal chest expansion Gastrointestinal: soft (+ large ventral hernia), non-tender, non-distended, normal bowel sounds, no palpable masses Extremities: no cyanosis Hosp A/P (1) UTI (urinary tract infection) Status: Acute Qualifiers: Urinary tract infection type: acute cystitis Hematuria presence: with hematuria Qualified Code(s): N30.01 - Acute cystitis with hematuria (2) Rhabdomyolysis Code(s): M62.82 - RHABDOMYOLYSIS Status: Acute Qualifiers: Encounter type: subsequent encounter (3) Dementia Code(s): F03.90 - UNSPECIFIED DEMENTIA WITHOUT BEHAVIORAL DISTURBANCE Status: Chronic Qualifiers: Dementia type: Alzheimer's disease Alzheimer's disease onset: unspecified onset Dementia behavioral disturbance: without behavioral disturbance Qualified Code(s): G30.9 - Alzheimer's disease, unspecified; F02.80 - Dementia in other diseases classified elsewhere without behavioral disturbance (4) Sepsis Code(s): A41.9 - SEPSIS, UNSPECIFIED ORGANISM Status: Acute Qualifiers: Sepsis type: sepsis due to unspecified organism Sepsis acute organ dysfunction status: with acute organ dysfunction Severe sepsis acute organ dysfunction type: acute renal failure Acute renal failure type: unspecified Severe sepsis shock status: without septic shock Qualified Code(s): A41.9 - Sepsis, unspecified organism; R65.20 - Severe sepsis without septic shock; N17.9 - Acute kidney failure, unspecified (5) BPH (benign prostatic hyperplasia) Code(s): N40.0 - BENIGN PROSTATIC HYPERPLASIA WITHOUT LOWER URINRY TRACT SYMP Status: Chronic Qualifiers: Lower urinary tract symptom presence: symptoms present Lower urinary tract symptom detail: urinary retention Qualified Code(s): N40.1 - Benign prostatic hyperplasia with lower urinary tract symptoms; R33.8 - Other retention of urine (6) Hypertension Code(s): I10 - ESSENTIAL (PRIMARY) HYPERTENSION Status: Chronic Qualifiers: Hypertension type: essential hypertension Qualified Code(s): I10 - Essential (primary) hypertension (7) Chronic diastolic heart failure Code(s): I50.32 - CHRONIC DIASTOLIC (CONGESTIVE) HEART FAILURE Status: Chronic - Plan * UTI with sepsis- Cultures are negative- Continue Cefepime, and will transition to Cipro * Severe BPH- continue to monitor his post void residual- and CIC when necessary * HTN- blood pressure is a bit elevated- will monitor * Rhabdomyolysis-resolved * Chronic diastolic heart failure- stable
[2019-10-09] MEDS: Spironolactone 25 MG TAB PO SCH (20:28)
[2019-10-09] MEDS: Simvastatin 5 MG TAB PO SCH (20:28)
[2019-10-09] MEDS: Finasteride 5 MG TAB PO SCH (20:28)
[2019-10-10 06:07] LABS: ALT (SGPT) 55 U/L (8-55); AST (SGOT) 64 U/L (5-34); Albumin 3.1 g/dL (3.4-4.8); Alkaline Phosphatase 49 U/L (40-110); Anion Gap 15 mmol/L (10-20); BUN (Urea Nitrogen) 15 mg/dL (8.4-25.7); Bilirubin, Total 0.7 mg/dL (0.2-1.2); Calc. Creatinine Clearance 76 mL/min (70-130); Calcium 8.8 mg/dL (7.8-10.44); Carbon Dioxide 19 mmol/L (23-31); Chloride 107 mmol/L (98-107); Estimated GFR-MDRD 80; Globulin 3.6 g/dL (2.4-3.5); Glucose 106 mg/dL (83-110); Potassium 4.8 mmol/L (3.5-5.1); Protein, Total 6.7 g/dL (5.8-8.1); Sodium 136 mmol/L (136-145)
[2019-10-10 06:50] LABS: Hemoglobin 9.1 g/dL (14.0-18.0); Mean Corpuscular HGB CONC 35.4 g/dL (32.0-36.0); Mean Corpuscular Hemoglobin 40.1 pg (27.0-31.0); Mean Platelet Volume 9.3 fL (7.4-10.4); Platelet Count 162 thou/uL (130-400); RBC Distribution Width 12.9 % (11.5-14.5); Red Blood Cell (RBC) Count 2.28 mill/uL (4.70-6.10); White Blood Cell (WBC) Count 5.9 thou/uL (4.8-10.8)
[2019-10-10 07:47] LABS: Band 12 % (5-11); Lymphocytes 32 % (21-51); MDiff Complete? YES; Macrocytosis SLIGHT = 6-15 cells (100X) (0-5/hpf); Metamyelocyte 4 % (0-0); Monocytes 11 % (0-10); Myelocyte 9 % (0-0); Neutrophil 32 % (42-75); Platelet Morphology Comment Appears Adequate; Polychromasia SLIGHT = 2-3 cells (100X) (0-2/hpf)
--- NOTE | 2019-10-10 07:51 | PRG ---
DATE OF SERVICE: 10/10/2019 SUBJECTIVE: The patient is alert, sitter at bedside, oriented x1. OBJECTIVE: VITAL SIGNS: Stable. He is afebrile. I's and O's; 1310 in, 1700 out. He is negative 400 mL. ABDOMEN: Large ventral hernia, nontender. No suprapubic tenderness. LABORATORY DATA: White count 5, hemoglobin 9.1, and platelet 162. Renal function stable with creatinine 0.89. Blood culture and urine culture negative. Previous Citrobacter sensitivity on cefepime. IMPRESSION AND PLAN: Mr. Roldan is an 89-year-old male with history of massively enlarged prostate with recurrent urinary tract infection. He is managed with Flomax b.i.d. and Proscar. His baseline postvoid residual out of the hospital in office is around 200 to 300 mL. We have been monitoring his voiding status. Although, he is voiding in 300 to 400 mL increments per urethral void, he required CIC x2 due to PVR of 520, 725. Most of his PVR has been in the mid 300s. He is tolerating CIC in-house. However, there is occasional hematuria, therefore Lovenox is discontinued. I will need to conference with his son. Concern regarding transitioning to a [facility] subsequently an assisted living as he will likely require some sort of bladder drainage. The patient has dementia, has pulled out his urethral Rangel catheter multiple times, therefore urethral Rangel catheter is poorly advised as there is significant trauma if Rangel catheter is removed atraumatically through massively enlarged prostate. Although, suprapubic tube is a concern for traumatic removal as well. This is much less morbid than a traumatic catheter from the urethra. It is a difficult social situation, as family has declined suprapubic tube, urinary diversion, I will need to really address with his son. Options unfortunately are to clinically observe the fact that he is in retention with full understanding regarding recurrent sepsis, urinary tract infection, hematuria, which his son previously had understood and desired to accept the possibility and observe. I will need to readdress this with the son prior to disposition. Continue IV antibiotic therapy. Monitor PVR CIC protocol in chart. Lovenox discontinued due to intermittent hematuria with catheterization. [facility] [id number] [facility]
[2019-10-10] MEDS: Famotidine 20 MG TAB PO SCH (09:21)
[2019-10-10] MEDS: Cefepime 1 GM in Sodium Chloride 0.9% 100 ML IVPB SCH ×2 (09:21→20:07)
[2019-10-10] MEDS: Saccharomyces boulardii 250 MG CAP PO SCH (09:22)
[2019-10-10] MEDS: Folic Acid 1 MG TAB PO SCH (09:22)
[2019-10-10] MEDS: Tamsulosin HCl 0.4 MG CAP PO SCH ×2 (09:22→20:08)
[2019-10-10] MEDS: Metoprolol Tartrate 25 MG TAB PO SCH ×2 (09:22→20:08)
[2019-10-10] MEDS: Cyanocobalamin (Vitamin B-12) 1,000 MCG TAB PO SCH (09:22)
[2019-10-10] MEDS: Furosemide 40 MG TAB PO SCH (11:48)
--- NOTE | 2019-10-10 16:32 | PDOC.HOSPP ---
- Subjective Encounter Date: 10/10/19 Encounter Time: 16:29 Subjective: Mr. Roldan was seen today in follow-up of UTI with sepsis. He says he feels fine today, no new complaints. - Objective Vital Signs & Weight: Vital Signs (12 hours) Temp Pulse Resp BP Pulse Ox 10/10/19 12:02 97.6 F 60 20 158/65 H 92 L 10/10/19 07:57 97.8 F 67 20 134/67 97 Weight Weight 211 lb I&O: 10/09/19 10/10/19 10/11/19 06:59 06:59 06:59 Intake Total 1230 1310 Output Total 1999 1710 Balance -770 -400 Result Diagrams: 10/10/19 06:17 10/10/19 05:21 Hospitalist ROS - Medication Medications: Active Medications Generic Name Dose Route Start Last Admin Trade Name Freq PRN Reason Stop Dose Admin Acetaminophen 650 mg 10/04/19 10:57 10/06/19 22:14 Tylenol PO 650 mg Q4H PRN Administration Headache/Fever/Mild Pain (1-3) Bisacodyl 10 mg 10/04/19 10:57 10/07/19 15:24 Dulcolax [place] 10 mg DAILYPRN PRN Administration Constipation Cyanocobalamin 1,000 mcg 10/05/19 09:00 10/10/19 09:22 Vitamin B-12 PO 1,000 mcg DAILY TOO Administration Enoxaparin Sodium 40 mg 10/07/19 21:00 10/07/19 21:40 Lovenox SC Not Given 2100 TOO Famotidine 20 mg 10/05/19 09:00 10/10/19 09:21 Pepcid PO 20 mg DAILY TOO Administration Finasteride 5 mg 10/04/19 21:00 10/09/19 20:28 Proscar PO 5 mg QPM TOO Administration Folic Acid 1 mg 10/05/19 09:00 10/10/19 09:22 Folvite PO 1 mg DAILY TOO Administration Furosemide 40 mg 10/09/19 12:00 10/10/19 11:48 Lasix PO 40 mg 1200 TOO Administration Guaifenesin/Dextromethorphan 15 ml 10/04/19 10:57 10/08/19 13:10 Robitussin Dm PO 15 ml Q4H PRN Administration Cough Cefepime HCl 1 gm/ Sodium 100 mls @ 200 mls/hr 10/04/19 21:00 10/10/19 09:21 Chloride IVPB 100 mls Q12HR TOO Administration Metoprolol Tartrate 25 mg 10/04/19 21:00 10/10/19 09:22 Lopressor PO 25 mg BID TOO Administration Saccharomyces Boulardii 250 mg 10/05/19 09:00 10/10/19 09:22 Florastor PO 250 mg DAILY TOO Administration Senna/Docusate Sodium 2 tab 10/04/19 10:57 10/07/19 10:52 Senokot S PO 2 tab BIDPRN PRN Administration Constipation Simvastatin 10 mg 10/04/19 21:00 10/09/19 20:28 Zocor PO 10 mg QPM TOO Administration Sodium Chloride 10 ml 10/04/19 18:10 10/10/19 09:21 Flush - Normal Saline IVF 10 ml PRN PRN Administration Saline Flush Spironolactone 25 mg 10/09/19 21:00 10/09/19 20:28 Aldactone PO 25 mg QPM TOO Administration Tamsulosin HCl 0.4 mg 10/04/19 21:00 10/10/19 09:22 Flomax PO 0.4 mg BID TOO Administration - Exam Eye: PERRL Heart: RRR, no murmur, no gallops, no rubs, normal peripheral pulses Respiratory: CTAB, no wheezes, no rales, no ronchi, normal chest expansion, no tachypnea, normal percussion Gastrointestinal: soft (+ large ventral hernia) Extremities: no cyanosis, no edema Hosp A/P (1) UTI (urinary tract infection) Status: Acute Qualifiers: Urinary tract infection type: acute cystitis Hematuria presence: with hematuria Qualified Code(s): N30.01 - Acute cystitis with hematuria (2) Rhabdomyolysis Code(s): M62.82 - RHABDOMYOLYSIS Status: Acute Qualifiers: Encounter type: subsequent encounter (3) Dementia Code(s): F03.90 - UNSPECIFIED DEMENTIA WITHOUT BEHAVIORAL DISTURBANCE Status: Chronic Qualifiers: Dementia type: Alzheimer's disease Alzheimer's disease onset: unspecified onset Dementia behavioral disturbance: without behavioral disturbance Qualified Code(s): G30.9 - Alzheimer's disease, unspecified; F02.80 - Dementia in other diseases classified elsewhere without behavioral disturbance (4) Sepsis Code(s): A41.9 - SEPSIS, UNSPECIFIED ORGANISM Status: Acute Qualifiers: Sepsis type: sepsis due to unspecified organism Sepsis acute organ dysfunction status: with acute organ dysfunction Severe sepsis acute organ dysfunction type: acute renal failure Acute renal failure type: unspecified Severe sepsis shock status: without septic shock Qualified Code(s): A41.9 - Sepsis, unspecified organism; R65.20 - Severe sepsis without septic shock; N17.9 - Acute kidney failure, unspecified (5) BPH (benign prostatic hyperplasia) Code(s): N40.0 - BENIGN PROSTATIC HYPERPLASIA WITHOUT LOWER URINRY TRACT SYMP Status: Chronic Qualifiers: Lower urinary tract symptom presence: symptoms present Lower urinary tract symptom detail: urinary retention Qualified Code(s): N40.1 - Benign prostatic hyperplasia with lower urinary tract symptoms; R33.8 - Other retention of urine (6) Hypertension Code(s): I10 - ESSENTIAL (PRIMARY) HYPERTENSION Status: Chronic Qualifiers: Hypertension type: essential hypertension Qualified Code(s): I10 - Essential (primary) hypertension (7) Chronic diastolic heart failure Code(s): I50.32 - CHRONIC DIASTOLIC (CONGESTIVE) HEART FAILURE Status: Chronic - Plan * UTI with sepsis- Cultures are negative- will transition to Cipro in the AM * Severe BPH- discussed with Dr. Ramirez and the patient's son. The patient "s son would like to continue to pursue snf/swing bed placement, without a suprapubic catheter. He states he understands the risks. * HTN- blood pressure is a bit better * Rhabdomyolysis-resolved * Chronic diastolic heart failure- stable- continue Lasix daily ( instead of twice a day) * Awaiting placement
[2019-10-10] MEDS: Enoxaparin Sodium 40 MG/0.4 ML SYRINGE SC SCH (20:06)
[2019-10-10] MEDS: Simvastatin 5 MG TAB PO SCH (20:08)
[2019-10-10] MEDS: Spironolactone 25 MG TAB PO SCH (20:08)
[2019-10-10] MEDS: Finasteride 5 MG TAB PO SCH (20:08)
[2019-10-11 06:07] LABS: ALT (SGPT) 49 U/L (8-55); AST (SGOT) 43 U/L (5-34); Albumin 3.4 g/dL (3.4-4.8); Alkaline Phosphatase 51 U/L (40-110); Anion Gap 12 mmol/L (10-20); BUN (Urea Nitrogen) 16 mg/dL (8.4-25.7); Bilirubin, Total 0.5 mg/dL (0.2-1.2); Calc. Creatinine Clearance 69 mL/min (70-130); Calcium 9.2 mg/dL (7.8-10.44); Carbon Dioxide 26 mmol/L (23-31); Chloride 104 mmol/L (98-107); Estimated GFR-MDRD 72; Globulin 3.1 g/dL (2.4-3.5); Glucose 104 mg/dL (83-110); Protein, Total 6.5 g/dL (5.8-8.1); Sodium 138 mmol/L (136-145)
[2019-10-11 06:13] LABS: Band 2 % (5-11); Hemoglobin 9.6 g/dL (14.0-18.0); Lymphocytes 35 % (21-51); MDiff Complete? YES; Mean Corpuscular HGB CONC 33.8 g/dL (32.0-36.0); Mean Corpuscular Hemoglobin 39.3 pg (27.0-31.0); Mean Platelet Volume 9.4 fL (7.4-10.4); Metamyelocyte 7 % (0-0); Monocytes 15 % (0-10); Myelocyte 3 % (0-0); Neutrophil 38 % (42-75); Platelet Count 206 thou/uL (130-400); Platelet Morphology Comment Appears Adequate; Red Blood Cell (RBC) Count 2.44 mill/uL (4.70-6.10)
--- NOTE | 2019-10-11 07:34 | PRG ---
DATE OF SERVICE: 10/11/2019 SUBJECTIVE: The patient is alert, cooperative to physical exam. Nursing staff at bedside. The patient is being catheterized as his PVR is 400 on bladder scan. OBJECTIVE: VITAL SIGNS: Stable. ABDOMEN: Morbidly obese. As previous, large ventral incisional hernia. No suprapubic tenderness. LABORATORY DATA: White count 6, hemoglobin 9.6, platelet 206. Creatinine 0.9. IMPRESSION AND PLAN: 1. Mr. Roldan is an 89-year-old male with past medical history of massively enlarged prostate, trilobar hyperplasia with chronic incomplete emptying. 2. 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 3. 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 The patient has been tolerating CIC in-house with nursing staff uneventfully. PVR REVIEW: Urethral void increments variable from 100 to 475. PVR: Variable from 200 to 300, largest CIC requiring 604, 515, 479. The patient continues to be diuresed due to heart issues. Long discussion yesterday with the patient's son with mental health case manager and hospitalist. I informed him that as previous urethral Rangel is not a good idea, as he had traumatic Rangel catheter removal in the past, as such, we discussed extensively regarding SP tube. The patient is a poor candidate. Moreover, son does not desire his father to undergo major surgery i.e., staged TURP or suprapubic prostatectomy, which I agree. I informed him that suprapubic tube is his best option, there is a risk of SP tube traumatically being removed, however , this is much less morbid than urethral Rangel catheter being removed. I expressed my concern regarding compliancy of CIC, in a nursing facility. As he has history of proximal penile urethral stricture, he is high risk for false passage, traumatic catheterization, and complicated UTI, and recurrent gross hematuria. In talking with the patient at bedside, he appears to be open to proceed with suprapubic tube, which contradicts what his son had told me yesterday. I left message with nursing staff to have son call my office, as I feel that suprapubic tube is the safest option for Mr. Roldan. Discussed case with hospitalist. Continue IV antibiotics and bladder rehab with CIC PVR checked while in-house. Continue to hold Lovenox as he has occasional hematuria with catheterization. Job ID: [id number] [facility]
[2019-10-11] MEDS: Tamsulosin HCl 0.4 MG CAP PO SCH ×2 (08:41→20:19)
[2019-10-11] MEDS: Metoprolol Tartrate 25 MG TAB PO SCH ×2 (08:41→20:19)
[2019-10-11] MEDS: Cyanocobalamin (Vitamin B-12) 1,000 MCG TAB PO SCH (08:42)
[2019-10-11] MEDS: Folic Acid 1 MG TAB PO SCH (08:42)
[2019-10-11] MEDS: Famotidine 20 MG TAB PO SCH (08:42)
[2019-10-11] MEDS: Saccharomyces boulardii 250 MG CAP PO SCH (08:42)
[2019-10-11] MEDS: Furosemide 40 MG TAB PO SCH (12:24)
--- NOTE | 2019-10-11 16:22 | PDOC.HOSPP ---
- Subjective Encounter Date: 10/11/19 Encounter Time: 16:20 Subjective: Ms. Roldan was seen today in follow-up of UTI and sepsis. He does not have any new complaints. - Objective Vital Signs & Weight: Vital Signs (12 hours) Temp Pulse Resp BP Pulse Ox 10/11/19 08:00 97.3 F L 62 20 123/55 L 95 Weight Weight 211 lb I&O: 10/10/19 10/11/19 10/12/19 06:59 06:59 06:59 Intake Total 1310 340 Output Total 2107 275 5010 Balance -400 -560 -1100 Result Diagrams: 10/11/19 05:12 10/11/19 05:12 Hospitalist ROS - Medication Medications: Active Medications Generic Name Dose Route Start Last Admin Trade Name Freq PRN Reason Stop Dose Admin Acetaminophen 650 mg 10/04/19 10:57 10/06/19 22:14 Tylenol PO 650 mg Q4H PRN Administration Headache/Fever/Mild Pain (1-3) Bisacodyl 10 mg 10/04/19 10:57 10/07/19 15:24 Dulcolax RI 10 mg DAILYPRN PRN Administration Constipation Cyanocobalamin 1,000 mcg 10/05/19 09:00 10/11/19 08:42 Vitamin B-12 PO 1,000 mcg DAILY TOO Administration Famotidine 20 mg 10/05/19 09:00 10/11/19 08:42 Pepcid PO 20 mg DAILY TOO Administration Finasteride 5 mg 10/04/19 21:00 10/10/19 20:08 Proscar PO 5 mg QPM TOO Administration Folic Acid 1 mg 10/05/19 09:00 10/11/19 08:42 Folvite PO 1 mg DAILY TOO Administration Furosemide 40 mg 10/09/19 12:00 10/11/19 12:24 Lasix PO 40 mg 1200 TOO Administration Guaifenesin/Dextromethorphan 15 ml 10/04/19 10:57 10/08/19 13:10 Robitussin Dm PO 15 ml Q4H PRN Administration Cough Metoprolol Tartrate 25 mg 10/04/19 21:00 10/11/19 08:41 Lopressor PO 25 mg BID TOO Administration Saccharomyces Boulardii 250 mg 10/05/19 09:00 10/11/19 08:42 Florastor PO 250 mg DAILY TOO Administration Senna/Docusate Sodium 2 tab 10/04/19 10:57 10/07/19 10:52 Senokot S PO 2 tab BIDPRN PRN Administration Constipation Simvastatin 10 mg 10/04/19 21:00 10/10/19 20:08 Zocor PO 10 mg QPM TOO Administration Sodium Chloride 10 ml 10/04/19 18:10 10/10/19 09:21 Flush - Normal Saline IVF 10 ml PRN PRN Administration Saline Flush Spironolactone 25 mg 10/09/19 21:00 10/10/19 20:08 Aldactone PO 25 mg QPM TOO Administration Tamsulosin HCl 0.4 mg 10/04/19 21:00 10/11/19 08:41 Flomax PO 0.4 mg BID TOO Administration - Exam Eye: PERRL Heart: RRR, no murmur, no gallops, no rubs, normal peripheral pulses Respiratory: CTAB, no wheezes, no rales, no ronchi, normal chest expansion Gastrointestinal: soft (+ large ventral hernia), normal bowel sounds, no palpable masses, no hepatomegaly, no splenomegaly Extremities: no cyanosis, no edema Hosp A/P (1) UTI (urinary tract infection) Status: Acute Qualifiers: Urinary tract infection type: acute cystitis Hematuria presence: with hematuria Qualified Code(s): N30.01 - Acute cystitis with hematuria (2) Rhabdomyolysis Code(s): M62.82 - RHABDOMYOLYSIS Status: Acute Qualifiers: Encounter type: subsequent encounter (3) Dementia Code(s): F03.90 - UNSPECIFIED DEMENTIA WITHOUT BEHAVIORAL DISTURBANCE Status: Chronic Qualifiers: Dementia type: Alzheimer's disease Alzheimer's disease onset: unspecified onset Dementia behavioral disturbance: without behavioral disturbance Qualified Code(s): G30.9 - Alzheimer's disease, unspecified; F02.80 - Dementia in other diseases classified elsewhere without behavioral disturbance (4) Sepsis Code(s): A41.9 - SEPSIS, UNSPECIFIED ORGANISM Status: Acute Qualifiers: Sepsis type: sepsis due to unspecified organism Sepsis acute organ dysfunction status: with acute organ dysfunction Severe sepsis acute organ dysfunction type: acute renal failure Acute renal failure type: unspecified Severe sepsis shock status: without septic shock Qualified Code(s): A41.9 - Sepsis, unspecified organism; R65.20 - Severe sepsis without septic shock; N17.9 - Acute kidney failure, unspecified (5) BPH (benign prostatic hyperplasia) Code(s): N40.0 - BENIGN PROSTATIC HYPERPLASIA WITHOUT LOWER URINRY TRACT SYMP Status: Chronic Qualifiers: Lower urinary tract symptom presence: symptoms present Lower urinary tract symptom detail: urinary retention Qualified Code(s): N40.1 - Benign prostatic hyperplasia with lower urinary tract symptoms; R33.8 - Other retention of urine (6) Hypertension Code(s): I10 - ESSENTIAL (PRIMARY) HYPERTENSION Status: Chronic Qualifiers: Hypertension type: essential hypertension Qualified Code(s): I10 - Essential (primary) hypertension (7) Chronic diastolic heart failure Code(s): I50.32 - CHRONIC DIASTOLIC (CONGESTIVE) HEART FAILURE Status: Chronic - Plan * UTI with sepsis- Cultures are negative- will transition to Cipro * Severe BPH- discussed with Dr. Ramirez - he spoke with the patient, and he is considering having the supra-pubic catheter placed * HTN- blood pressure is a bit better * Rhabdomyolysis-resolved * Chronic diastolic heart failure- stable- continue Lasix daily ( instead of twice a day) * Holding off on placement until he decides on suprapubic catheter
[2019-10-11] MEDS ORDERED: Cipro 250 MG TAB PO SCH (20:00)
[2019-10-11] MEDS: Ciprofloxacin 500 MG TAB PO SCH (20:18)
[2019-10-11] MEDS: Simvastatin 5 MG TAB PO SCH (20:19)
[2019-10-11] MEDS: Finasteride 5 MG TAB PO SCH (20:19)
[2019-10-11] MEDS: Spironolactone 25 MG TAB PO SCH (20:19)
[2019-10-11 23:13] LABS: Hemoglobin 9.5 g/dL (14.0-18.0)
[2019-10-12] MEDS: Ciprofloxacin 500 MG TAB PO SCH ×2 (05:20→20:32)
[2019-10-12 05:56] LABS: ALT (SGPT) 45 U/L (8-55); AST (SGOT) 40 U/L (5-34); Albumin 3.4 g/dL (3.4-4.8); Alkaline Phosphatase 50 U/L (40-110); Anion Gap 13 mmol/L (10-20); BUN (Urea Nitrogen) 20 mg/dL (8.4-25.7); Bilirubin, Total 0.4 mg/dL (0.2-1.2); Calc. Creatinine Clearance 67 mL/min (70-130); Calcium 9.6 mg/dL (7.8-10.44); Carbon Dioxide 26 mmol/L (23-31); Chloride 103 mmol/L (98-107); Estimated GFR-MDRD 70; Glucose 146 mg/dL (83-110); Potassium 4.1 mmol/L (3.5-5.1); Protein, Total 6.4 g/dL (5.8-8.1); Sodium 138 mmol/L (136-145)
[2019-10-12 06:44] LABS: Band 12 % (5-11); Hemoglobin 9.7 g/dL (14.0-18.0); Lymphocytes 39 % (21-51); MDiff Complete? YES; Mean Corpuscular HGB CONC 33.9 g/dL (32.0-36.0); Mean Corpuscular Hemoglobin 39.1 pg (27.0-31.0); Mean Platelet Volume 8.7 fL (7.4-10.4); Metamyelocyte 2 % (0-0); Monocytes 19 % (0-10); Myelocyte 3 % (0-0); Neutrophil 25 % (42-75); Platelet Count 224 thou/uL (130-400); Red Blood Cell (RBC) Count 2.47 mill/uL (4.70-6.10); White Blood Cell (WBC) Count 6.3 thou/uL (4.8-10.8)
--- NOTE | 2019-10-12 08:02 | PRG ---
DATE OF SERVICE: 10/12/2019 SUBJECTIVE: The patient is sleeping, son at bedside. OBJECTIVE: VITAL SIGNS: Stable. I's and O's, he is negative 1.9 L. Urine output 3550. Voiding diary reviewed. The patient voiding per urethra 200 to 300 mL increment, however, has had intermittent gross hematuria. PVR variable from 300 to 400. He needed catheterization for 625 mL. There is some sediment, hematuria with catheterizations over the last few events. ABDOMEN: Morbidly obese. Large ventral incisional hernia as previous. GENITOURINARY: Uncircumcised. Meatus is grossly unremarkable. No blood at the meatus. Bedside procedure, an 18-Micronesian three-way Rangel catheter placed, 20 mL of sterile water insufflated. It went in without any issues, initial urine is sediment, is tea colored at the terminal drainage. There is component of red hematuria with no clots. PERTINENT LABORATORY DATA: White count 6, hemoglobin 9.7, and platelet 224. Creatinine is stable at 1.0. All cultures negative. IMPRESSION: 1. Mr. Roldan is an 89-year-old male with history of benign prostatic hyperplasia, massively enlarged prostate, history of incomplete emptying. 2. History of urethral stricture. 3. Advanced age. 4. Deconditioned status. 5. History of recurrent urinary tract infection, urosepsis. 6. History of testicular abscess, status post orchidectomy secondary to severe urinary tract infection in the remote past. RECOMMENDATIONS: I did replace an 18-Micronesian three-way Rangel catheter as he has gross hematuria with intermittent catheterization. As his prostate is massively enlarged, I am not surprised that this is occurring as such I had extensively discussed with the patient's son previously and again this morning regarding urinary diversion with SP tube. He is at this point considering to proceed. However, the son will be out of area over the weekend, therefore I will monitor the patient with indwelling Rangel catheter until his return. Most likely, we will transition to an SP tube, in which Interventional Radiology will be consulted due to his abdominal habitus, morbid obesity, and a large ventral incisional hernia. Continue indwelling Rangel catheter. The patient requires a 24-hour sitter as he has history of traumatic Rangel catheter removal and states of confusion. We will start CBI if needed. Job ID: [id number]
[2019-10-12] MEDS: Famotidine 20 MG TAB PO SCH (08:52)
[2019-10-12] MEDS: Saccharomyces boulardii 250 MG CAP PO SCH (08:52)
[2019-10-12] MEDS: Senokot S 8.6-50 MG TAB PO PRN (08:52)
[2019-10-12] MEDS: Cyanocobalamin (Vitamin B-12) 1,000 MCG TAB PO SCH (08:52)
[2019-10-12] MEDS: Metoprolol Tartrate 25 MG TAB PO SCH ×2 (08:53→20:33)
[2019-10-12] MEDS: Tamsulosin HCl 0.4 MG CAP PO SCH ×2 (08:53→20:33)
[2019-10-12] MEDS: Folic Acid 1 MG TAB PO SCH (08:53)
[2019-10-12 11:14] LABS: Hemoglobin 9.5 g/dL (14.0-18.0)
[2019-10-12] MEDS: Furosemide 40 MG TAB PO SCH (12:32)
--- NOTE | 2019-10-12 15:26 | PDOC.HOSPP ---
- Subjective Encounter Date: 10/12/19 Encounter Time: 15:24 Subjective: Mr. Roldan was seen today in follow-up of UTI with sepsis. He does not have any complaints. The gavin catheter has been replaced. - Objective Vital Signs & Weight: Vital Signs (12 hours) Temp Pulse Resp BP Pulse Ox 10/12/19 08:00 97.3 F L 61 16 155/66 H 93 L Weight Weight 211 lb I&O: 10/11/19 10/12/19 10/13/19 06:59 06:59 06:59 Intake Total 340 1590 Output Total 900 3550 Balance -560 -1960 Result Diagrams: 10/12/19 10:46 10/12/19 05:16 Hospitalist ROS - Medication Medications: Active Medications Generic Name Dose Route Start Last Admin Trade Name Freq PRN Reason Stop Dose Admin Acetaminophen 650 mg 10/04/19 10:57 10/06/19 22:14 Tylenol PO 650 mg Q4H PRN Administration Headache/Fever/Mild Pain (1-3) Bisacodyl 10 mg 10/04/19 10:57 10/07/19 15:[address] 10 mg DAILYPRN PRN Administration Constipation Ciprofloxacin 500 mg 10/11/19 20:00 10/12/19 05:20 Cipro PO 500 mg 06,1999 TOO Administration Cyanocobalamin 1,000 mcg 10/05/19 09:00 10/12/19 08:52 Vitamin B-12 PO 1,000 mcg DAILY TOO Administration Famotidine 20 mg 10/05/19 09:00 10/12/19 08:52 Pepcid PO 20 mg DAILY TOO Administration Finasteride 5 mg 10/04/19 21:00 10/11/19 20:19 Proscar PO 5 mg QPM TOO Administration Folic Acid 1 mg 10/05/19 09:00 10/12/19 08:53 Folvite PO 1 mg DAILY TOO Administration Furosemide 40 mg 10/09/19 12:00 10/12/19 12:32 Lasix PO 40 mg 1200 TOO Administration Guaifenesin/Dextromethorphan 15 ml 10/04/19 10:57 10/08/19 13:10 Robitussin Dm PO 15 ml Q4H PRN Administration Cough Metoprolol Tartrate 25 mg 10/04/19 21:00 10/12/19 08:53 Lopressor PO 25 mg BID TOO Administration Saccharomyces Boulardii 250 mg 10/05/19 09:00 10/12/19 08:52 Florastor PO 250 mg DAILY TOO Administration Senna/Docusate Sodium 2 tab 10/04/19 10:57 10/12/19 08:52 Senokot S PO 2 tab BIDPRN PRN Administration Constipation Simvastatin 10 mg 10/04/19 21:00 10/11/19 20:19 Zocor PO 10 mg QPM TOO Administration Sodium Chloride 10 ml 10/04/19 18:10 10/10/19 09:21 Flush - Normal Saline IVF 10 ml PRN PRN Administration Saline Flush Spironolactone 25 mg 10/09/19 21:00 10/11/19 20:19 Aldactone PO 25 mg QPM TOO Administration Tamsulosin HCl 0.4 mg 10/04/19 21:00 10/12/19 08:53 Flomax PO 0.4 mg BID TOO Administration - Exam Eye: PERRL, anicteric sclera Heart: RRR, no murmur, no gallops, no rubs, normal peripheral pulses Respiratory: CTAB, no wheezes, no rales, no ronchi, normal chest expansion, no tachypnea Gastrointestinal: soft, normal bowel sounds, no palpable masses, no hepatomegaly (+ large ventral hernia) Extremities: no cyanosis, no clubbing, 1+ LE edema Hosp A/P (1) UTI (urinary tract infection) Status: Acute Qualifiers: Urinary tract infection type: acute cystitis Hematuria presence: with hematuria Qualified Code(s): N30.01 - Acute cystitis with hematuria (2) Rhabdomyolysis Code(s): M62.82 - RHABDOMYOLYSIS Status: Acute Qualifiers: Encounter type: subsequent encounter (3) Dementia Code(s): F03.90 - UNSPECIFIED DEMENTIA WITHOUT BEHAVIORAL DISTURBANCE Status: Chronic Qualifiers: Dementia type: Alzheimer's disease Alzheimer's disease onset: unspecified onset Dementia behavioral disturbance: without behavioral disturbance Qualified Code(s): G30.9 - Alzheimer's disease, unspecified; F02.80 - Dementia in other diseases classified elsewhere without behavioral disturbance (4) Sepsis Code(s): A41.9 - SEPSIS, UNSPECIFIED ORGANISM Status: Acute Qualifiers: Sepsis type: sepsis due to unspecified organism Sepsis acute organ dysfunction status: with acute organ dysfunction Severe sepsis acute organ dysfunction type: acute renal failure Acute renal failure type: unspecified Severe sepsis shock status: without septic shock Qualified Code(s): A41.9 - Sepsis, unspecified organism; R65.20 - Severe sepsis without septic shock; N17.9 - Acute kidney failure, unspecified (5) BPH (benign prostatic hyperplasia) Code(s): N40.0 - BENIGN PROSTATIC HYPERPLASIA WITHOUT LOWER URINRY TRACT SYMP Status: Chronic Qualifiers: Lower urinary tract symptom presence: symptoms present Lower urinary tract symptom detail: urinary retention Qualified Code(s): N40.1 - Benign prostatic hyperplasia with lower urinary tract symptoms; R33.8 - Other retention of urine (6) Hypertension Code(s): I10 - ESSENTIAL (PRIMARY) HYPERTENSION Status: Chronic Qualifiers: Hypertension type: essential hypertension Qualified Code(s): I10 - Essential (primary) hypertension (7) Chronic diastolic heart failure Code(s): I50.32 - CHRONIC DIASTOLIC (CONGESTIVE) HEART FAILURE Status: Chronic - Plan * UTI with sepsis- Cultures are negative- will transition to Cipro ( he will need a total of 4 weeks therapy) * Severe BPH- Gavin has been replaced , and plan is for Supra-pubic catheter placement early next week * HTN- continue the cuurent medications * Rhabdomyolysis-resolved * Chronic diastolic heart failure- stable- continue Lasix daily ( instead of twice a day)_
[2019-10-12] MEDS: Simvastatin 5 MG TAB PO SCH (20:32)
[2019-10-12] MEDS: Finasteride 5 MG TAB PO SCH (20:32)
[2019-10-12] MEDS: Spironolactone 25 MG TAB PO SCH (20:33)
[2019-10-13 06:02] LABS: ALT (SGPT) 41 U/L (8-55); AST (SGOT) 36 U/L (5-34); Albumin 3.5 g/dL (3.4-4.8); Alkaline Phosphatase 52 U/L (40-110); Anion Gap 15 mmol/L (10-20); BUN (Urea Nitrogen) 21 mg/dL (8.4-25.7); Bilirubin, Total 0.5 mg/dL (0.2-1.2); Calc. Creatinine Clearance 63 mL/min (70-130); Calcium 9.6 mg/dL (7.8-10.44); Carbon Dioxide 23 mmol/L (23-31); Chloride 102 mmol/L (98-107); Estimated GFR-MDRD 64; Globulin 3.1 g/dL (2.4-3.5); Glucose 136 mg/dL (83-110); Potassium 4.1 mmol/L (3.5-5.1); Protein, Total 6.6 g/dL (5.8-8.1); Sodium 136 mmol/L (136-145)
[2019-10-13 06:04] LABS: Hemoglobin 9.4 g/dL (14.0-18.0); Mean Corpuscular HGB CONC 33.8 g/dL (32.0-36.0); Mean Corpuscular Hemoglobin 39.5 pg (27.0-31.0); Mean Platelet Volume 8.5 fL (7.4-10.4); Platelet Count 232 thou/uL (130-400); RBC Distribution Width 13.2 % (11.5-14.5); Red Blood Cell (RBC) Count 2.38 mill/uL (4.70-6.10); White Blood Cell (WBC) Count 8.4 thou/uL (4.8-10.8)
[2019-10-13] MEDS: Ciprofloxacin 500 MG TAB PO SCH ×2 (06:08→20:03)
[2019-10-13 07:35] LABS: Band 10 % (5-11); Eosinophils 1 % (0-10); Lymphocytes 33 % (21-51); MDiff Complete? YES; Metamyelocyte 5 % (0-0); Monocytes 11 % (0-10); Myelocyte 1 % (0-0); Neutrophil 39 % (42-75)
[2019-10-13] MEDS: Saccharomyces boulardii 250 MG CAP PO SCH (09:36)
[2019-10-13] MEDS: Folic Acid 1 MG TAB PO SCH (09:36)
[2019-10-13] MEDS: Famotidine 20 MG TAB PO SCH (09:36)
[2019-10-13] MEDS: Metoprolol Tartrate 25 MG TAB PO SCH ×2 (09:36→20:03)
[2019-10-13] MEDS: Tamsulosin HCl 0.4 MG CAP PO SCH ×2 (09:36→20:03)
[2019-10-13] MEDS: Cyanocobalamin (Vitamin B-12) 1,000 MCG TAB PO SCH (09:37)
[2019-10-13 12:02] LABS: PTT 28.6 SEC (22.9-36.1); Prothrombin Time 13.4 SEC (12.0-14.7)
[2019-10-13] MEDS: Furosemide 40 MG TAB PO SCH (12:23)
--- NOTE | 2019-10-13 12:57 | PRG ---
DATE OF SERVICE: 10/13/2019 SUBJECTIVE: The patient is alert, oriented x1. OBJECTIVE: VITAL SIGNS: Stable. He is afebrile. Urine output 1900 mL of yellow urine. ABDOMEN: Morbidly obese. Large ventral hernia. No suprapubic tenderness. PERTINENT LABORATORY DATA: White count 8, hemoglobin 9.4, and platelet 232. Creatinine 1.0. Cultures negative. IMPRESSION AND PLAN: 1. Mr. 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 2. History of recurrent urinary tract infection. 3. History of left testicular abscess, status post orchiectomy due to urinary tract infection, complicated. 4. History of mild urethral stricture. RECOMMENDATIONS: Long discussion with son last evening, he agrees for his father to proceed with suprapubic tube, as he developed hematuria with CIC while in-house. As such, he agrees his father to proceed with suprapubic tube, which we have tentatively scheduled for Tuesday. No anticoagulation. We will check PT, PTT, and INR per Interventional Radiology request. Continue bedside sitter, the patient with history of traumatic Rangel catheter removal, multiple. High risk of recurrent urethral catheter removal remains of concern. Continue present management. Continue BPH medications. Job ID: [id number]
--- NOTE | 2019-10-13 15:14 | PDOC.HOSPP ---
- Subjective Encounter Date: 10/13/19 Encounter Time: 15:16 Subjective: Follow-up for Mr. Roldan, who is being evaluated for UTI with sepsis and urinary retention. Pt does not report new complaints and denies chest pain,abdominal pain, nausea and vomiting. Pt has had good appetite and is using a Rangel catheter. - Objective Vital Signs & Weight: Vital Signs (12 hours) Temp Pulse Resp BP Pulse Ox 10/13/19 08:00 98.1 F 60 18 127/74 94 L Weight Weight 211 lb I&O: 10/12/19 10/13/19 10/14/19 06:59 06:59 06:59 Intake Total 1590 850 320 Output Total 3550 1900 Balance -1960 -1050 320 Result Diagrams: 10/13/19 04:57 10/13/19 04:57 Hospitalist ROS - Review of Systems All other systems reviewed; all pertinent +/- noted in HPI/Subj - Medication Medications: Active Medications Generic Name Dose Route Start Last Admin Trade Name Freq PRN Reason Stop Dose Admin Acetaminophen 650 mg 10/04/19 10:57 10/06/19 22:14 Tylenol PO 650 mg Q4H PRN Administration Headache/Fever/Mild Pain (1-3) Bisacodyl 10 mg 10/04/19 10:57 10/07/19 15:24 Dulcolax ND 10 mg DAILYPRN PRN Administration Constipation Ciprofloxacin 500 mg 10/11/19 20:00 10/13/19 06:08 Cipro PO 500 mg 0600,2000 TOO Administration Cyanocobalamin 1,000 mcg 10/05/19 09:00 10/13/19 09:37 Vitamin B-12 PO 1,000 mcg DAILY TOO Administration Famotidine 20 mg 10/05/19 09:00 10/13/19 09:36 Pepcid PO 20 mg DAILY TOO Administration Finasteride 5 mg 10/04/19 21:00 10/12/19 20:32 Proscar PO 5 mg QPM TOO Administration Folic Acid 1 mg 10/05/19 09:00 10/13/19 09:36 Folvite PO 1 mg DAILY TOO Administration Furosemide 40 mg 10/09/19 12:00 10/13/19 12:23 Lasix PO 40 mg 1200 TOO Administration Guaifenesin/Dextromethorphan 15 ml 10/04/19 10:57 10/08/19 13:10 Robitussin Dm PO 15 ml Q4H PRN Administration Cough Metoprolol Tartrate 25 mg 10/04/19 21:00 10/13/19 09:36 Lopressor PO 25 mg BID TOO Administration Saccharomyces Boulardii 250 mg 10/05/19 09:00 10/13/19 09:36 Florastor PO 250 mg DAILY TOO Administration Senna/Docusate Sodium 2 tab 10/04/19 10:57 10/12/19 08:52 Senokot S PO 2 tab BIDPRN PRN Administration Constipation Simvastatin 10 mg 10/04/19 21:00 10/12/19 20:32 Zocor PO 10 mg QPM TOO Administration Sodium Chloride 10 ml 10/04/19 18:10 10/10/19 09:21 Flush - Normal Saline IVF 10 ml PRN PRN Administration Saline Flush Spironolactone 25 mg 10/09/19 21:00 10/12/19 20:33 Aldactone PO 25 mg QPM TOO Administration Tamsulosin HCl 0.4 mg 10/04/19 21:00 10/13/19 09:36 Flomax PO 0.4 mg BID TOO Administration - Exam General Appearance: awake alert Eye: PERRL ENT: normocephalic atraumatic Heart: RRR, no murmur, no gallops, no rubs Respiratory: CTAB Gastrointestinal: soft, normal bowel sounds, distended Gastrointestinal - other findings: Rangel catheter in place. Large abdominal hernia is present Extremities: no cyanosis, no clubbing, 1+ LE edema Skin: normal turgor, no lesions, no rashes Neurological: cranial nerve grossly intact, normal sensation to touch, no focal deficits, no new deficit Musculoskeletal: normal tone, normal strength, no muscle wasting Psychiatric: normal affect, normal behavior, A&O x 3, oriented to person Hosp A/P (1) Urine retention Code(s): R33.9 - RETENTION OF URINE, UNSPECIFIED Status: Acute (2) UTI (urinary tract infection) Status: Acute Qualifiers: Urinary tract infection type: acute cystitis Hematuria presence: with hematuria Qualified Code(s): N30.01 - Acute cystitis with hematuria (3) Chronic diastolic heart failure Code(s): I50.32 - CHRONIC DIASTOLIC (CONGESTIVE) HEART FAILURE Status: Chronic (4) Hypertension Code(s): I10 - ESSENTIAL (PRIMARY) HYPERTENSION Status: Chronic Qualifiers: Hypertension type: essential hypertension Qualified Code(s): I10 - Essential (primary) hypertension (5) Anemia Code(s): D64.9 - ANEMIA, UNSPECIFIED Status: Chronic Qualifiers: Anemia type: unspecified type Qualified Code(s): D64.9 - Anemia, unspecified - Plan * Sepsis secondary to UTI- Blood cultures are negative, WBC is within normal range, UA was suspicious for UTI but no growth was seen. ID was consulted and 4 week therapy of Cipro was recommended. * Urinary retention from BPH- perform SP catheter in the beginning of next week , when son is back in town to witness the procedure. Continue Flomax and Finasteride * CHF- stable, continue Lasix * Hypertension- stable, continue Metoprolol and Spironolactone * Fall prior to admission- continue with PT who recommended rehab * Anemia- at baseline Agree with students assesment and plan. Pt to continue cipro until 11/02. Per Dr. Ramirez plan is to do the suprapubic catheter on Tuesday, but not clear what time yet
--- NOTE | 2019-10-13 17:01 | EKG ---
Test Reason : Blood Pressure : / mmHG Vent. Rate : 077 BPM Atrial Rate : 078 BPM P-R Int : 000 ms QRS Dur : 144 ms QT Int : 450 ms P-R-T Axes : 000 -61 103 degrees QTc Int : 509 ms AV sequential or dual chamber electronic pacemaker Confirmed by NEGAR SHAIKH ([id number]), newspaper or periodical editor PEDRO TORRES ([id number]) on 10/13/2019 5:00:58 PM Referred By: Confirmed By:NEGAR SHAIKH
[2019-10-13] MEDS: Spironolactone 25 MG TAB PO SCH (20:03)
[2019-10-13] MEDS: Finasteride 5 MG TAB PO SCH (20:03)
[2019-10-13] MEDS: Simvastatin 5 MG TAB PO SCH (20:03)
[2019-10-14 05:21] LABS: ALT (SGPT) 35 U/L (8-55); AST (SGOT) 30 U/L (5-34); Albumin 3.5 g/dL (3.4-4.8); Alkaline Phosphatase 47 U/L (40-110); Anion Gap 14 mmol/L (10-20); BUN (Urea Nitrogen) 22 mg/dL (8.4-25.7); Bilirubin, Total 0.4 mg/dL (0.2-1.2); Calc. Creatinine Clearance 63 mL/min (70-130); Calcium 9.8 mg/dL (7.8-10.44); Carbon Dioxide 25 mmol/L (23-31); Chloride 104 mmol/L (98-107); Estimated GFR-MDRD 64; Globulin 3.1 g/dL (2.4-3.5); Glucose 111 mg/dL (83-110); Potassium 4.1 mmol/L (3.5-5.1); Protein, Total 6.6 g/dL (5.8-8.1); Sodium 139 mmol/L (136-145)
[2019-10-14 06:08] LABS: Hemoglobin 9.3 g/dL (14.0-18.0); Mean Corpuscular HGB CONC 33.7 g/dL (32.0-36.0); Mean Corpuscular Hemoglobin 39.3 pg (27.0-31.0); Mean Platelet Volume 8.2 fL (7.4-10.4); Platelet Count 226 thou/uL (130-400); Red Blood Cell (RBC) Count 2.36 mill/uL (4.70-6.10); White Blood Cell (WBC) Count 7.8 thou/uL (4.8-10.8)
[2019-10-14] MEDS: Ciprofloxacin 500 MG TAB PO SCH ×2 (06:23→19:36)
[2019-10-14 07:01] LABS: Band 11 % (5-11); Lymphocytes 40 % (21-51); MDiff Complete? YES; Monocytes 9 % (0-10); Neutrophil 40 % (42-75)
[2019-10-14] MEDS: Cyanocobalamin (Vitamin B-12) 1,000 MCG TAB PO SCH (08:06)
[2019-10-14] MEDS: Metoprolol Tartrate 25 MG TAB PO SCH ×2 (08:06→19:37)
[2019-10-14] MEDS: Tamsulosin HCl 0.4 MG CAP PO SCH ×2 (08:06→19:36)
[2019-10-14] MEDS: Saccharomyces boulardii 250 MG CAP PO SCH (08:06)
[2019-10-14] MEDS: Folic Acid 1 MG TAB PO SCH (08:06)
[2019-10-14] MEDS: Famotidine 20 MG TAB PO SCH (08:06)
--- NOTE | 2019-10-14 12:03 | PRG ---
DATE OF SERVICE: 10/14/2019 SUBJECTIVE: The patient without complaints. Sitter at bedside. OBJECTIVE: VITAL SIGNS: Stable. 97, 61, 18, 93, and 130/61. I's and O's, 2350 out. Urine output clear. ABDOMEN: As previous, large ventral hernia. Soft, nontender, and nondistended. Rangel catheter clear. LABORATORY DATA: Labs stable. White count 7, hemoglobin 9.3, and platelet 226. BMP profile with creatinine 1.0. IMPRESSION AND PLAN: 1. 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 2. History of recurrent urinary tract infection. 3. History of left testicular abscess, status post orchiectomy due to complicated urinary tract infection. 4. History of mid urethral stricture. RECOMMENDATIONS: Continue BPH medications, current regimen. The patient tentatively scheduled for suprapubic tube with Interventional Radiology tomorrow. N.P.O. after midnight. Coagulation profile is within normal limits. Do not remove his urethral Rangel catheter, I will need to monitor his urine output after SP tube, moreover to be used to distended his bladder for SP tube placement. Urethral Rangel catheter will be removed per my discretion. Job ID: [id number] [facility]
[2019-10-14] MEDS: Furosemide 40 MG TAB PO SCH (12:21)
--- NOTE | 2019-10-14 12:27 | PDOC.HOSPP ---
- Subjective Encounter Date: 10/14/19 Encounter Time: 11:00 Subjective: CC: f/u urine retention The patient has no complaints. He has gavin catheter in place, no pain or nausea. Plan for suprapubic catheter placement tomorrow - Objective Vital Signs & Weight: Vital Signs (12 hours) Temp Pulse Resp BP BP Pulse Ox 10/14/19 11:07 97.6 F 61 18 138/61 93 L 10/14/19 08:00 98.0 F 60 18 140/57 L 92 L 10/14/19 03:57 98.1 F 60 18 135/61 94 L Weight Weight 211 lb I&O: 10/13/19 10/14/19 10/15/19 06:59 06:59 06:59 Intake Total 850 1210 480 Output Total 1900 2350 Balance -1050 -1140 480 Result Diagrams: 10/14/19 04:37 10/14/19 04:37 Hospitalist ROS - Review of Systems Constitutional: denies: fever, chills - Medication Medications: Active Medications Generic Name Dose Route Start Last Admin Trade Name Freq PRN Reason Stop Dose Admin Acetaminophen 650 mg 10/04/19 10:57 10/06/19 22:14 Tylenol PO 650 mg Q4H PRN Administration Headache/Fever/Mild Pain (1-3) Bisacodyl 10 mg 10/04/19 10:57 10/07/19 15:24 Dulcolax [place] 10 mg DAILYPRN PRN Administration Constipation Ciprofloxacin 500 mg 10/11/19 20:00 10/14/19 06:23 Cipro PO 500 mg 0600,2000 TOO Administration Cyanocobalamin 1,000 mcg 10/05/19 09:00 10/14/19 08:06 Vitamin B-12 PO 1,000 mcg DAILY TOO Administration Famotidine 20 mg 10/05/19 09:00 10/14/19 08:06 Pepcid PO 20 mg DAILY TOO Administration Finasteride 5 mg 10/04/19 21:00 10/13/19 20:03 Proscar PO 5 mg QPM TOO Administration Folic Acid 1 mg 10/05/19 09:00 10/14/19 08:06 Folvite PO 1 mg DAILY TOO Administration Furosemide 40 mg 10/09/19 12:00 10/14/19 12:21 Lasix PO 40 mg 1200 TOO Administration Guaifenesin/Dextromethorphan 15 ml 10/04/19 10:57 10/08/19 13:10 Robitussin Dm PO 15 ml Q4H PRN Administration Cough Metoprolol Tartrate 25 mg 10/04/19 21:00 10/14/19 08:06 Lopressor PO 25 mg BID TOO Administration Saccharomyces Boulardii 250 mg 10/05/19 09:00 10/14/19 08:06 Florastor PO 250 mg DAILY TOO Administration Senna/Docusate Sodium 2 tab 10/04/19 10:57 10/12/19 08:52 Senokot S PO 2 tab BIDPRN PRN Administration Constipation Simvastatin 10 mg 10/04/19 21:00 10/13/19 20:03 Zocor PO 10 mg QPM TOO Administration Sodium Chloride 10 ml 10/04/19 18:10 10/10/19 09:21 Flush - Normal Saline IVF 10 ml PRN PRN Administration Saline Flush Spironolactone 25 mg 10/09/19 21:00 10/13/19 20:03 Aldactone PO 25 mg QPM TOO Administration Tamsulosin HCl 0.4 mg 10/04/19 21:00 10/14/19 08:06 Flomax PO 0.4 mg BID TOO Administration - Exam General Appearance: NAD, awake alert Eye: PERRL, anicteric sclera ENT: normocephalic atraumatic, no oropharyngeal lesions Neck: no JVD Heart: RRR, no murmur, no gallops, no rubs Respiratory: CTAB, no wheezes, no rales, no ronchi Gastrointestinal: soft, non-tender Gastrointestinal - other findings: umbilical hernia. Gavin catheter in place with clear fluid Extremities: no cyanosis, no clubbing, no edema Skin: normal turgor, no lesions, no rashes Hosp A/P (1) Urine retention Code(s): R33.9 - RETENTION OF URINE, UNSPECIFIED Status: Acute (2) UTI (urinary tract infection) Status: Acute Qualifiers: Urinary tract infection type: acute cystitis Hematuria presence: with hematuria Qualified Code(s): N30.01 - Acute cystitis with hematuria (3) Chronic diastolic heart failure Code(s): I50.32 - CHRONIC DIASTOLIC (CONGESTIVE) HEART FAILURE Status: Chronic (4) Hypertension Code(s): I10 - ESSENTIAL (PRIMARY) HYPERTENSION Status: Chronic Qualifiers: Hypertension type: essential hypertension Qualified Code(s): I10 - Essential (primary) hypertension (5) Anemia Code(s): D64.9 - ANEMIA, UNSPECIFIED Status: Chronic Qualifiers: Anemia type: unspecified type Qualified Code(s): D64.9 - Anemia, unspecified - Plan This is an 89 year old male who presented with fever of 102, high WBC. lethargy and admitted for sepsis from UTI * Sepsis secondary to UTI * Urinary retention secondary to BPH - had temp of 102, WBC of 21 on admission. Blood cultures are negative, WBC is within normal range, UA was suspicious for UTI but no growth was seen. ID was consulted. Plan is to get cipro until 11/02. Per Dr. Ramirez, plan for suprapubic catheter on Tuesday but need to arrange with interventional radiology Dr. Murillo * CHF- stable, continue Lasix * Hypertension- stable, continue Metoprolol and Spironolactone * Fall prior to admission- continue with PT who recommended rehab * Macrocytic Anemia- Hb 9, at baseline Dispo: suprapubic catheter tomorrow DVT prophylaxis: SCDS Code status: full code
[2019-10-14] MEDS: Senokot S 8.6-50 MG TAB PO PRN (14:38)
[2019-10-14] MEDS: Simvastatin 5 MG TAB PO SCH (19:36)
[2019-10-14] MEDS: Spironolactone 25 MG TAB PO SCH (19:36)
[2019-10-14] MEDS: Finasteride 5 MG TAB PO SCH (19:36)
[2019-10-15] MEDS: Acetaminophen 325 MG TAB PO PRN ×2 (00:07→22:58)
[2019-10-15 05:36] LABS: Hemoglobin 9.4 g/dL (14.0-18.0); Mean Corpuscular HGB CONC 33.6 g/dL (32.0-36.0); Mean Corpuscular Hemoglobin 38.8 pg (27.0-31.0); Mean Platelet Volume 8.4 fL (7.4-10.4); Platelet Count 232 thou/uL (130-400); Red Blood Cell (RBC) Count 2.42 mill/uL (4.70-6.10); White Blood Cell (WBC) Count 7.6 thou/uL (4.8-10.8)
[2019-10-15] MEDS: Ciprofloxacin 500 MG TAB PO SCH ×2 (05:37→21:27)
[2019-10-15 06:36] LABS: Band 4 % (5-11); Lymphocytes 40 % (21-51); MDiff Complete? YES; Metamyelocyte 2 % (0-0); Monocytes 13 % (0-10); Myelocyte 6 % (0-0); Neutrophil 35 % (42-75)
[2019-10-15 06:44] LABS: ALT (SGPT) 34 U/L (8-55); AST (SGOT) 33 U/L (5-34); Albumin 3.5 g/dL (3.4-4.8); Alkaline Phosphatase 48 U/L (40-110); Anion Gap 15 mmol/L (10-20); BUN (Urea Nitrogen) 26 mg/dL (8.4-25.7); Bilirubin, Total 0.5 mg/dL (0.2-1.2); Calc. Creatinine Clearance 61 mL/min (70-130); Calcium 10.1 mg/dL (7.8-10.44); Carbon Dioxide 24 mmol/L (23-31); Chloride 103 mmol/L (98-107); Estimated GFR-MDRD 62; Globulin 3.5 g/dL (2.4-3.5); Glucose 110 mg/dL (83-110); Potassium 4.3 mmol/L (3.5-5.1); Sodium 138 mmol/L (136-145)
--- NOTE | 2019-10-15 08:30 | PRG ---
DATE OF SERVICE: 10/15/2019 SUBJECTIVE: The patient without complaints. Sitter at bedside. OBJECTIVE: VITAL SIGNS: Stable. Urine output clear 1250. ABDOMEN: Soft, nontender, nondistended. IMPRESSION AND PLAN: Mr. Roldan is an 89-year-old male with history of chronic incomplete emptying with massively enlarged prostate. Currently has an indwelling Rangel catheter. He is admitted for recurrent urinary tract infection. His son with further extensive consultation, agrees to suprapubic tube. Order placed for today. Keep the patient n.p.o. Pending suprapubic tube placement, I will need to reassess him. May require trach dilatation for larger bore SP tube under TIVA. I anticipate the patient will be in house at least until end of this later this week as he is transitioning to SP tube. Continue broad-spectrum antibiotic therapy. Job ID: [id number]
[2019-10-15] MEDS ORDERED: Sodium Bicarbonate 2.5 MEQ/5 ML VIAL ONE (08:58)
[2019-10-15] MEDS: Tamsulosin HCl 0.4 MG CAP PO SCH ×2 (11:33→21:26)
[2019-10-15] MEDS: Furosemide 40 MG TAB PO SCH (11:33)
[2019-10-15] MEDS: Saccharomyces boulardii 250 MG CAP PO SCH (11:33)
[2019-10-15] MEDS: Famotidine 20 MG TAB PO SCH (11:34)
[2019-10-15] MEDS: Folic Acid 1 MG TAB PO SCH (11:34)
[2019-10-15] MEDS: Cyanocobalamin (Vitamin B-12) 1,000 MCG TAB PO SCH (11:34)
[2019-10-15] MEDS: Metoprolol Tartrate 25 MG TAB PO SCH ×2 (11:34→21:26)
--- NOTE | 2019-10-15 13:52 | PRG ---
DATE OF SERVICE: 10/15/2019 SUBJECTIVE: The patient had a suprapubic catheter inserted. It looks like it is not the permanent one. The permanent one will be inserted Tuesday. He is kind of sleepy right now and has not had any respiratory issues, no diarrhea. Still has a Rangel catheter in place until the permanent suprapubic is inserted. OBJECTIVE: VITAL SIGNS: His vital signs are essentially normal. O2 saturation is a little bit down to 93. GENERAL: He is arousable, but falls asleep quickly. LUNGS: With symmetric clear breath sounds. HEART: S1 and S2, regular rate. ABDOMEN: Soft, not distended. The site of the suprapubic procedure is covered with dressing, which was not removed. NEURO: Unchanged. LABORATORY DATA: Sodium 138, creatinine 1.12. WBC count 7.6, hemoglobin 9.4, platelets 232, 35% neutrophils, 4% bands, 40% lymphocytes, and the microbiology data with negative cultures in the urine and blood. ASSESSMENT AND DISCUSSION: Cognitive dysfunction with BPH, not a candidate for prostatectomy or other less invasive procedure. Has had a suprapubic placed and the permanent tube will be inserted Tuesday, looks like the plan is to continue quinolones and date will be October 30, may extend to a total of 6 weeks in view of the high risk and a large size of his prostate gland and likely chronic prostatitis, so let us make the end date of therapy, November 13. Job ID: [id number]
--- NOTE | 2019-10-15 15:23 | PDOC.HOSPP ---
- Subjective Encounter Date: 10/15/19 Encounter Time: 10:05 Subjective: Mr. Roldan is a 89 y/o male with a PMH of dementia and BPH with chronic incomplete emptying and UTI who presented to the hospital on 10/04/19 with urinary retention. Today he has no complaints and denies any pain. He is s/p suprapubic catheter placement this morning. - Objective Vital Signs & Weight: Vital Signs (12 hours) Temp Pulse Resp BP BP Pulse Ox 10/15/19 13:29 60 20 142/49 H 95 10/15/19 08:00 93 L 10/15/19 07:24 97.6 F 61 22 H 122/58 L 93 L 10/15/19 04:18 97.8 F 60 16 119/60 92 L Weight Admit Weight 211 lb Weight 211 lb I&O: 10/14/19 10/15/19 10/16/19 06:59 06:59 06:59 Intake Total 1210 1390 Output Total 2350 1250 Balance -1140 140 Result Diagrams: 10/15/19 04:46 10/15/19 04:46 Hospitalist ROS - Review of Systems Gastrointestinal: denies: nausea, vomiting, abdominal pain Genitourinary: denies: dysuria, retention All other systems reviewed; all pertinent +/- noted in HPI/Subj - Medication Medications: Active Medications Generic Name Dose Route Start Last Admin Trade Name Freq PRN Reason Stop Dose Admin Acetaminophen 650 mg 10/04/19 10:57 10/15/19 00:07 Tylenol PO 650 mg Q4H PRN Administration Headache/Fever/Mild Pain (1-3) Bisacodyl 10 mg 10/04/19 10:57 10/07/19 15:24 Dulcolax [place] 10 mg DAILYPRN PRN Administration Constipation Ciprofloxacin 500 mg 10/11/19 20:00 10/15/19 05:37 Cipro PO 500 mg 0600,2000 TOO Administration Cyanocobalamin 1,000 mcg 10/05/19 09:00 10/15/19 11:34 Vitamin B-12 PO 1,000 mcg DAILY TOO Administration Famotidine 20 mg 10/05/19 09:00 10/15/19 11:34 Pepcid PO 20 mg DAILY TOO Administration Finasteride 5 mg 10/04/19 21:00 10/14/19 19:36 Proscar PO 5 mg QPM TOO Administration Folic Acid 1 mg 10/05/19 09:00 10/15/19 11:34 Folvite PO 1 mg DAILY TOO Administration Furosemide 40 mg 10/09/19 12:00 10/15/19 11:33 Lasix PO 40 mg 1200 TOO Administration Guaifenesin/Dextromethorphan 15 ml 10/04/19 10:57 10/08/19 13:10 Robitussin Dm PO 15 ml Q4H PRN Administration Cough Metoprolol Tartrate 25 mg 10/04/19 21:00 10/15/19 11:34 Lopressor PO 25 mg BID TOO Administration Saccharomyces Boulardii 250 mg 10/05/19 09:00 10/15/19 11:33 Florastor PO 250 mg DAILY TOO Administration Senna/Docusate Sodium 2 tab 10/04/19 10:57 10/14/19 14:38 Senokot S PO 2 tab BIDPRN PRN Administration Constipation Simvastatin 10 mg 10/04/19 21:00 10/14/19 19:36 Zocor PO 10 mg QPM TOO Administration Sodium Chloride 10 ml 10/04/19 18:10 10/10/19 09:21 Flush - Normal Saline IVF 10 ml PRN PRN Administration Saline Flush Spironolactone 25 mg 10/09/19 21:00 10/14/19 19:36 Aldactone PO 25 mg QPM TOO Administration Tamsulosin HCl 0.4 mg 10/04/19 21:00 10/15/19 11:33 Flomax PO 0.4 mg BID TOO Administration - Exam Eye: PERRL ENT: normocephalic atraumatic Neck: supple, no JVD Heart: RRR Respiratory: CTAB, no wheezes, no rales, no ronchi Gastrointestinal: soft Gastrointestinal - other findings: suprapubic catheter in place covered by bandages. Umbilical hernia Extremities: no edema Psychiatric: normal behavior, A&O x 3 Hosp A/P (1) Urine retention Code(s): R33.9 - RETENTION OF URINE, UNSPECIFIED Status: Acute (2) UTI (urinary tract infection) Status: Acute Qualifiers: Urinary tract infection type: acute cystitis Hematuria presence: with hematuria Qualified Code(s): N30.01 - Acute cystitis with hematuria (3) Chronic diastolic heart failure Code(s): I50.32 - CHRONIC DIASTOLIC (CONGESTIVE) HEART FAILURE Status: Chronic (4) Hypertension Code(s): I10 - ESSENTIAL (PRIMARY) HYPERTENSION Status: Chronic Qualifiers: Hypertension type: essential hypertension Qualified Code(s): I10 - Essential (primary) hypertension (5) Anemia Code(s): D64.9 - ANEMIA, UNSPECIFIED Status: Chronic Qualifiers: Anemia type: unspecified type Qualified Code(s): D64.9 - Anemia, unspecified - Plan This is an 89 year old male who presented with fever of 102, high WBC. lethargy and admitted for sepsis from UTI * Sepsis secondary to UTI * Urinary retention secondary to BPH - had temp of 102, WBC of 21 on admission. Blood cultures are negative, WBC is within normal range, UA was suspicious for UTI but no growth was seen. ID was consulted. Plan is to get cipro for total of [address] Ramirez had suprapubic catheter placed this morning. Will monitor and dilate with permanent tube later this week, tuesday or . Patient is stable at this time. * CHF- stable, continue Lasix * Hypertension- stable, continue Metoprolol and Spironolactone * Fall prior to admission- continue with PT who recommended rehab * Macrocytic Anemia- Hb 9.4, at baseline Attestation: agree with subjective and findings with MS3 Tc Cotter. Patient has no pain post catheter placement. Plan is to have dilation of his tract on Tuesday
[2019-10-15] MEDS ORDERED: Polyethylene Glycol 3350 17 GM Packet PO SCH (16:00)
[2019-10-15] MEDS: Simvastatin 5 MG TAB PO SCH (21:26)
[2019-10-15] MEDS: Finasteride 5 MG TAB PO SCH (21:27)
[2019-10-15] MEDS: Spironolactone 25 MG TAB PO SCH (21:30)
[2019-10-16] MEDS: Ciprofloxacin 500 MG TAB PO SCH ×2 (05:10→20:06)
[2019-10-16 06:46] LABS: Hemoglobin 9.5 g/dL (14.0-18.0); Mean Corpuscular HGB CONC 33.3 g/dL (32.0-36.0); Mean Corpuscular Hemoglobin 38.3 pg (27.0-31.0); Mean Platelet Volume 8.9 fL (7.4-10.4); Platelet Count 230 thou/uL (130-400); Red Blood Cell (RBC) Count 2.48 mill/uL (4.70-6.10); White Blood Cell (WBC) Count 7.1 thou/uL (4.8-10.8)
[2019-10-16 07:03] LABS: Albumin 3.6 g/dL (3.4-4.8)
[2019-10-16 07:04] LABS: Chloride 102 mmol/L (98-107); Potassium 4.5 mmol/L (3.5-5.1); Sodium 137 mmol/L (136-145)
[2019-10-16 07:06] LABS: Globulin 3.2 g/dL (2.4-3.5); Glucose 117 mg/dL (83-110); Protein, Total 6.8 g/dL (5.8-8.1)
[2019-10-16 07:07] LABS: Anion Gap 16 mmol/L (10-20); Bilirubin, Total 0.6 mg/dL (0.2-1.2); Carbon Dioxide 24 mmol/L (23-31)
[2019-10-16 07:08] LABS: Alkaline Phosphatase 51 U/L (40-110)
[2019-10-16 07:09] LABS: Calc. Creatinine Clearance 57 mL/min (70-130); Estimated GFR-MDRD 58
[2019-10-16 07:10] LABS: BUN (Urea Nitrogen) 25 mg/dL (8.4-25.7)
[2019-10-16 07:11] LABS: ALT (SGPT) 30 U/L (8-55); AST (SGOT) 27 U/L (5-34)
[2019-10-16] MEDS: Metoprolol Tartrate 25 MG TAB PO SCH ×2 (07:46→20:06)
[2019-10-16] MEDS: Famotidine 20 MG TAB PO SCH (07:46)
[2019-10-16] MEDS: Saccharomyces boulardii 250 MG CAP PO SCH (07:46)
[2019-10-16] MEDS: Cyanocobalamin (Vitamin B-12) 1,000 MCG TAB PO SCH (07:47)
[2019-10-16] MEDS: Folic Acid 1 MG TAB PO SCH (07:47)
--- NOTE | 2019-10-16 07:51 | PRG ---
DATE OF SERVICE: 10/16/2019 SUBJECTIVE: The patient is resting. Per sitter, he was combative last night, trying to get out of bed. OBJECTIVE: VITAL SIGNS: Stable. He is afebrile. I's and O's 1250 of yellow urine. PERTINENT LABORATORY DATA: White count 7, hemoglobin 9.5. Creatinine is 1.1. IMPRESSION AND PLAN: Mr. Roldan is an 89-year-old male with history of massively-enlarged prostate with chronic incomplete emptying, recurrent urinary tract infection, history of testicular abscess status post orchidectomy. The patient's son, power of commercial attorney, has now agreed for SP tube, access obtained yesterday. As he is morbidly obese, I plan on placing a suprapubic tube, dilatation of current tract provided by Interventional Radiology tomorrow. N.p.o. after midnight, cysto, suprapubic tube placement, tract dilatation plan for tomorrow afternoon. As surgery scheduled tomorrow afternoon, I anticipate the patient should be able to transition to his nursing rehab facility on . Continue sitter @ bedside, as he is combative, high risk for fall, traumatic line removal. Job ID: [id number] MTDD
[2019-10-16] MEDS: Tamsulosin HCl 0.4 MG CAP PO SCH ×2 (07:56→20:06)
[2019-10-16 08:31] LABS: Band 13 % (5-11); Lymphocytes 30 % (21-51); MDiff Complete? YES; Macrocytosis MODERATE=16-30 cells (100X) (0-5/hpf); Metamyelocyte 3 % (0-0); Monocytes 15 % (0-10); Myelocyte 5 % (0-0); Neutrophil 34 % (42-75); Platelet Morphology Comment Appears Adequate; Polychromasia SLIGHT = 2-3 cells (100X) (0-2/hpf)
[2019-10-16] MEDS: Furosemide 40 MG TAB PO SCH (12:06)
--- NOTE | 2019-10-16 15:33 | PDOC.HOSPP ---
- Subjective Encounter Date: 10/16/19 Encounter Time: 11:30 Subjective: The patient has no complaints. He had suprapubic catheter placed yesterday, plan to dilate tomorrow Has poor hearing, son requested we check his ears due to history of lots of wax previously - Objective Vital Signs & Weight: Vital Signs (12 hours) Temp Pulse Resp BP BP Pulse Ox 10/16/19 11:30 98.4 F 60 20 117/57 L 93 L 10/16/19 08:00 95 10/16/19 04:27 97.9 F 60 18 134/60 95 Weight Admit Weight 211 lb Weight 211 lb I&O: 10/15/19 10/16/19 10/17/19 06:59 06:59 06:59 Intake Total 1390 Output Total 1250 1800 Balance 140 -1800 Result Diagrams: 10/16/19 05:05 10/16/19 06:33 Hospitalist ROS - Review of Systems Constitutional: denies: fever, chills Cardiovascular: denies: chest pain, palpitations Gastrointestinal: denies: nausea, vomiting, abdominal pain - Medication Medications: Active Medications Generic Name Dose Route Start Last Admin Trade Name Freq PRN Reason Stop Dose Admin Acetaminophen 650 mg 10/04/19 10:57 10/15/19 22:58 Tylenol PO 650 mg Q4H PRN Administration Headache/Fever/Mild Pain (1-3) Bisacodyl 10 mg 10/04/19 10:57 10/07/19 15:24 Dulcolax [place] 10 mg DAILYPRN PRN Administration Constipation Ciprofloxacin 500 mg 10/11/19 20:00 10/16/19 05:10 Cipro PO 500 mg TOO Administration Cyanocobalamin 1,000 mcg 10/05/19 09:00 10/16/19 07:47 Vitamin B-12 PO 1,000 mcg DAILY TOO Administration Famotidine 20 mg 10/05/19 09:00 10/16/19 07:46 Pepcid PO 20 mg DAILY TOO Administration Finasteride 5 mg 10/04/19 21:00 10/15/19 21:27 Proscar PO 5 mg QPM TOO Administration Folic Acid 1 mg 10/05/19 09:00 10/16/19 07:47 Folvite PO 1 mg DAILY TOO Administration Furosemide 40 mg 10/09/19 12:00 10/16/19 12:06 Lasix PO 40 mg 1200 TOO Administration Guaifenesin/Dextromethorphan 15 ml 10/04/19 10:57 10/08/19 13:10 Robitussin Dm PO 15 ml Q4H PRN Administration Cough Metoprolol Tartrate 25 mg 10/04/19 21:00 10/16/19 07:46 Lopressor PO 25 mg BID TOO Administration Saccharomyces Boulardii 250 mg 10/05/19 09:00 10/16/19 07:46 Florastor PO 250 mg DAILY TOO Administration Senna/Docusate Sodium 2 tab 10/04/19 10:57 10/14/19 14:38 Senokot S PO 2 tab BIDPRN PRN Administration Constipation Simvastatin 10 mg 10/04/19 21:00 10/15/19 21:26 Zocor PO 10 mg QPM TOO Administration Sodium Chloride 10 ml 10/04/19 18:10 10/10/19 09:21 Flush - Normal Saline IVF 10 ml PRN PRN Administration Saline Flush Spironolactone 25 mg 10/09/19 21:00 10/15/19 21:30 Aldactone PO 25 mg QPM TOO Administration Tamsulosin HCl 0.4 mg 10/04/19 21:00 10/16/19 07:56 Flomax PO 0.4 mg BID TOO Administration - Exam General Appearance: NAD, awake alert Eye: PERRL, anicteric sclera Neck: no JVD Heart: RRR, no murmur, no gallops, no rubs Respiratory: CTAB, no wheezes, no rales, no ronchi, no tachypnea Gastrointestinal: soft, non-distended Gastrointestinal - other findings: ventral hernia, suprapubic catheter in place Extremities: no cyanosis, no clubbing, no edema Skin: normal turgor, no lesions, no rashes Neurological: cranial nerve grossly intact, normal sensation to touch, no focal deficits, no new deficit Hosp A/P (1) Urine retention Code(s): R33.9 - RETENTION OF URINE, UNSPECIFIED Status: Acute (2) UTI (urinary tract infection) Status: Acute Qualifiers: Urinary tract infection type: acute cystitis Hematuria presence: with hematuria Qualified Code(s): N30.01 - Acute cystitis with hematuria (3) Chronic diastolic heart failure Code(s): I50.32 - CHRONIC DIASTOLIC (CONGESTIVE) HEART FAILURE Status: Chronic (4) Hypertension Code(s): I10 - ESSENTIAL (PRIMARY) HYPERTENSION Status: Chronic Qualifiers: Hypertension type: essential hypertension Qualified Code(s): I10 - Essential (primary) hypertension (5) Anemia Code(s): D64.9 - ANEMIA, UNSPECIFIED Status: Chronic Qualifiers: Anemia type: unspecified type Qualified Code(s): D64.9 - Anemia, unspecified - Plan This is an 89 year old male who presented with fever of 102, high WBC. lethargy and admitted for sepsis from UTI * Sepsis secondary to UTI * Urinary retention secondary to BPH - had temp of 102, WBC of 21 on admission. Blood cultures are negative, WBC is within normal range, UA was suspicious for UTI but no growth was seen. ID was consulted. - Plan is to get cipro for total of 6 weeks until 11/13 per infectious disease . - Dr. Ramirez had suprapubic catheter placed 10/15. Patient to get further dilation in the OR on 10/17 * CHF- stable, continue Lasix * Hypertension- stable, continue Metoprolol and Spironolactone * Fall prior to admission- continue with PT who recommended rehab * Macrocytic Anemia- Hb 9.4, at baseline
[2019-10-16] MEDS: Carbamide Peroxide 6.5% Otic Drops 15 ml Bottle EA EAR SCH (20:06)
[2019-10-16] MEDS: Simvastatin 5 MG TAB PO SCH (20:06)
[2019-10-16] MEDS: Finasteride 5 MG TAB PO SCH (20:06)
[2019-10-16] MEDS: Spironolactone 25 MG TAB PO SCH (20:06)
[2019-10-17] MEDS: Ciprofloxacin 500 MG TAB PO SCH ×3 (06:26→20:40)
[2019-10-17 06:48] LABS: ALT (SGPT) 29 U/L (8-55); AST (SGOT) 27 U/L (5-34); Albumin 3.6 g/dL (3.4-4.8); Alkaline Phosphatase 53 U/L (40-110); Anion Gap 16 mmol/L (10-20); BUN (Urea Nitrogen) 24 mg/dL (8.4-25.7); Bilirubin, Total 0.6 mg/dL (0.2-1.2); Calc. Creatinine Clearance 57 mL/min (70-130); Calcium 9.7 mg/dL (7.8-10.44); Carbon Dioxide 22 mmol/L (23-31); Chloride 104 mmol/L (98-107); Estimated GFR-MDRD 58; Globulin 3.4 g/dL (2.4-3.5); Glucose 112 mg/dL (83-110); Potassium 4.3 mmol/L (3.5-5.1); Sodium 138 mmol/L (136-145)
[2019-10-17 06:53] LABS: Band 2 % (5-11); Eosinophils 2 % (0-10); Hemoglobin 9.6 g/dL (14.0-18.0); Lymphocytes 43 % (21-51); MDiff Complete? YES; Macrocytosis SLIGHT = 6-15 cells (100X) (0-5/hpf); Mean Corpuscular HGB CONC 32.8 g/dL (32.0-36.0); Mean Corpuscular Hemoglobin 37.9 pg (27.0-31.0); Mean Platelet Volume 8.6 fL (7.4-10.4); Monocytes 14 % (0-10); Myelocyte 4 % (0-0); Neutrophil 35 % (42-75); Platelet Count 231 thou/uL (130-400); Red Blood Cell (RBC) Count 2.53 mill/uL (4.70-6.10); White Blood Cell (WBC) Count 6.1 thou/uL (4.8-10.8)
[2019-10-17] MEDS: Famotidine 20 MG TAB PO SCH (07:50)
[2019-10-17] MEDS: Saccharomyces boulardii 250 MG CAP PO SCH (07:50)
[2019-10-17] MEDS: Metoprolol Tartrate 25 MG TAB PO SCH ×2 (07:51→20:40)
[2019-10-17] MEDS: Carbamide Peroxide 6.5% Otic Drops 15 ml Bottle EA EAR SCH ×2 (07:51→20:46)
[2019-10-17] MEDS: Cyanocobalamin (Vitamin B-12) 1,000 MCG TAB PO SCH (07:51)
[2019-10-17] MEDS: Folic Acid 1 MG TAB PO SCH (07:51)
[2019-10-17] MEDS: Tamsulosin HCl 0.4 MG CAP PO SCH ×2 (07:51→20:40)
--- NOTE | 2019-10-17 08:10 | PRG ---
DATE OF SERVICE: 10/17/2019 SUBJECTIVE: The patient resting. OBJECTIVE: VITAL SIGNS: Stable. Urine output, yellow, 1250. ABDOMEN: Soft, nontender, and nondistended. Suprapubic access remains taped. LABORATORY DATA: White count today is 6, hemoglobin 9.1, and platelet 231. Creatinine 1.1. All cultures negative. IMPRESSION AND PLAN: 1. 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 2. History of recurrent urinary tract infection. Plan suprapubic tube dilatation, placement this afternoon. Job ID: [id number]
[2019-10-17] MEDS: Furosemide 40 MG TAB PO SCH (11:40)
[2019-10-17] MEDS ORDERED: PROPOFOL 200 MG/20 ML VIAL ONE (12:08)
--- NOTE | 2019-10-17 12:30 | CT ---
EXAM: CT Supra Pubic Catheter [facility] PROVIDED CLINICAL HISTORY: Urinary retention enlargement of prostate gland. COMPARISON: None TECHNIQUE: After informed consent was obtained, the patient was placed on the CT scan table in the supine positi on. Limited noncontrasted CT scan was obtained through the pelvis with grid localizer in place overlying the level of the urinary bladder. An area was marked and then meticulously prepped and drap ed in usual sterile fashion. The skin and subcutaneous tissues were infiltrated with buffered 1% lidocaine for local anesthesia. A small skin incision was made. Utilizing trocar technique, an 8 [place] cope loop all-purpose drainage catheter was advanced into the urinary bladder. The needle and inner stiffener were removed, and the catheter was advanced. There was a return of clear urine from the catheter. Catheter was sutured in place utilizing 2-0 Ethilon suture material and placed to gravity drainage. Imaging obtain ed after placement of the catheter demonstrates the catheter within the urinary bladder with decompressed urinary bladder now present. Dry sterile dressing was placed. Patient's Rangel catheter r emains in place, but the balloon no longer appears distended as previously noted on imaging prior to placement of the catheter. This finding was discussed with Dr. Ramirez. Dry sterile dressing was placed at catheter entry site. The patient tolerated the procedure well with out immediate complication. IMPRESSION: Technically successful placement of an 8 [place] cope loop all-purpose drainage catheter serving as a suprapubic catheter. Placement of this catheter was requested by Dr. Ramirez. Transcribed Date/Time: 10/17/2019 12:30 PM
--- NOTE | 2019-10-17 16:36 | OP ---
DATE OF PROCEDURE: 10/17/2019 PREOPERATIVE DIAGNOSES: An 89-year-old male with: 1. Trilobar hyperplasia of the prostate, massive enlargement, with chronic urinary retention, incomplete emptying. 2. History of recurrent urinary tract infection. 3. Advanced age. POSTOPERATIVE DIAGNOSES: An 89-year-old male with: 1. Trilobar hyperplasia of the prostate, massive enlargement, with chronic urinary retention, incomplete emptying. 2. History of recurrent urinary tract infection. 3. Advanced age. PROCEDURES PERFORMED: 1. Cystoscopy. 2. A 24-Icelandic 30 mL suprapubic tube placement, suprapubic tube tract dilatation. ANESTHESIA: TIVA. COMPLICATIONS: None apparent. DISPOSITION: To recovery room in stable condition. INDICATIONS FOR PROCEDURE AND HISTORY: Mr. 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 The patient has advanced age with significant enlargement of his prostate, which is massively enlarged, and the son does not desire his father to proceed with major surgical intervention. He is not a candidate for CIC due to dementia, therefore we have discussed extensively regarding suprapubic tube and presents today. Indications, risks, complications, and alternatives of the procedure have been extensively discussed with the patient and son who is a power of insurance defense attorney. Risks and complications including, but not limited to, bleeding, pain, infection, sepsis, injury to adjacent structures were reviewed. SP tube tract was obtained by Interventional Radiology due to his body habitus and a large ventral hernia. DESCRIPTION OF PROCEDURE: After an informed consent was signed, the patient was taken to the operating room and placed in a dorsal lithotomy position with the abdomen and the genitalia were formally prepped and draped. A 21-Icelandic cystoscope was utilized for cystoscopy, again demonstrated a significantly enlarged prostate volume with trilobar hyperplasia. Cystoscopy somewhat suboptimal as he has debris within the bladder, however, no obvious bladder stones. Significant trabeculation was noted. The access 8-Icelandic catheter was seen in the bladder, and I passed a 0.35 SuperStiff wire, and this was visualized in the bladder with the cystoscope. Using a [employer] 30-Icelandic 12 cm balloon dilator, we dilated his suprapubic tube track after an incision was made of his skin with an 11 blade. Pressure was held for about 2 to 3 minutes, and I passed a 24-Icelandic 30 mL suprapubic tube with Angiocath passed over the distal tip and this was seen in the bladder and a balloon inflated to 30 mL. This was attached to gravity leg bag and secured. Urethral Rangel catheter will remain discontinued. Cystoscope was removed and he tolerated the procedure well. Transported back to his bed. We will keep him overnight and monitor for degree of hematuria. addendum: He did have hematuria after suprapubic tube, manipulating his large prostatic urethra. Therefore a 20 Icelandic urethral Rangel catheter was placed to gravity per urethra. We will monitor him with CBI overnight. Job ID: [id number] MTDD
[2019-10-17] MEDS ORDERED: HYDROcodone/Acetaminophen 5/325 mg Tablet PO PRN (16:59)
[2019-10-17] MEDS: Spironolactone 25 MG TAB PO SCH (20:39)
[2019-10-17] MEDS: Simvastatin 5 MG TAB PO SCH (20:39)
[2019-10-17] MEDS: Finasteride 5 MG TAB PO SCH (20:40)
--- NOTE | 2019-10-17 20:44 | PDOC.HOSPP ---
- Subjective Encounter Date: 10/17/19 Encounter Time: 19:00 Subjective: CC: f/u suprapubic catheter The patient had cystosocopy done today and was noted to have significantly enlarged prostate with trilobar hyperplasia. His suprapubic tract was dilated. Patient had urethral gavin discontinued but then had hematuria fater procedure therefore [address] [place] urethral gavin was placed He is on bladder irrigation. Patient has no constipation today - Objective Vital Signs & Weight: Vital Signs (12 hours) Temp Pulse Resp BP BP BP Pulse Ox 10/17/19 20:04 97.7 F 63 18 144/64 H 96 10/17/19 17:50 97.5 F L 60 18 137/63 96 10/17/19 13:52 97.4 F L 59 L 20 126/59 L 94 L 10/17/19 11:36 97.2 F L 60 18 109/60 94 L Weight Admit Weight 211 lb Weight 211 lb I&O: 10/16/19 10/17/19 10/18/19 06:59 06:59 06:59 Output Total 1800 700 950 Balance -1800 -700 -950 Result Diagrams: 10/17/19 05:37 10/17/19 05:37 Hospitalist ROS - Review of Systems Constitutional: denies: fever, chills - Medication Medications: Active Medications Generic Name Dose Route Start Last Admin Trade Name Freq PRN Reason Stop Dose Admin Acetaminophen 650 mg 10/04/19 10:57 10/15/19 22:58 Tylenol PO 650 mg Q4H PRN Administration Headache/Fever/Mild Pain (1-3) Bisacodyl 10 mg 10/04/19 10:57 10/07/19 15:24 Dulcolax [place] 10 mg DAILYPRN PRN Administration Constipation Carbamide Perox/Anhydrous Glycerin 1 drop 10/16/19 21:00 10/17/19 07:51 Debrox 6.5% Otic EA EAR 1 drop BID TOO Administration Ciprofloxacin 500 mg 10/11/19 20:00 10/17/19 07:51 Cipro PO 500 mg 599,1999 TOO Administration Cyanocobalamin 1,000 mcg 10/05/19 09:00 10/17/19 07:51 Vitamin B-12 PO 1,000 mcg DAILY TOO Administration Famotidine 20 mg 10/05/19 09:00 10/17/19 07:50 Pepcid PO 20 mg DAILY TOO Administration Finasteride 5 mg 10/04/19 21:00 10/16/19 20:06 Proscar PO 5 mg QPM TOO Administration Folic Acid 1 mg 10/05/19 09:00 10/17/19 07:51 Folvite PO 1 mg DAILY TOO Administration Furosemide 40 mg 10/09/19 12:00 10/17/19 11:40 Lasix PO Not Given 1200 TOO Guaifenesin/Dextromethorphan 15 ml 10/04/19 10:57 10/08/19 13:10 Robitussin Dm PO 15 ml Q4H PRN Administration Cough Metoprolol Tartrate 25 mg 10/04/19 21:00 10/17/19 07:51 Lopressor PO 25 mg BID TOO Administration Saccharomyces Boulardii 250 mg 10/05/19 09:00 10/17/19 07:50 Florastor PO 250 mg DAILY TOO Administration Senna/Docusate Sodium 2 tab 10/04/19 10:57 10/14/19 14:38 Senokot S PO 2 tab BIDPRN PRN Administration Constipation Simvastatin 10 mg 10/04/19 21:00 10/16/19 20:06 Zocor PO 10 mg QPM TOO Administration Sodium Chloride 10 ml 10/04/19 18:10 10/10/19 09:21 Flush - Normal Saline IVF 10 ml PRN PRN Administration Saline Flush Spironolactone 25 mg 10/09/19 21:00 10/16/19 20:06 Aldactone PO 25 mg QPM TOO Administration Tamsulosin HCl 0.4 mg 10/04/19 21:00 10/17/19 07:51 Flomax PO 0.4 mg BID TOO Administration - Exam General Appearance: NAD, awake alert Eye: PERRL, anicteric sclera ENT: normocephalic atraumatic, no oropharyngeal lesions Neck: no JVD Heart: RRR, no murmur, no gallops, no rubs Respiratory: CTAB, no wheezes, no rales, no ronchi Gastrointestinal: soft, non-tender Gastrointestinal - other findings: umbilical hernia. Suprapubic catheter and gavin catheter. Hematuria noted Extremities: no cyanosis, no clubbing, no edema Skin: normal turgor, no lesions, no rashes Neurological: cranial nerve grossly intact, normal sensation to touch, no focal deficits, no new deficit Hosp A/P (1) Urine retention Code(s): R33.9 - RETENTION OF URINE, UNSPECIFIED Status: Acute (2) UTI (urinary tract infection) Status: Acute Qualifiers: Urinary tract infection type: acute cystitis Hematuria presence: with hematuria Qualified Code(s): N30.01 - Acute cystitis with hematuria (3) Chronic diastolic heart failure Code(s): I50.32 - CHRONIC DIASTOLIC (CONGESTIVE) HEART FAILURE Status: Chronic (4) Hypertension Code(s): I10 - ESSENTIAL (PRIMARY) HYPERTENSION Status: Chronic Qualifiers: Hypertension type: essential hypertension Qualified Code(s): I10 - Essential (primary) hypertension (5) Anemia Code(s): D64.9 - ANEMIA, UNSPECIFIED Status: Chronic Qualifiers: Anemia type: unspecified type Qualified Code(s): D64.9 - Anemia, unspecified - Plan This is an 89 year old male who presented with fever of 102, high WBC. lethargy and admitted for sepsis from UTI * Sepsis secondary to UTI * Urinary retention secondary to BPH * S/p cystoscopy with suprapubic tube placement and dilation 10/17 - had temp of 102, WBC of 21 on admission. Blood cultures are negative, WBC is within normal range, UA was suspicious for UTI but no growth was seen. ID was consulted. - Plan is to get cipro for total of 6 weeks until 11/13 per infectious disease . - Dr. Ramirez had suprapubic catheter placed 10/15. S/p dilation today with hematuria. Currently on CBI, monitor overnight Chronic problems: * CHF- stable, continue Lasix * Hypertension- stable, continue Metoprolol and Spironolactone * Fall prior to admission- continue with PT who recommended rehab * Macrocytic Anemia- Hb 9.4, at baseline
[2019-10-17] MEDS: Acetaminophen 325 MG TAB PO PRN (21:35)
[2019-10-18 06:11] LABS: Hemoglobin 9.8 g/dL (14.0-18.0); Mean Corpuscular HGB CONC 32.3 g/dL (32.0-36.0); Mean Corpuscular Hemoglobin 37.6 pg (27.0-31.0); Mean Platelet Volume 8.6 fL (7.4-10.4); Platelet Count 234 thou/uL (130-400); RBC Distribution Width 12.9 % (11.5-14.5); White Blood Cell (WBC) Count 7.7 thou/uL (4.8-10.8)
[2019-10-18 06:33] LABS: ALT (SGPT) 26 U/L (8-55); AST (SGOT) 29 U/L (5-34); Albumin 3.6 g/dL (3.4-4.8); Alkaline Phosphatase 57 U/L (40-110); Anion Gap 17 mmol/L (10-20); BUN (Urea Nitrogen) 23 mg/dL (8.4-25.7); Bilirubin, Total 0.9 mg/dL (0.2-1.2); Calc. Creatinine Clearance 55 mL/min (70-130); Calcium 9.5 mg/dL (7.8-10.44); Carbon Dioxide 19 mmol/L (23-31); Chloride 105 mmol/L (98-107); Estimated GFR-MDRD 55; Globulin 3.6 g/dL (2.4-3.5); Glucose 127 mg/dL (83-110); Potassium 4.6 mmol/L (3.5-5.1); Protein, Total 7.2 g/dL (5.8-8.1); Sodium 136 mmol/L (136-145)
[2019-10-18] MEDS: Ciprofloxacin 500 MG TAB PO SCH ×2 (06:51→20:10)
[2019-10-18] MEDS: Acetaminophen 325 MG TAB PO PRN (06:51)
--- NOTE | 2019-10-18 08:12 | PRG ---
DATE OF SERVICE: 10/18/2019 SUBJECTIVE: He patient eating breakfast. Has a son at bedside. OBJECTIVE: VITAL SIGNS: Stable. He is afebrile. ABDOMEN: Soft. Protuberant. No rigidity. No rebound. CBI going at a light rate with pink-tinged urine, slightly red. No significant clots noted. I flushed the catheter through the CBI tubing and there was immediate clearing. PERTINENT LABORATORY DATA: His white count is stable at 7, hemoglobin stable at 9.8, and platelet 234. Creatinine 1.2. IMPRESSION AND PLAN: 1. Mr. Roldan is an 89-year-old male with history of very large prostate, with chronic incomplete emptying. 2. Recurrent urinary tract infection. 3. Current admission due to urinary tract infection. 4. Postop day #1, status post suprapubic tube dilatation, tube placement, cystoscopy due to postop gross hematuria, he was monitored overnight with CBI. His H and H stable, will hold CBI and monitor for degree of hematuria. Informed the patient/son that transitioning to alf facility will be held until hematuria resolves. We may transition him to the new suprapubic tube to gravity. Continue antibiotics per Infectious Disease. Job ID: [id number] [facility]
[2019-10-18 08:42] LABS: Band 10 % (5-11); Eosinophils 2 % (0-10); Lymphocytes 20 % (21-51); MDiff Complete? YES; Metamyelocyte 1 % (0-0); Monocytes 10 % (0-10); Myelocyte 1 % (0-0); Neutrophil 56 % (42-75); Platelet Morphology Comment Appears Decreased; Polychromasia SLIGHT = 2-3 cells (100X) (0-2/hpf)
[2019-10-18] MEDS: Metoprolol Tartrate 25 MG TAB PO SCH ×2 (08:56→20:10)
[2019-10-18] MEDS: Famotidine 20 MG TAB PO SCH (08:57)
[2019-10-18] MEDS: Folic Acid 1 MG TAB PO SCH (08:57)
[2019-10-18] MEDS: Saccharomyces boulardii 250 MG CAP PO SCH (08:57)
[2019-10-18] MEDS: Tamsulosin HCl 0.4 MG CAP PO SCH ×2 (08:57→20:10)
[2019-10-18] MEDS: Carbamide Peroxide 6.5% Otic Drops 15 ml Bottle EA EAR SCH ×2 (08:58→20:11)
[2019-10-18] MEDS: Cyanocobalamin (Vitamin B-12) 1,000 MCG TAB PO SCH (08:58)
[2019-10-18] MEDS: Furosemide 40 MG TAB PO SCH (12:43)
[2019-10-18] MEDS: HYDROcodone/Acetaminophen 5/325 mg Tablet PO PRN ×2 (14:54→21:06)
--- NOTE | 2019-10-18 17:19 | PDOC.HOSPP ---
- Subjective Encounter Date: 10/18/19 Encounter Time: 11:00 Subjective: F/u : Hematuria THe patient continues to have some hematuria. CBI is ongoing. He has some bladder pain. No constipation - Objective Vital Signs & Weight: Vital Signs (12 hours) Temp Pulse Resp BP BP Pulse Ox 10/18/19 15:08 98.2 F 78 20 144/56 H 95 10/18/19 11:33 97.1 F L 73 16 121/61 94 L 10/18/19 08:49 98.4 F 70 16 137/56 L 93 L Weight Admit Weight 211 lb Weight 211 lb I&O: 10/17/19 10/18/19 10/19/19 06:59 06:59 06:59 Output Total 700 950 Balance -700 -950 Result Diagrams: 10/18/19 05:38 10/18/19 05:38 Hospitalist ROS - Review of Systems Constitutional: denies: fever, chills - Medication Medications: Active Medications Generic Name Dose Route Start Last Admin Trade Name Freq PRN Reason Stop Dose Admin Acetaminophen 650 mg 10/04/19 10:57 10/18/19 06:51 Tylenol PO 650 mg Q4H PRN Administration Headache/Fever/Mild Pain (1-3) Hydrocodone Bitart/Acetaminophen 1 tab 10/17/19 16:59 10/18/19 14:54 [place] 5/325 PO 1 tab Q4H PRN Administration Moderate Pain (4-6) Bisacodyl 10 mg 10/04/19 10:57 10/07/19 15:24 Dulcolax [place] 10 mg DAILYPRN PRN Administration Constipation Carbamide Perox/Anhydrous Glycerin 1 drop 10/16/19 21:00 10/18/19 08:58 Debrox 6.5% Otic EA EAR 1 drop BID TOO Administration Ciprofloxacin 500 mg 10/11/19 20:00 10/18/19 06:51 Cipro PO 500 mg 06,1999 TOO Administration Cyanocobalamin 1,000 mcg 10/05/19 09:00 10/18/19 08:58 Vitamin B-12 PO 1,000 mcg DAILY TOO Administration Famotidine 20 mg 10/05/19 09:00 10/18/19 08:57 Pepcid PO 20 mg DAILY TOO Administration Finasteride 5 mg 10/04/19 21:00 10/17/19 20:40 Proscar PO 5 mg QPM TOO Administration Folic Acid 1 mg 10/05/19 09:00 10/18/19 08:57 Folvite PO 1 mg DAILY TOO Administration Furosemide 40 mg 10/09/19 12:00 10/18/19 12:43 Lasix PO 40 mg 1200 TOO Administration Guaifenesin/Dextromethorphan 15 ml 10/04/19 10:57 10/08/19 13:10 Robitussin Dm PO 15 ml Q4H PRN Administration Cough Metoprolol Tartrate 25 mg 10/04/19 21:00 10/18/19 08:56 Lopressor PO 25 mg BID TOO Administration Saccharomyces Boulardii 250 mg 10/05/19 09:00 10/18/19 08:57 Florastor PO 250 mg DAILY TOO Administration Senna/Docusate Sodium 2 tab 10/04/19 10:57 10/14/19 14:38 Senokot S PO 2 tab BIDPRN PRN Administration Constipation Simvastatin 10 mg 10/04/19 21:00 10/17/19 20:39 Zocor PO 10 mg QPM TOO Administration Sodium Chloride 10 ml 10/04/19 18:10 10/10/19 09:21 Flush - Normal Saline IVF 10 ml PRN PRN Administration Saline Flush Spironolactone 25 mg 10/09/19 21:00 10/17/19 20:39 Aldactone PO 25 mg QPM TOO Administration Tamsulosin HCl 0.4 mg 10/04/19 21:00 10/18/19 08:57 Flomax PO 0.4 mg BID TOO Administration - Exam General Appearance: NAD, awake alert Eye: PERRL, anicteric sclera ENT: normocephalic atraumatic, no oropharyngeal lesions Neck: no JVD Heart: RRR, no murmur, no gallops, no rubs Respiratory: CTAB, no wheezes, no rales, no ronchi Gastrointestinal: soft, non-distended Gastrointestinal - other findings: umbilical hernia, still in hospital Extremities: no cyanosis, no clubbing, no edema Skin: normal turgor, no lesions, no rashes Neurological: cranial nerve grossly intact, normal sensation to touch, no focal deficits, no new deficit Hosp A/P (1) Urine retention Code(s): R33.9 - RETENTION OF URINE, UNSPECIFIED Status: Acute (2) UTI (urinary tract infection) Status: Acute Qualifiers: Urinary tract infection type: acute cystitis Hematuria presence: with hematuria Qualified Code(s): N30.01 - Acute cystitis with hematuria (3) Chronic diastolic heart failure Code(s): I50.32 - CHRONIC DIASTOLIC (CONGESTIVE) HEART FAILURE Status: Chronic (4) Hypertension Code(s): I10 - ESSENTIAL (PRIMARY) HYPERTENSION Status: Chronic Qualifiers: Hypertension type: essential hypertension Qualified Code(s): I10 - Essential (primary) hypertension (5) Anemia Code(s): D64.9 - ANEMIA, UNSPECIFIED Status: Chronic Qualifiers: Anemia type: unspecified type Qualified Code(s): D64.9 - Anemia, unspecified - Plan This is an 89 year old male who presented with fever of 102, high WBC. lethargy and admitted for sepsis from UTI * Sepsis secondary to UTI * Urinary retention secondary to BPH * S/p cystoscopy with suprapubic tube placement and dilation 10/17 - had temp of 102, WBC of 21 on admission. Blood cultures are negative, WBC is within normal range, UA was suspicious for UTI but no growth was seen. ID was consulted. - Plan is to get cipro for total of 6 weeks until 11/13 per infectious disease . - Dr. Ramirez had suprapubic catheter placed 10/15. S/p dilation with hematuria postop. COntinues to have hematuria, continue with CBI Chronic problems: * CHF- stable, continue Lasix * Hypertension- stable, continue Metoprolol and Spironolactone * Fall prior to admission- continue with PT who recommended rehab * Macrocytic Anemia- Hb 9.4, at baseline
[2019-10-18] MEDS: Simvastatin 5 MG TAB PO SCH (20:10)
[2019-10-18] MEDS: Spironolactone 25 MG TAB PO SCH (20:10)
[2019-10-18] MEDS: Finasteride 5 MG TAB PO SCH (20:10)
[2019-10-19] MEDS: HYDROcodone/Acetaminophen 5/325 mg Tablet PO PRN ×2 (04:35→21:23)
[2019-10-19 05:42] LABS: Band 3 % (5-11); Hemoglobin 10.2 g/dL (14.0-18.0); Lymphocytes 12 % (21-51); MDiff Complete? YES; Mean Corpuscular HGB CONC 33.6 g/dL (32.0-36.0); Mean Corpuscular Hemoglobin 38.7 pg (27.0-31.0); Mean Platelet Volume 8.7 fL (7.4-10.4); Monocytes 24 % (0-10); Neutrophil 61 % (42-75); Platelet Count 220 thou/uL (130-400); Platelet Morphology Comment Appears Adequate; RBC Distribution Width 13.2 % (11.5-14.5); Red Blood Cell (RBC) Count 2.62 mill/uL (4.70-6.10); White Blood Cell (WBC) Count 11.4 thou/uL (4.8-10.8)
[2019-10-19 05:46] LABS: ALT (SGPT) 22 U/L (8-55); AST (SGOT) 23 U/L (5-34); Albumin 3.9 g/dL (3.4-4.8); Alkaline Phosphatase 58 U/L (40-110); Anion Gap 17 mmol/L (10-20); BUN (Urea Nitrogen) 22 mg/dL (8.4-25.7); Bilirubin, Total 1.3 mg/dL (0.2-1.2); Calc. Creatinine Clearance 56 mL/min (70-130); Calcium 9.5 mg/dL (7.8-10.44); Carbon Dioxide 18 mmol/L (23-31); Chloride 102 mmol/L (98-107); Estimated GFR-MDRD 56; Globulin 3.7 g/dL (2.4-3.5); Glucose 134 mg/dL (83-110); Potassium 4.2 mmol/L (3.5-5.1); Protein, Total 7.6 g/dL (5.8-8.1); Sodium 133 mmol/L (136-145)
[2019-10-19] MEDS: Ciprofloxacin 500 MG TAB PO SCH (05:56)
--- NOTE | 2019-10-19 08:25 | PRG ---
DATE OF SERVICE: 10/19/2019 SUBJECTIVE: The patient is sleeping, sitter at bedside. Per sitter, he has been tugging and pulling on his Rangel catheter tubing. OBJECTIVE: VITAL SIGNS: Stable. He is afebrile. CBI intermittently flushed per nursing staff to clear hematuria/debris. ABDOMEN: Morbidly obese. Suprapubic tube is intact, there is some surrounding erythema and early purulent discharge. SP tube site was cleaned, secured. CBI held and will monitor for degree of hematuria. PERTINENT LABORATORY DATA: White count from 7.7 to 11, hemoglobin was 10.2, and platelet 220. Creatinine is 1.21, sodium 133. Blood culture and urine culture negative, currently on ciprofloxacin for Infectious Disease. IMPRESSION: 1. Mr. Roldan is an 89-year-old male with history of significant comorbidities, advanced age with significant enlargement of his prostate, trilobar, massively enlarged. 2. History of recurrent urinary tract infection. 3. 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 4. Postop day #2, status post cysto, suprapubic tube tract dilatation and SP tube placement. Mild leukocytosis. SP tube site concerning for early cellulitis. Wound care instructions provided to nursing staff b.i.d. I will conference with Dr. Benavidez, will add vancomycin. The patient is not a candidate to return to [facility]. Son has been informed about this on numerous occasions. He is to be transitioned to [facility]. Given that he has mild leukocytosis concerning for SP tube site infection will need to be monitored over the weekend. addendum: Called by nursing staff due to abdominal distention bulging of his large fascial defect, incisional hernia. CT obtained demonstrating no evidence of acute pathology of concern. Conference with Dr. Benavidez who agrees regarding vancomycin. Continue local wound care of SP tube. Updated son regarding clinical course, indications for observation over the weekend reviewed with family. He agrees Continue to titrate urine output to clear CBI p.r.n. Dr. Ma covering me this weekend. Continuous sitter at bedside, high risk of catheter removal. Urethral Rangel catheter will be removed by , if hematuria resolves Job ID: [id number] [facility]
[2019-10-19] MEDS: Cyanocobalamin (Vitamin B-12) 1,000 MCG TAB PO SCH (08:44)
[2019-10-19] MEDS: Famotidine 20 MG TAB PO SCH (08:44)
[2019-10-19] MEDS: Metoprolol Tartrate 25 MG TAB PO SCH ×2 (08:44→21:23)
[2019-10-19] MEDS: Saccharomyces boulardii 250 MG CAP PO SCH (08:44)
[2019-10-19] MEDS: Tamsulosin HCl 0.4 MG CAP PO SCH ×2 (08:44→21:23)
[2019-10-19] MEDS: Carbamide Peroxide 6.5% Otic Drops 15 ml Bottle EA EAR SCH ×2 (08:44→21:47)
[2019-10-19] MEDS: Folic Acid 1 MG TAB PO SCH (08:44)
[2019-10-19] MEDS ORDERED: Vancomycin HCl 1 GM in Premix Bag 1 BAG IVPB SCH (09:00)
[2019-10-19] MEDS: Vancomycin 1.5 GRAM/300 ML BAG 1.5 GM in Premix Bag 1 BAG IVPB SCH (09:00)
--- NOTE | 2019-10-19 10:24 | CT ---
Exam: Abdomen CT without contrast Pelvic CT without contrast HISTORY: Abdominal hernia. Status post suprapubic catheter placement. COMPARISON: 10/04/2019 FINDINGS: Abdomen CT: Lung bases:Small bilateral effusions with adjacent lung parenchymal changes likely representing atele ctasis. Heart size: Enlarged heart. No significant pericardial fluid. There is calcification of the mitral an nulus. There are coronary calcifications. Aorta: Atherosclerosis. Mild elongation. Solid organs: Limited evaluation of the absence of IV contrast. Grossly no solid organ abnormality. Lymph nodes: No gastrohepatic, retrocrural or periportal lymphadenopathy Gallbladder: Multiple focus of cholelithiasis near the neck of the gallbladder. No evidence of choles tasis. Mesentery: No mass, lymphadenopathy, free air or free fluid Kidneys: Stable hyperdensity in the left renal cortex. Stable hypodensity in the mid right renal marry ex. Bilaterally no evidence of obstructive uropathy. Alimentary canal: Limited evaluation of the absence of oral contrast. No evidence of bowel obstructio n. Ileocecal junction is unremarkable. Scattered fecal material in a nondistended, nondilated colon. Acute abdominal wall: There is a ventral abdominal wall hernia containing segments of small bowel and colon through the defect. Hernia diameter is 11.[address] PELVIS: No mass, adenopathy, free air or free fluid. There is evidence of a Rangel catheter as well as a supr apubic catheter. The urinary bladder is decompressed. There is diffuse bladder wall thickening. There is perivesicular stranding. Markedly enlarged prostate gland is redemonstrated. Osseous structures: No lytic or blastic lesions IMPRESSION: 1. Interval placement of a suprapubic catheter. There is also evidence of a Rangel catheter. Urinary b ladder is decompressed. There is bladder wall mucosal thickening. 2. Markedly enlarged prostate gland 3. Ventral abdominal wall hernia, similar to the previous examination. No evidence of associated sara l incarceration, strangulation or resultant bowel obstruction. Results study discussed with Dr. Ramirez
[2019-10-19] MEDS: Furosemide 40 MG TAB PO SCH (12:40)
--- NOTE | 2019-10-19 15:02 | PRG ---
DATE OF SERVICE: 10/19/2019 SUBJECTIVE: Mr. Roldan has developed worsening delirium since this morning. OBJECTIVE: VITAL SIGNS: His vital signs showed T-max 99.8, BP 130/56. LUNGS: With a few faint basilar inspiratory crackles. HEART: S1, S2 regular rate. ABDOMEN: Not distended. There is mild erythema surrounding the exit site of the suprapubic catheter, little bit of drainage which is serosanguineous. NEUROLOGIC: Examination shows the patient to be delirious. He knows his name, but not where he is. He will answer questions but has very limited vocabulary and clear-cut word-finding problems. LABORATORY DATA: White cell count is up to 11.4, hemoglobin 10.2, platelets 220 with 61% neutrophils, his monocytes went up to 24%. The patient had an abdomen and pelvis CT and there was decompressed urinary bladder with wall mucosal thickening, markedly enlarged prostate gland. He is currently on hydrocodone, Dulcolax, Cipro, and vancomycin has been started. ASSESSMENT AND DISCUSSION: Cognitive dysfunction, benign prostatic hypertrophy, not a candidate for any intervention other than the diversion with a suprapubic cystostomy which was carried out recently. Now there is some concern with the inflammatory changes that are developing around the exit site. He has become more delirious. The ciprofloxacin can be associated with CHARACTER ACTOR changes and we will go ahead and switch him to Rocephin. There are some issues associated with concern with swallowing function as well in view of his altered mental status. The delirium is going to be a problem going forward. All the medications that might have CHARACTER ACTOR side effects, which should be withheld if possible. Delirium and the patient's of his age usually tend to represent a difficult management problem which frequently will delay discharge planning. Job ID: [id number]
[2019-10-19] MEDS: cefTRIAXone\\ROCEPHIN 1 GM in Sodium Chloride 0.9% 100 ML IVPB SCH (15:24)
--- NOTE | 2019-10-19 17:32 | PDOC.HOSPP ---
- Subjective Encounter Date: 10/19/19 Encounter Time: 17:00 Subjective: The patient according to hawa had an event this afternoon where his hands were shaking and it looked like he was having a seizure. When nurse came shaking stop but patient had a blank stare. Patient appeared mcnally per nurse and manual BP 80. It quickly went back up to 120's Patient has no complaints of abdominal pain, nausea, vomiting. There was concern for cellulitis at suprapubic tube site and patient was started on vanc and ceftriaxone - Objective Vital Signs & Weight: Vital Signs (12 hours) Temp Pulse Resp BP BP Pulse Ox 10/19/19 16:11 98.5 F 77 16 150/62 H 93 L 10/19/19 11:44 98.3 F 73 16 135/56 L 93 L 10/19/19 08:00 98.5 F 65 16 134/52 L 94 L Weight Admit Weight 211 lb Weight 211 lb I&O: 10/18/19 10/19/19 10/20/19 06:59 06:59 06:59 Output Total 950 1825 Balance -950 -1825 Result Diagrams: 10/19/19 05:12 10/19/19 17:46 Hospitalist ROS - Review of Systems Constitutional: denies: fever, chills ENT: denies: ear pain Respiratory: denies: dry - Medication Medications: Active Medications Generic Name Dose Route Start Last Admin Trade Name Freq PRN Reason Stop Dose Admin Acetaminophen 650 mg 10/04/19 10:57 10/18/19 06:51 Tylenol PO 650 mg Q4H PRN Administration Headache/Fever/Mild Pain (1-3) Hydrocodone Bitart/Acetaminophen 1 tab 10/17/19 16:59 10/19/19 04:35 [place] 5/325 PO 1 tab Q4H PRN Administration Moderate Pain (4-6) Bisacodyl 10 mg 10/04/19 10:57 10/07/19 15:24 Dulcolax [place] 10 mg DAILYPRN PRN Administration Constipation Carbamide Perox/Anhydrous Glycerin 1 drop 10/16/19 21:00 10/19/19 08:44 Debrox 6.5% Otic EA EAR 1 drop BID TOO Administration Cyanocobalamin 1,000 mcg 10/05/19 09:00 10/19/19 08:44 Vitamin B-12 PO 1,000 mcg DAILY TOO Administration Famotidine 20 mg 10/05/19 09:00 10/19/19 08:44 Pepcid PO 20 mg DAILY TOO Administration Finasteride 5 mg 10/04/19 21:00 10/18/19 20:10 Proscar PO 5 mg QPM TOO Administration Folic Acid 1 mg 10/05/19 09:00 10/19/19 08:44 Folvite PO 1 mg DAILY TOO Administration Furosemide 40 mg 10/09/19 12:00 10/19/19 12:40 Lasix PO 40 mg 1200 TOO Administration Guaifenesin/Dextromethorphan 15 ml 10/04/19 10:57 10/08/19 13:10 Robitussin Dm PO 15 ml Q4H PRN Administration Cough Vancomycin HCl 1.5 gm/ Device 300 mls @ 200 mls/hr 10/19/19 09:00 10/19/19 09 :00 IVPB 300 mls Q24HR TOO Administration Ceftriaxone Sodium 1 gm/ 100 mls @ 200 mls/hr 10/19/19 15:00 10/19/19 15:24 Sodium Chloride IVPB 100 mls Q24HR TOO Administration Metoprolol Tartrate 25 mg 10/04/19 21:00 10/19/19 08:44 Lopressor PO 25 mg BID TOO Administration Saccharomyces Boulardii 250 mg 10/05/19 09:00 10/19/19 08:44 Florastor PO 250 mg DAILY TOO Administration Senna/Docusate Sodium 2 tab 10/04/19 10:57 10/14/19 14:38 Senokot S PO 2 tab BIDPRN PRN Administration Constipation Simvastatin 10 mg 10/04/19 21:00 10/18/19 20:10 Zocor PO 10 mg QPM TOO Administration Sodium Chloride 10 ml 10/04/19 18:10 10/10/19 09:21 Flush - Normal Saline IVF 10 ml PRN PRN Administration Saline Flush Spironolactone 25 mg 10/09/19 21:00 10/18/19 20:10 Aldactone PO 25 mg QPM TOO Administration Tamsulosin HCl 0.4 mg 10/04/19 21:00 10/19/19 08:44 Flomax PO 0.4 mg BID TOO Administration - Exam General Appearance: NAD, awake alert Eye: PERRL, anicteric sclera ENT: normocephalic atraumatic, no oropharyngeal lesions Neck: supple, symmetric, no JVD Heart: RRR, no murmur, no gallops, no rubs Respiratory: CTAB, no wheezes, no rales, no ronchi Gastrointestinal: soft, non-tender, non-distended, normal bowel sounds Gastrointestinal - other findings: suprapubic tube in place. Urethral gavin. CBI clearing Extremities: no cyanosis, no clubbing, no edema Skin: normal turgor, no lesions, no rashes Neurological: cranial nerve grossly intact, normal sensation to touch, no new deficit Hosp A/P (1) Urine retention Code(s): R33.9 - RETENTION OF URINE, UNSPECIFIED Status: Acute (2) UTI (urinary tract infection) Status: Acute Qualifiers: Urinary tract infection type: acute cystitis Hematuria presence: with hematuria Qualified Code(s): N30.01 - Acute cystitis with hematuria (3) Chronic diastolic heart failure Code(s): I50.32 - CHRONIC DIASTOLIC (CONGESTIVE) HEART FAILURE Status: Chronic (4) Hypertension Code(s): I10 - ESSENTIAL (PRIMARY) HYPERTENSION Status: Chronic Qualifiers: Hypertension type: essential hypertension Qualified Code(s): I10 - Essential (primary) hypertension (5) Anemia Code(s): D64.9 - ANEMIA, UNSPECIFIED Status: Chronic Qualifiers: Anemia type: unspecified type Qualified Code(s): D64.9 - Anemia, unspecified - Plan This is an 89 year old male who presented with fever of 102, high WBC. lethargy and admitted for sepsis from UTI * Sepsis secondary to UTI * Urinary retention secondary to BPH * S/p cystoscopy with suprapubic tube placement and dilation 10/17 - had temp of 102, WBC of 21 on admission. Blood cultures are negative, WBC is within normal range, UA was suspicious for UTI but no growth was seen. ID was consulted. - Dr. Ramirez had suprapubic catheter placed 10/15. S/p dilation with hematuria postop. On CBI, hematuria cearing - Patient was getting cipro for total of 6 weeks until 11/13 per infectious disease . He was restarted on IV vanc and ceftriaxone 10/19 due to cellulitis near suprapubic tube site #Transient hypotension/ possible vasovagal event #Questionable seizure #Hyponatremia - will hold lasix, hydrate with IV fluids gently for 1L - stat prolactin * Hypertension- stable, continue Metoprolol and hold Spironolactone * Fall prior to admission- continue with PT who recommended rehab * Macrocytic Anemia- Hb 9.8, at baseline Dispo: needs rehab
[2019-10-19 18:20] LABS: Anion Gap 16 mmol/L (10-20); BUN (Urea Nitrogen) 22 mg/dL (8.4-25.7); Calc. Creatinine Clearance 50 mL/min (70-130); Calcium 9.4 mg/dL (7.8-10.44); Carbon Dioxide 19 mmol/L (23-31); Chloride 101 mmol/L (98-107); Estimated GFR-MDRD 50; Glucose 150 mg/dL (83-110); Sodium 132 mmol/L (136-145)
[2019-10-19] MEDS: levETIRAcetam 500 MG TAB PO SCH (21:23)
[2019-10-19] MEDS: Simvastatin 5 MG TAB PO SCH (21:23)
[2019-10-19] MEDS: Finasteride 5 MG TAB PO SCH (21:23)
[2019-10-19] MEDS: Sodium Chloride 0.9% 1,000 ML IV SCH (21:47)
[2019-10-20] MEDS: Sodium Chloride 0.9% 1,000 ML IV SCH ×2 (06:01→20:10)
[2019-10-20 06:11] LABS: Hemoglobin 9.2 g/dL (14.0-18.0); Mean Corpuscular HGB CONC 33.8 g/dL (32.0-36.0); Mean Platelet Volume 8.9 fL (7.4-10.4); Platelet Count 219 thou/uL (130-400); RBC Distribution Width 12.9 % (11.5-14.5); Red Blood Cell (RBC) Count 2.36 mill/uL (4.70-6.10); White Blood Cell (WBC) Count 11.6 thou/uL (4.8-10.8)
[2019-10-20 06:32] LABS: ALT (SGPT) 17 U/L (8-55); AST (SGOT) 17 U/L (5-34); Albumin 3.6 g/dL (3.4-4.8); Alkaline Phosphatase 57 U/L (40-110); Anion Gap 14 mmol/L (10-20); BUN (Urea Nitrogen) 24 mg/dL (8.4-25.7); Bilirubin, Total 0.9 mg/dL (0.2-1.2); Calc. Creatinine Clearance 54 mL/min (70-130); Calcium 9.1 mg/dL (7.8-10.44); Carbon Dioxide 23 mmol/L (23-31); Chloride 102 mmol/L (98-107); Estimated GFR-MDRD 54; Globulin 3.5 g/dL (2.4-3.5); Glucose 117 mg/dL (83-110); Potassium 3.7 mmol/L (3.5-5.1); Protein, Total 7.1 g/dL (5.8-8.1); Sodium 135 mmol/L (136-145)
[2019-10-20 06:49] LABS: Band 10 % (5-11); Eosinophils 1 % (0-10); Lymphocytes 11 % (21-51); MDiff Complete? YES; Macrocytosis MODERATE=16-30 cells (100X) (0-5/hpf); Monocytes 27 % (0-10); Myelocyte 3 % (0-0); Neutrophil 48 % (42-75); Platelet Morphology Comment Appears Adequate; Polychromasia SLIGHT = 2-3 cells (100X) (0-2/hpf)
[2019-10-20] MEDS: Saccharomyces boulardii 250 MG CAP PO SCH (08:44)
[2019-10-20] MEDS: Famotidine 20 MG TAB PO SCH (08:44)
[2019-10-20] MEDS: Metoprolol Tartrate 25 MG TAB PO SCH ×2 (08:44→20:11)
[2019-10-20] MEDS: Tamsulosin HCl 0.4 MG CAP PO SCH ×2 (08:44→20:11)
[2019-10-20] MEDS: Folic Acid 1 MG TAB PO SCH (08:44)
[2019-10-20] MEDS: Cyanocobalamin (Vitamin B-12) 1,000 MCG TAB PO SCH (08:44)
[2019-10-20] MEDS: Vancomycin 1.5 GRAM/300 ML BAG 1.5 GM in Premix Bag 1 BAG IVPB SCH (08:45)
[2019-10-20] MEDS: Carbamide Peroxide 6.5% Otic Drops 15 ml Bottle EA EAR SCH ×2 (08:45→20:11)
[2019-10-20] MEDS: levETIRAcetam 500 MG TAB PO SCH ×2 (08:45→20:11)
--- NOTE | 2019-10-20 09:19 | PRG ---
DATE OF SERVICE: 10/20/2019 SUBJECTIVE: The patient is seen and examined at the bedside. There is a sitter in the room during my visit. The patient got quite agitated during my visit and tried to hit me. He does not wants me to examine him at all. He is able to tell me about his son who is a firemen and who lives in [place]. Also, he says that his many years ago of heart attack. OBJECTIVE: VITAL SIGNS: Blood pressure is 142/61, pulse is 63, temperature is 98.3, respiratory rate is 18, O2 saturation is 94% on room air. HEENT: His head is atraumatic and normocephalic. Oral mucosa is dry. LUNGS AND HEART: I am not able to examine him because he is very agitated by of his abdomen. ABDOMEN: Suprapubic catheter is in place and the site of entry is covered with dressing. Also, he has incarcerated hernia in the mid abdomen. NEUROLOGICAL: I am not able to examine him appropriately because of his aggressive behavior, but he is able to move his all 4 extremities. He is able to answer my simple questions, but definitely he does not want me to touch him. LABORATORY DATA: Labs showed white count of 11.6, hemoglobin of 9.2, hematocrit 27.2, platelet count is 219. Sodium of 135, potassium 3.7, chloride 102, CO2 of 23, BUN 24, creatinine 1.25. Glycemia is ranging from 117-150. The rest of chemistry is within normal limits. Prolactin level was 21.79 yesterday. IMPRESSION: 1. Urinary retention, status post suprapubic catheter placement. 2. Urinary tract infection, but with negative urine cultures. 3. Chronic diastolic heart failure. 4. Hypertension. 5. Anemia. DISCUSSION: The patient was admitted to the hospital with a white count at 21,000, and fever. His white count normalized but recently mildly increased. Apparently, there was a concern about some cellulitis around the suprapubic catheter placement and ID change, recommendation to switch him to vancomycin and Rocephin to have a good coverage for this possible bacterial infection. He does not have signs of a delirium, but definitely he is quite agitated during my visit, I will try to avoid any centrally acting agents. We will continue his gentle hydration since his creatinine is improved, but clinically he still looks very dry. Yesterday, he was placed on Keppra for possible seizures. We will continue that but most likely this will need to be discontinued later at the time of senior care facility transfer where he needs to be transferred for PT and OT. Job ID: [id number]
[2019-10-20] MEDS: cefTRIAXone\\ROCEPHIN 1 GM in Sodium Chloride 0.9% 100 ML IVPB SCH (14:12)
--- NOTE | 2019-10-20 17:10 | PRG ---
DATE OF SERVICE: 10/20/2019 SUBJECTIVE: The patient is sleeping comfortably. He did have a seizure overnight and apparently was started on Keppra. Today, he has slept for most of the day and is still very weak and somewhat confused, but otherwise his daughter who is at bedside states that he has been doing fairly well without any significant complaints. Of note, his CBI was stopped. OBJECTIVE: VITAL SIGNS: Temperature 97.4, pulse 72, respirations 18, blood pressure 142/64, and saturations 93% on room air. GENERAL: Sleeping comfortably, did awaken during examination and does not report any pain. CARDIOVASCULAR: Regular rate and rhythm. CHEST: No increased work of breathing. ABDOMEN: Soft, nontender, nondistended. SP tube is currently dressed. Dressing was taken down and there is still an indurated area around the SP tube site, but erythema looks like it has lightened up quite significantly. There is very minimal mucopurulent discharge around the SP tube site. The catheter in the Rangel is very clear, extremely light pink, without clots. EXTREMITIES: 1+ edema. LABORATORY EVALUATION: The full set of labs is in the [email or web address] system, which I have reviewed. Of note, the patient's white count is 11.6, hemoglobin 9.2. Creatinine is 1.25. ASSESSMENT AND PLAN: An 89-year-old white male with severe BPH and urinary retention, status post SP tube placement with gross hematuria. He currently is on CBI, which has apparently been stopped with completely clear urine. I do think the urethral Rangel can probably be removed tomorrow and the SP tube left to gravity drainage. We will monitor overnight to ensure that he does not have any further episodes of bleeding and if the urine is clear tomorrow, we will plan for Rangel catheter removal through the urethra and just keeping the SP tube to gravity drainage. His antibiotics should be continued as he does appear to have a cellulitis around his SP tube site, but this seems to be getting better clinically and by laboratory evaluation. If the patient indeed did have a seizure, I do not see any imaging ordered for his brain, that probably needs to be addressed. I have talked to the daughter and stated that this should be addressed to the Hospitalist Service as this is really not my area of specialty and I probably would not be the right doctor to completely workup a seizure. This could either be addressed with his primary care doctor, with the hospitalist currently in the hospital, or with a Neurology consult. I will continue to follow along and make recommendations until Dr. Ramirez returns on Tuesday. Job ID: [id number]
[2019-10-20] MEDS: Simvastatin 5 MG TAB PO SCH (20:11)
[2019-10-20] MEDS: Finasteride 5 MG TAB PO SCH (20:11)
[2019-10-21 05:31] LABS: ALT (SGPT) 22 U/L (8-55); AST (SGOT) 22 U/L (5-34); Albumin 3.3 g/dL (3.4-4.8); Alkaline Phosphatase 44 U/L (40-110); Anion Gap 12 mmol/L (10-20); BUN (Urea Nitrogen) 21 mg/dL (8.4-25.7); Bilirubin, Total 0.6 mg/dL (0.2-1.2); Calc. Creatinine Clearance 78 mL/min (70-130); Calcium 8.7 mg/dL (7.8-10.44); Carbon Dioxide 20 mmol/L (23-31); Chloride 108 mmol/L (98-107); Estimated GFR-MDRD 83; Globulin 3.3 g/dL (2.4-3.5); Glucose 99 mg/dL (83-110); Potassium 3.6 mmol/L (3.5-5.1); Protein, Total 6.6 g/dL (5.8-8.1); Sodium 136 mmol/L (136-145)
[2019-10-21 05:46] LABS: Band 4 % (5-11); Hemoglobin 8.6 g/dL (14.0-18.0); Hypochromia SLIGHT = 6-15 cells (100X) (0-5/hpf); Lymphocytes 31 % (21-51); MDiff Complete? YES; Macrocytosis MODERATE=16-30 cells (100X) (0-5/hpf); Mean Corpuscular HGB CONC 34.8 g/dL (32.0-36.0); Mean Corpuscular Hemoglobin 40.1 pg (27.0-31.0); Mean Platelet Volume 8.8 fL (7.4-10.4); Metamyelocyte 3 % (0-0); Monocytes 19 % (0-10); Neutrophil 43 % (42-75); Platelet Count 206 thou/uL (130-400); Platelet Morphology Comment Appears Adequate; RBC Distribution Width 12.8 % (11.5-14.5); Red Blood Cell (RBC) Count 2.14 mill/uL (4.70-6.10); White Blood Cell (WBC) Count 6.8 thou/uL (4.8-10.8)
[2019-10-21 09:11] LABS: Vancomycin, Trough 12.5 ug/mL
[2019-10-21] MEDS: Tamsulosin HCl 0.4 MG CAP PO SCH ×2 (09:13→20:10)
[2019-10-21] MEDS: Cyanocobalamin (Vitamin B-12) 1,000 MCG TAB PO SCH (09:13)
[2019-10-21] MEDS: levETIRAcetam 500 MG TAB PO SCH (09:13)
[2019-10-21] MEDS: Famotidine 20 MG TAB PO SCH (09:13)
[2019-10-21] MEDS: Folic Acid 1 MG TAB PO SCH (09:14)
[2019-10-21] MEDS: Metoprolol Tartrate 25 MG TAB PO SCH ×2 (09:14→20:10)
[2019-10-21] MEDS: Carbamide Peroxide 6.5% Otic Drops 15 ml Bottle EA EAR SCH ×2 (09:15→20:10)
[2019-10-21] MEDS: Saccharomyces boulardii 250 MG CAP PO SCH (09:19)
[2019-10-21] MEDS: Vancomycin 1.5 GRAM/300 ML BAG 1.5 GM in Premix Bag 1 BAG IVPB SCH (09:19)
[2019-10-21] MEDS: Sodium Chloride 0.9% 1,000 ML IV SCH ×2 (09:20→11:58)
--- NOTE | 2019-10-21 10:41 | CON ---
DATE OF CONSULTATION: 10/21/2019 CONSULTING PHYSICIAN: Hospitalist Service. IMPRESSION: Mild dementia with some agitation. PLAN: 1. Discontinue Keppra. 2. Lamictal 100 mg daily. HISTORY OF PRESENT ILLNESS: Mr. Roldan is an 89-year-old gentleman, who came in due to ongoing urinary tract issues. He apparently has an infection and some other ongoing problems. On reviewing his H and P and hospital course, he has had some persistent disorientation. Nurses report that he seems to keep up with politics fairly well but is not oriented otherwise. On most occasions, he got a bit agitated with the hospitalists. He apparently was started on Keppra due to some question of a possible seizure. The patient at this time is without any particular complaints. He was sitting up in the bed and getting shaved by the nurse. He is quite cooperative and reasonably pleasant at this point. PAST MEDICAL HISTORY: Otherwise, unremarkable. FAMILY HISTORY: Noncontributory. MEDICATIONS: List reviewed. SOCIAL HISTORY: No tobacco or alcohol. He reportedly lives in [place]. He has a son down in [place]. REVIEW OF SYSTEMS: Ten system review of systems is otherwise negative. PHYSICAL EXAMINATION: VITAL signs: Have been stable. He is afebrile. HEENT: Pupils are equal and reactive. Conjunctivae are clear. Oropharynx clear. NECK: Supple. EXTREMITIES: No cyanosis or edema. NEUROLOGIC: He was alert and oriented to person and place. He follow commands appropriately. Speech is fluent and clear. He had nothing focal on exam. He had good strength bilaterally. Sensation was intact. No abnormal movements were seen. SUMMARY: This is an elderly gentleman with some mild dementia and apparent agitation. I would agree with the possibility of Keppra could be a problem for him. Lamictal is more mood stabilizing and may be a better choice. Job ID: [id number]
--- NOTE | 2019-10-21 12:04 | PRG ---
DATE OF SERVICE: 10/21/2019 SUBJECTIVE: The patient had a good night. There were no obvious events that occurred. No seizure activity. The patient reports no complaints. OBJECTIVE: VITAL SIGNS: Temperature 97.3, pulse 60, respirations 15, blood pressure 117/43, saturation 95% on room air. GENERAL: No apparent distress, sleeping, did wake up during examination. Does not report any discomfort. CARDIOVASCULAR: Regular rate and rhythm. ABDOMEN: Soft, nontender, nondistended. SP tube in good location with shrinking amount of induration and erythema surrounding the SP tube site. No significant purulence, although the patient still has some tenderness in this location. Urethral Rangel is in place draining extremely clear urine which is completely yellow. CBI is currently off. EXTREMITIES: No edema. LABORATORY DATA: White count today is 6.8, hemoglobin 8.6, creatinine of 0.87. ASSESSMENT AND PLAN: An 89-year-old white male with urinary retention secondary to severe BPH with prior gross hematuria, which has now resolved. At this point, I do think the urethral Rangel can be removed and the patient can have his SP tube connected to gravity drainage. Regarding his suprapubic cellulitis, this seems to be improving with the vancomycin and antibiotic therapy. This should be continued, but the dressing has not been changed and I would recommend daily dressing changes to promote healthy skin gus and prevent bacterial overgrowth. I will make orders for this. Dr. Ramirez will resume care of her patient tomorrow and will handle the long-term care of this patient. Job ID: [id number]
--- NOTE | 2019-10-21 13:21 | PRG ---
DATE OF SERVICE: 10/21/2019 SUBJECTIVE: The patient is seen and examined at the bedside. He is significantly improved since yesterday. His mental condition improved and he is able to converse with me. He does not try to hit me aggressive like yesterday. He apologized for his behavior. OBJECTIVE: VITAL SIGNS: Blood pressure is 117/43, pulse is 60, temperature is 97.3, respirations 15, and O2 saturation is 95% on room air. HEENT: His head is atraumatic and normocephalic. Sclerae are nonicteric. Conjunctivae pinkish. Oral mucosa is still dry. LUNGS: Clear. HEART: S1 and S2, somewhat irregular. No S3. No S4. No any murmur. ABDOMEN: Soft. The suprapubic catheter is in place. The area around the point of entry is somewhat erythematous. Bowel sounds are present. EXTREMITIES: No clubbing, cyanosis, or edema. NEUROLOGIC: He follows my commands. He moves his all 4 extremities. There are no any motor deficits. LABORATORY DATA: Labs showed white count of 6.8, hemoglobin 8.6, hematocrit 24.8, platelet count is 206. Sodium of 136, potassium 3.6, chloride 108, CO2 of 20, BUN 21, creatinine 0.87, albumin 3.3 and the rest of chemistry is within normal limits. Vancomycin trough is 12.5. IMPRESSION: 1. Urinary retention, status post suprapubic catheter placement. 2. Urinary tract infection, but with negative urine cultures. 3. Chronic diastolic heart failure. 4. Hypertension. 5. Anemia. 6. Dementia with aggressive behavior. 7. Cellulitis of the skin around the suprapubic catheter entry. 8. Possible seizures. PLAN: The patient was seen by Dr. Perrin for Neurology evaluation. He recommends Lamictal 100 mg daily instead of Keppra. The patient will continue on the vancomycin and Rocephin as per ID recommendation. His mental condition significantly improved. We will contact Dr. Benavidez for further recommendation of his antibiotic therapy and he will be set up for a transfer to half-way unit for PT and OT. Job ID: [id number]
[2019-10-21] MEDS: cefTRIAXone\\ROCEPHIN 1 GM in Sodium Chloride 0.9% 100 ML IVPB SCH (14:14)
[2019-10-21] MEDS: HYDROcodone/Acetaminophen 5/325 mg Tablet PO PRN (14:16)
[2019-10-21] MEDS: Vancomycin HCl 1 GM in Premix Bag 1 BAG IVPB SCH (20:06)
[2019-10-21] MEDS: Finasteride 5 MG TAB PO SCH (20:10)
[2019-10-21] MEDS: Simvastatin 5 MG TAB PO SCH (20:10)
[2019-10-22 05:24] LABS: ALT (SGPT) 22 U/L (8-55); AST (SGOT) 23 U/L (5-34); Albumin 3.2 g/dL (3.4-4.8); Alkaline Phosphatase 43 U/L (40-110); Anion Gap 12 mmol/L (10-20); BUN (Urea Nitrogen) 15 mg/dL (8.4-25.7); Bilirubin, Total 0.5 mg/dL (0.2-1.2); Calc. Creatinine Clearance 84 mL/min (70-130); Calcium 8.6 mg/dL (7.8-10.44); Carbon Dioxide 19 mmol/L (23-31); Chloride 110 mmol/L (98-107); Estimated GFR-MDRD 90; Globulin 3.2 g/dL (2.4-3.5); Glucose 97 mg/dL (83-110); Potassium 3.7 mmol/L (3.5-5.1); Protein, Total 6.4 g/dL (5.8-8.1); Sodium 137 mmol/L (136-145)
[2019-10-22 05:36] LABS: Band 4 % (5-11); Hemoglobin 8.4 g/dL (14.0-18.0); Lymphocytes 32 % (21-51); MDiff Complete? YES; Mean Corpuscular HGB CONC 32.6 g/dL (32.0-36.0); Mean Corpuscular Hemoglobin 37.9 pg (27.0-31.0); Mean Platelet Volume 8.5 fL (7.4-10.4); Metamyelocyte 3 % (0-0); Monocytes 20 % (0-10); Neutrophil 41 % (42-75); Platelet Count 209 thou/uL (130-400); Platelet Morphology Comment Appears Adequate; RBC Distribution Width 12.9 % (11.5-14.5); Red Blood Cell (RBC) Count 2.21 mill/uL (4.70-6.10); White Blood Cell (WBC) Count 5.1 thou/uL (4.8-10.8)
[2019-10-22] MEDS: Sodium Chloride 0.9% 1,000 ML IV SCH (08:11)
[2019-10-22] MEDS: Vancomycin HCl 1 GM in Premix Bag 1 BAG IVPB SCH ×2 (08:11→20:25)
[2019-10-22] MEDS: Cyanocobalamin (Vitamin B-12) 1,000 MCG TAB PO SCH (08:12)
[2019-10-22] MEDS: Saccharomyces boulardii 250 MG CAP PO SCH (08:12)
[2019-10-22] MEDS: Metoprolol Tartrate 25 MG TAB PO SCH ×2 (08:12→20:25)
[2019-10-22] MEDS: Carbamide Peroxide 6.5% Otic Drops 15 ml Bottle EA EAR SCH ×2 (08:12→20:25)
[2019-10-22] MEDS: lamoTRIgine 100 MG TAB PO SCH (08:12)
[2019-10-22] MEDS: Folic Acid 1 MG TAB PO SCH (08:12)
[2019-10-22] MEDS: Famotidine 20 MG TAB PO SCH (08:12)
[2019-10-22] MEDS: Tamsulosin HCl 0.4 MG CAP PO SCH ×2 (08:12→20:25)
--- NOTE | 2019-10-22 08:51 | PRG ---
DATE OF SERVICE: 10/22/2019 SUBJECTIVE: The patient is awake, confused, sitter at bedside, events over the weekend reviewed. Urine output clear. Urethral Rangel catheter removed. Remains on vancomycin and ciprofloxacin. OBJECTIVE: Vital signs are stable. Urine output 800 mL per suprapubic tube. Abdomen, large ventral incisional hernia as previous. No rigidity. No rebound. Suprapubic tube site demonstrates surrounding erythema remains, however, improved. Purulent discharge present but improved. The patient is currently on Rocephin and vancomycin. PERTINENT LABORATORY DATA: White count 6.8, hemoglobin 8.6, creatinine 0.8. IMPRESSION AND PLAN: Mr. Roldan is an 89-year-old male with; 1. 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 2. Current admission due to urosepsis, status post suprapubic tube. 3. Suprapubic tube site with evidence of cellulitis, currently on vancomycin. 4. History of urinary tract infection, on Rocephin per Infectious Disease. Disposition likely to long-term, [facility]. However, I would like his suprapubic tube site to improve prior to discharge. Long-term antibiotic regimen will be dictated by Dr. Benavidez. We will need to clarify outpatient antibiotic regimen regarding suprapubic tube site cellulitis in conjunction with history of urosepsis. Continue SP tube wound care, sitter remains at bedside. Anticipate patient can be transferred to long-term sometime this week when his SP tube site has improved. Job ID: [id number] [facility]
[2019-10-22] MEDS: Senokot S 8.6-50 MG TAB PO PRN (09:28)
[2019-10-22] MEDS: cefTRIAXone\\ROCEPHIN 1 GM in Sodium Chloride 0.9% 100 ML IVPB SCH (14:17)
[2019-10-22] MEDS: Simvastatin 5 MG TAB PO SCH (20:24)
[2019-10-22] MEDS: Finasteride 5 MG TAB PO SCH (20:25)
--- NOTE | 2019-10-22 20:33 | PDOC.HOSPP ---
- Subjective Encounter Date: 10/22/19 Encounter Time: 13:00 Subjective: Still confused. Son states much improved. Suprapubic site intact and clean. No overnight issues. - Objective Vital Signs & Weight: Vital Signs (12 hours) Temp Pulse Resp BP Pulse Ox 10/22/19 15:44 97.5 F L 60 18 131/54 L 95 10/22/19 11:04 97.6 F 60 16 143/58 H 98 Weight Admit Weight 211 lb Weight 211 lb I&O: 10/21/19 10/22/19 10/23/19 06:59 06:59 06:59 Intake Total 3200 1845 1690 Output Total 1675 1800 1400 Balance 1525 45 290 Result Diagrams: 10/22/19 04:47 10/22/19 04:47 Hospitalist ROS - Review of Systems ROS unobtainable: due to mental status - Medication Medications: Active Medications Generic Name Dose Route Start Last Admin Trade Name Freq PRN Reason Stop Dose Admin Acetaminophen 650 mg 10/04/19 10:57 10/18/19 06:51 Tylenol PO 650 mg Q4H PRN Administration Headache/Fever/Mild Pain (1-3) Hydrocodone Bitart/Acetaminophen 1 tab 10/17/19 16:59 10/21/19 14:16 [place] 5/325 PO 1 tab Q4H PRN Administration Moderate Pain (4-6) Hydrocodone Bitart/Acetaminophen 2 tab 10/17/19 16:59 10/21/19 00:17 [place] 5/325 PO 2 tab Q4H PRN Administration Severe Pain (7-10) Bisacodyl 10 mg 10/04/19 10:57 10/07/19 15:24 Dulcolax [place] 10 mg DAILYPRN PRN Administration Constipation Carbamide Perox/Anhydrous Glycerin 1 drop 10/16/19 21:00 10/22/19 20:25 Debrox 6.5% Otic EA EAR 1 drop BID TOO Administration Cyanocobalamin 1,000 mcg 10/05/19 09:00 10/22/19 08:12 Vitamin B-12 PO 1,000 mcg DAILY TOO Administration Famotidine 20 mg 10/05/19 09:00 10/22/19 08:12 Pepcid PO 20 mg DAILY TOO Administration Finasteride 5 mg 10/04/19 21:00 10/22/19 20:25 Proscar PO 5 mg QPM TOO Administration Folic Acid 1 mg 10/05/19 09:00 10/22/19 08:12 Folvite PO 1 mg DAILY TOO Administration Guaifenesin/Dextromethorphan 15 ml 10/04/19 10:57 10/08/19 13:10 Robitussin Dm PO 15 ml Q4H PRN Administration Cough Ceftriaxone Sodium 1 gm/ 100 mls @ 200 mls/hr 10/19/19 15:00 10/22/19 14:17 Sodium Chloride IVPB 100 mls Q24HR TOO Administration Vancomycin HCl 1 gm/ Device 200 mls @ 200 mls/hr 10/21/19 21:00 10/22/19 20: 25 IVPB 200 mls 0900,2100 TOO Administration Sodium Chloride 1,000 mls @ 50 mls/hr 10/21/19 11:18 10/22/19 08:11 Normal Saline 0.9% IV 1,000 mls .Q20H TOO Administration Lamotrigine 100 mg 10/22/19 09:00 10/22/19 08:12 Lamictal PO 100 mg DAILY TOO Administration Metoprolol Tartrate 25 mg 10/04/19 21:00 10/22/19 20:25 Lopressor PO 25 mg BID TOO Administration Saccharomyces Boulardii 250 mg 10/05/19 09:00 10/22/19 08:12 Florastor PO 250 mg DAILY TOO Administration Senna/Docusate Sodium 2 tab 10/04/19 10:57 10/22/19 09:28 Senokot S PO 2 tab BIDPRN PRN Administration Constipation Simvastatin 10 mg 10/04/19 21:00 10/22/19 20:24 Zocor PO 10 mg QPM TOO Administration Tamsulosin HCl 0.4 mg 10/04/19 21:00 10/22/19 20:25 Flomax PO 0.4 mg BID TOO Administration - Exam General Appearance: NAD, awake alert Eye: PERRL, anicteric sclera ENT: normocephalic atraumatic, no oropharyngeal lesions, moist mucosa Neck: supple, symmetric, no JVD, no thyromegaly, no lymphadenopathy, no carotid bruit Heart: RRR, no murmur, no gallops, no rubs, normal peripheral pulses Respiratory: CTAB, no wheezes, no rales, no ronchi, normal chest expansion, no tachypnea, normal percussion Gastrointestinal: soft, non-tender, non-distended, normal bowel sounds, no palpable masses, no hepatomegaly, no splenomegaly, no bruit Gastrointestinal - other findings: suprapubic catheter in place Extremities: no cyanosis, no clubbing, no edema Skin: normal turgor, no lesions, no rashes Neurological: cranial nerve grossly intact, normal sensation to touch, no weakness, no focal deficits, no new deficit Musculoskeletal: normal tone, normal strength, no muscle wasting Psychiatric: normal affect, normal behavior, A&O x 3 Hosp A/P - Plan IMPRESSION Urinary retention, status post suprapubic catheter placement Urinary tract infection, sepsis, improving Chronic diastolic heart failure Hypertension Anemia Dementia Cellulitis of the skin around the suprapubic catheter Possible seizure Continue ceftriaxone and vancomycin, will discuss with Dr. Benavidez for duration We will coordinate with urology Continue other medications from home Continue suprapubic cath care Neurology has placed Lamictal on patient for possible seizures Disposition: Once overall infection improves will possible to SNF facility mid- to-late of this week.
[2019-10-22] MEDS: Acetaminophen 325 MG TAB PO PRN (21:42)
[2019-10-23] MEDS: Sodium Chloride 0.9% 1,000 ML IV SCH (05:33)
[2019-10-23 05:37] LABS: ALT (SGPT) 21 U/L (8-55); AST (SGOT) 20 U/L (5-34); Albumin 3.3 g/dL (3.4-4.8); Alkaline Phosphatase 44 U/L (40-110); Anion Gap 12 mmol/L (10-20); BUN (Urea Nitrogen) 10 mg/dL (8.4-25.7); Bilirubin, Total 0.5 mg/dL (0.2-1.2); Calc. Creatinine Clearance 87 mL/min (70-130); Calcium 8.7 mg/dL (7.8-10.44); Carbon Dioxide 20 mmol/L (23-31); Chloride 111 mmol/L (98-107); Estimated GFR-MDRD Greater than 90; Globulin 3.1 g/dL (2.4-3.5); Glucose 91 mg/dL (83-110); Potassium 3.7 mmol/L (3.5-5.1); Protein, Total 6.4 g/dL (5.8-8.1); Sodium 139 mmol/L (136-145)
[2019-10-23 05:43] LABS: Band 3 % (5-11); Eosinophils 2 % (0-10); Hemoglobin 8.6 g/dL (14.0-18.0); Hypochromia SLIGHT = 6-15 cells (100X) (0-5/hpf); Lymphocytes 39 % (21-51); MDiff Complete? YES; Macrocytosis SLIGHT = 6-15 cells (100X) (0-5/hpf); Mean Corpuscular Hemoglobin 38.3 pg (27.0-31.0); Mean Platelet Volume 8.7 fL (7.4-10.4); Metamyelocyte 1 % (0-0); Monocytes 19 % (0-10); Myelocyte 3 % (0-0); Neutrophil 33 % (42-75); Platelet Count 226 thou/uL (130-400); Platelet Morphology Comment Appears Adequate; RBC Distribution Width 12.8 % (11.5-14.5); Red Blood Cell (RBC) Count 2.25 mill/uL (4.70-6.10); White Blood Cell (WBC) Count 4.2 thou/uL (4.8-10.8)
--- NOTE | 2019-10-23 08:30 | PRG ---
DATE OF SERVICE: 10/23/2019 OBJECTIVE: The patient remains confused. Vital signs are stable. He is afebrile. Urine output 2600. Abdomen is soft. No rigidity. No rebound. Again, noted his large ventral incisional hernia with large fascial defect. Suprapubic tube site is changed, despite my orders for b.i.d. dressing changes, it has not been performed. SP tube dressing taken down, surrounding erythema remains, however improving, no gross purulent discharge can be expressed. The wound was clean, new dressing applied. Catheter secured to StatLock, which was not appropriately secured. White count stable, hemoglobin 8.6, creatinine stable. IMPRESSION AND PLAN: 1. Mr. 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 2. History of recurrent urinary tract infection. 3. 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 4. Advanced age. 5. Status post suprapubic tube urinary diversion. 6. Current admission due to fever, urinary tract infection, resolved on ciprofloxacin and vancomycin regimen. His wound is improving. I anticipate patient can most likely be transition to a rehab facility likely , please clarify with Infectious Disease regarding course of vancomycin, as I anticipate he will need few days of antibiotic at the facility, as he continues to have erythema, although improved. Continue sitter at bedside as he attempted to get out of bed , confused yesterday. Job ID: [id number] [facility]
[2019-10-23 08:33] LABS: Vancomycin, Trough 27.7 ug/mL
[2019-10-23] MEDS: Carbamide Peroxide 6.5% Otic Drops 15 ml Bottle EA EAR SCH ×2 (08:38→20:55)
[2019-10-23] MEDS: Vancomycin HCl 1 GM in Premix Bag 1 BAG IVPB SCH (08:38)
[2019-10-23] MEDS: Tamsulosin HCl 0.4 MG CAP PO SCH ×2 (08:39→20:55)
[2019-10-23] MEDS: Saccharomyces boulardii 250 MG CAP PO SCH (08:39)
[2019-10-23] MEDS: Cyanocobalamin (Vitamin B-12) 1,000 MCG TAB PO SCH (08:39)
[2019-10-23] MEDS: Folic Acid 1 MG TAB PO SCH (08:39)
[2019-10-23] MEDS: Metoprolol Tartrate 25 MG TAB PO SCH ×2 (08:39→20:54)
[2019-10-23] MEDS: lamoTRIgine 100 MG TAB PO SCH (08:39)
[2019-10-23] MEDS: Famotidine 20 MG TAB PO SCH (08:39)
--- NOTE | 2019-10-23 10:29 | EEG ---
Referring Physician: Cora EVANS EEG # [id number] TEST TYPE: ROUTINE PORTABLE INPATIENT REPORT: AN EEG USING THE INTERNATIONAL TEN-TWENTY SYSTEM OF ELECTRODE PLACEMENT WAS PERFORMED. The best waking background is an 8 hertz alpha frequency. The patient remained awake throughout the study, but appeared to be a bit drowsy at times. Photic stimulation was unremarkable. No epileptiform features were seen. IMPRESSION: THIS IS A NORMAL AWAKE AND DROWSY EEG. Quality Control Analyst: DARIO Assistant Cross Country Coach: EEG.HERMAN IRWIN
[2019-10-23] MEDS: cefTRIAXone\\ROCEPHIN 1 GM in Sodium Chloride 0.9% 100 ML IVPB SCH (14:02)
--- NOTE | 2019-10-23 14:55 | PDOC.HOSPP ---
- Subjective Encounter Date: 10/23/19 Encounter Time: 11:00 Subjective: Sleeping comfortably this AM. No overnight issues. - Objective Vital Signs & Weight: Vital Signs (12 hours) Temp Pulse Resp BP BP BP Pulse Ox 10/23/19 11:41 97 F L 61 16 138/48 L 95 10/23/19 07:47 97 10/23/19 07:00 97.5 F L 61 14 142/88 H 97 10/23/19 03:11 97.6 F 65 18 127/54 L 96 Weight Admit Weight 211 lb Weight 211 lb I&O: 10/22/19 10/23/19 10/24/19 06:59 06:59 06:59 Intake Total 1845 1690 480 Output Total 1800 2600 Balance 45 -910 480 Result Diagrams: 10/23/19 04:48 10/23/19 04:48 Hospitalist ROS - Review of Systems All other systems reviewed; all pertinent +/- noted in HPI/Subj - Medication Medications: Active Medications Generic Name Dose Route Start Last Admin Trade Name Freq PRN Reason Stop Dose Admin Acetaminophen 650 mg 10/04/19 10:57 10/22/19 21:42 Tylenol PO 650 mg Q4H PRN Administration Headache/Fever/Mild Pain (1-3) Hydrocodone Bitart/Acetaminophen 1 tab 10/17/19 16:59 10/21/19 14:16 [place] 5/325 PO 1 tab Q4H PRN Administration Moderate Pain (4-6) Hydrocodone Bitart/Acetaminophen 2 tab 10/17/19 16:59 10/21/19 00:17 [place] 5/325 PO 2 tab Q4H PRN Administration Severe Pain (7-10) Bisacodyl 10 mg 10/04/19 10:57 10/07/19 15:24 Dulcolax [place] 10 mg DAILYPRN PRN Administration Constipation Carbamide Perox/Anhydrous Glycerin 1 drop 10/16/19 21:00 10/23/19 08:38 Debrox 6.5% Otic EA EAR 1 drop BID TOO Administration Cyanocobalamin 1,000 mcg 10/05/19 09:00 10/23/19 08:39 Vitamin B-12 PO 1,000 mcg DAILY TOO Administration Famotidine 20 mg 10/05/19 09:00 10/23/19 08:39 Pepcid PO 20 mg DAILY TOO Administration Finasteride 5 mg 10/04/19 21:00 10/22/19 20:25 Proscar PO 5 mg QPM TOO Administration Folic Acid 1 mg 10/05/19 09:00 10/23/19 08:39 Folvite PO 1 mg DAILY TOO Administration Guaifenesin/Dextromethorphan 15 ml 10/04/19 10:57 10/08/19 13:10 Robitussin Dm PO 15 ml Q4H PRN Administration Cough Ceftriaxone Sodium 1 gm/ 100 mls @ 200 mls/hr 10/19/19 15:00 10/23/19 14:02 Sodium Chloride IVPB 100 mls Q24HR TOO Administration Sodium Chloride 1,000 mls @ 50 mls/hr 10/21/19 11:18 10/23/19 05:33 Normal Saline 0.9% IV Not Given .Q20H TOO Lamotrigine 100 mg 10/22/19 09:00 10/23/19 08:39 Lamictal PO 100 mg DAILY [facility] Administration Metoprolol Tartrate 25 mg 10/04/19 21:00 10/23/19 08:39 Lopressor PO 25 mg BID TOO Administration Saccharomyces Boulardii 250 mg 10/05/19 09:00 10/23/19 08:39 Florastor PO 250 mg DAILY [facility] Administration Senna/Docusate Sodium 2 tab 10/04/19 10:57 10/22/19 09:28 Senokot S PO 2 tab BIDPRN PRN Administration Constipation Simvastatin 10 mg 10/04/19 21:00 10/22/19 20:24 Zocor PO 10 mg QPM [facility] Administration Tamsulosin HCl 0.4 mg 10/04/19 21:00 10/23/19 08:39 Flomax PO 0.4 mg BID TOO Administration - Exam General Appearance: NAD, awake alert Eye: PERRL, anicteric sclera ENT: normocephalic atraumatic, no oropharyngeal lesions, moist mucosa Neck: supple, symmetric, no JVD, no thyromegaly, no lymphadenopathy, no carotid bruit Heart: RRR, no murmur, no gallops, no rubs, normal peripheral pulses Respiratory: CTAB, no wheezes, no rales, no ronchi, normal chest expansion, no tachypnea, normal percussion Gastrointestinal: soft, non-tender, non-distended, normal bowel sounds, no palpable masses, no hepatomegaly, no splenomegaly, no bruit Extremities: no cyanosis, no clubbing, no edema Skin: normal turgor, no lesions, no rashes Neurological: cranial nerve grossly intact, normal sensation to touch, no weakness, no focal deficits, no new deficit Musculoskeletal: normal tone, normal strength, no muscle wasting Psychiatric: normal affect, normal behavior, A&O x 3 Hosp A/P - Plan IMPRESSION Urinary retention, status post suprapubic catheter placement Urinary tract infection, sepsis, improving Chronic diastolic heart failure Hypertension Anemia Dementia Cellulitis of the skin around the suprapubic catheter Possible seizure PLAN Continue ceftriaxone and vancomycin, ID to decide on duration, discussed case with Dr. Benavidez We will coordinate with urology Continue other medications from home Continue suprapubic cath care Neurology has placed Lamictal on patient for possible seizures Disposition: Once overall infection improves will possible to SNF facility mid- to-late of this week.
--- NOTE | 2019-10-23 18:06 | PRG ---
DATE OF SERVICE: 10/23/2019 SUBJECTIVE: Mr. Roldan is a bit less subtended. He is quite more alert than previously. He still confused as usual. He denies any respiratory symptoms, still with tenderness in the suprapubic area exit site and has not had a fever for the past few days. OBJECTIVE: VITAL SIGNS: Blood pressure 130/54, pulse 64, respirations 14, and O2 saturation 98%. GENERAL: He appears in no distress. HEENT: Establishes eye contact, but did know who I was and obviously had some delusional thinking process and poor recall. LUNGS: Clear. HEART: S1 and S2. Regular rate. ABDOMEN: Soft. Suprapubic exit side with thin rim of erythema about 1 cm. A little bit of purulent exudate around the exit site. LABORATORY DATA: Cultures were sent from the site for bacterial and fungal pathogens. White cell count 4.2, hemoglobin 8.6, platelets 226, and creatinine 0.78. He is currently receiving ceftriaxone and vancomycin. Vanc trough 27.7. A pharmacist has adjusted the dose to a lesser frequency of administration. ASSESSMENT AND DISCUSSION: Cognitive dysfunction, benign prostatic hypertrophy, delirium, suprapubic cystostomy with concern for exit site infection. He is on Rocephin and vancomycin and in view of the persistence of inflammatory change, we will have to continue for few more days the administration of antimicrobials. We will go ahead and insert a PICC line and maybe another 10 or 14 days will suffice. In the meantime, the cultures are pending. We will adjust therapy accordingly. Job ID: [id number]
[2019-10-23 20:27] LABS: Vancomycin, Random 27.9 ug/mL (See Comment)
[2019-10-23] MEDS: Simvastatin 5 MG TAB PO SCH (20:54)
[2019-10-23] MEDS: Finasteride 5 MG TAB PO SCH (20:55)
[2019-10-23] MEDS ORDERED: Vancomycin HCl 1 GM in Premix Bag 1 BAG IVPB SCH (21:00)
[2019-10-23] MEDS: Acetaminophen 325 MG TAB PO PRN (22:19)
[2019-10-24] MEDS: Sodium Chloride 0.9% 1,000 ML IV SCH ×3 (00:49→20:52)
[2019-10-24 05:37] LABS: ALT (SGPT) 17 U/L (8-55); AST (SGOT) 17 U/L (5-34); Albumin 3.2 g/dL (3.4-4.8); Alkaline Phosphatase 44 U/L (40-110); Anion Gap 13 mmol/L (10-20); BUN (Urea Nitrogen) 8 mg/dL (8.4-25.7); Bilirubin, Total 0.5 mg/dL (0.2-1.2); Calc. Creatinine Clearance 84 mL/min (70-130); Calcium 8.6 mg/dL (7.8-10.44); Carbon Dioxide 20 mmol/L (23-31); Chloride 111 mmol/L (98-107); Estimated GFR-MDRD 90; Globulin 2.9 g/dL (2.4-3.5); Glucose 88 mg/dL (83-110); Potassium 3.8 mmol/L (3.5-5.1); Protein, Total 6.1 g/dL (5.8-8.1); Sodium 140 mmol/L (136-145)
[2019-10-24 05:40] LABS: Band 1 % (5-11); Hemoglobin 8.6 g/dL (14.0-18.0); Lymphocytes 43 % (21-51); MDiff Complete? YES; Mean Corpuscular HGB CONC 33.3 g/dL (32.0-36.0); Mean Corpuscular Hemoglobin 38.6 pg (27.0-31.0); Mean Platelet Volume 8.3 fL (7.4-10.4); Metamyelocyte 9 % (0-0); Monocytes 28 % (0-10); Myelocyte 2 % (0-0); Neutrophil 17 % (42-75); Platelet Count 213 thou/uL (130-400); Platelet Morphology Comment Appears Adequate; RBC Distribution Width 12.8 % (11.5-14.5); Red Blood Cell (RBC) Count 2.23 mill/uL (4.70-6.10); White Blood Cell (WBC) Count 4.2 thou/uL (4.8-10.8)
[2019-10-24] MEDS: Tamsulosin HCl 0.4 MG CAP PO SCH ×2 (08:18→20:50)
[2019-10-24] MEDS: Metoprolol Tartrate 25 MG TAB PO SCH ×2 (08:18→20:50)
[2019-10-24] MEDS: Saccharomyces boulardii 250 MG CAP PO SCH (08:18)
[2019-10-24] MEDS: Famotidine 20 MG TAB PO SCH (08:18)
[2019-10-24] MEDS: lamoTRIgine 100 MG TAB PO SCH (08:19)
[2019-10-24] MEDS: Folic Acid 1 MG TAB PO SCH (08:19)
[2019-10-24] MEDS: Carbamide Peroxide 6.5% Otic Drops 15 ml Bottle EA EAR SCH ×2 (08:19→20:51)
[2019-10-24] MEDS: Cyanocobalamin (Vitamin B-12) 1,000 MCG TAB PO SCH (08:21)
--- NOTE | 2019-10-24 09:23 | PRG ---
DATE OF SERVICE: 10/24/2019 SUBJECTIVE: The patient is confused. Sitter at bedside. OBJECTIVE: VITAL SIGNS: Stable. He is afebrile. ABDOMEN: Demonstrates erythema around the suprapubic tube site about 1 cm circumferential. There continues to be some mucopurulent discharge, mild. No rigidity. No rebound. : Rangel catheter draining uneventfully. LABORATORY DATA: White count normal at 4, hemoglobin 8.6, platelet 213. Creatinine 0.8. IMPRESSION AND PLAN: 1. Mr. Roldan is an 89-year-old male with history of massively enlarged prostate with chronic retention. 2. History of recurrent urinary tract infection. 3. Dementia, status post suprapubic tube. The patient currently on vancomycin and ciprofloxacin. PICC line today. As he continues to have erythema of the suprapubic tube site, however, this is stable. The patient will require to be sitter free for minimum 24 hours prior to discharge. I am okay with the patient being sitter free for 24 hours to eval, however, close monitoring with nursing station and video monitoring would be advised to prevent Rangel suprapubic tube removal or PICC line removal. Job ID: [id number] [facility]
--- NOTE | 2019-10-24 10:58 | SPC ---
SPC CVP LINE PICC INITAL >5 History: Need for long-term IV access Comparison: None. Findings: Patient was brought to the fluoroscopy suite. All questions are answered. Informed consent was obtained. Timeout performed. The patient's right arm was prepped and draped in normal sterile fashion. Using ultrasound guidance t he right basilic vein was accessed. Over a wire and through a peel-away sheath using fluoroscopic guidance the PICC was placed with tip at the inferior SVC. The patient tolerated the procedure well w ithout complication. Impression: Technically successful ultrasound and fluoroscopic guided PICC placement. Fluoroscopy time: 0.3 minutes
--- NOTE | 2019-10-24 14:17 | PDOC.HOSPP ---
- Subjective Encounter Date: 10/24/19 Encounter Time: 14:15 Subjective: No overnight events. He has had PICC line placed this AM. Continues with some mild confusion, otherwise much improved. - Objective Vital Signs & Weight: Vital Signs (12 hours) Temp Pulse Resp BP BP Pulse Ox 10/24/19 11:06 98.1 F 60 18 149/57 H 96 10/24/19 08:05 93 L 10/24/19 07:06 97.7 F 60 18 138/58 L 93 L Weight Admit Weight 211 lb Weight 211 lb I&O: 10/23/19 10/24/19 10/25/19 06:59 06:59 06:59 Intake Total 1690 2320 Output Total 2600 1950 Balance -910 370 Result Diagrams: 10/24/19 04:37 10/24/19 04:37 Hospitalist ROS - Review of Systems All other systems reviewed; all pertinent +/- noted in HPI/Subj - Medication Medications: Active Medications Generic Name Dose Route Start Last Admin Trade Name Freq PRN Reason Stop Dose Admin Acetaminophen 650 mg 10/04/19 10:57 10/23/19 22:19 Tylenol PO 650 mg Q4H PRN Administration Headache/Fever/Mild Pain (1-3) Hydrocodone Bitart/Acetaminophen 1 tab 10/17/19 16:59 10/21/19 14:16 [place] 5/325 PO 1 tab Q4H PRN Administration Moderate Pain (4-6) Hydrocodone Bitart/Acetaminophen 2 tab 10/17/19 16:59 10/21/19 00:17 [place] 5/325 PO 2 tab Q4H PRN Administration Severe Pain (7-10) Bisacodyl 10 mg 10/04/19 10:57 10/07/19 15:24 Dulcolax HI 10 mg DAILYPRN PRN Administration Constipation Carbamide Perox/Anhydrous Glycerin 1 drop 10/16/19 21:00 10/24/19 08:19 Debrox 6.5% Otic EA EAR 1 drop BID TOO Administration Cyanocobalamin 1,000 mcg 10/05/19 09:00 10/24/19 08:21 Vitamin B-12 PO 1,000 mcg DAILY TOO Administration Famotidine 20 mg 10/05/19 09:00 10/24/19 08:18 Pepcid PO 20 mg DAILY TOO Administration Finasteride 5 mg 10/04/19 21:00 10/23/19 20:55 Proscar PO 5 mg QPM TOO Administration Folic Acid 1 mg 10/05/19 09:00 10/24/19 08:19 Folvite PO 1 mg DAILY TOO Administration Guaifenesin/Dextromethorphan 15 ml 10/04/19 10:57 10/08/19 13:10 Robitussin Dm PO 15 ml Q4H PRN Administration Cough Ceftriaxone Sodium 1 gm/ 100 mls @ 200 mls/hr 10/19/19 15:00 10/23/19 14:02 Sodium Chloride IVPB 100 mls Q24HR TOO Administration Sodium Chloride 1,000 mls @ 50 mls/hr 10/21/19 11:18 10/24/19 03:44 Normal Saline 0.9% IV 1,000 mls .Q20H TOO Administration Lamotrigine 100 mg 10/22/19 09:00 10/24/19 08:19 Lamictal PO 100 mg DAILY TOO Administration Metoprolol Tartrate 25 mg 10/04/19 21:00 10/24/19 08:18 Lopressor PO 25 mg BID TOO Administration Saccharomyces Boulardii 250 mg 10/05/19 09:00 10/24/19 08:18 Florastor PO 250 mg DAILY TOO Administration Senna/Docusate Sodium 2 tab 10/04/19 10:57 10/22/19 09:28 Senokot S PO 2 tab BIDPRN PRN Administration Constipation Simvastatin 10 mg 10/04/19 21:00 10/23/19 20:54 Zocor PO 10 mg QPM TOO Administration Tamsulosin HCl 0.4 mg 10/04/19 21:00 10/24/19 08:18 Flomax PO 0.4 mg BID TOO Administration - Exam General Appearance: NAD, awake alert Eye: PERRL, anicteric sclera ENT: normocephalic atraumatic, no oropharyngeal lesions, moist mucosa Neck: supple, symmetric, no JVD, no thyromegaly, no lymphadenopathy, no carotid bruit Heart: RRR, no murmur, no gallops, no rubs, normal peripheral pulses Respiratory: CTAB, no wheezes, no rales, no ronchi, normal chest expansion, no tachypnea, normal percussion Gastrointestinal: soft, non-tender, non-distended, normal bowel sounds, no palpable masses, no hepatomegaly, no splenomegaly, no bruit Gastrointestinal - other findings: suprapubic catheter, cellulits around catheter much improved Extremities: no cyanosis, no clubbing, no edema Skin: normal turgor, no lesions, no rashes Neurological: cranial nerve grossly intact, normal sensation to touch, no weakness, no focal deficits, no new deficit Musculoskeletal: normal tone, normal strength, no muscle wasting Psychiatric: normal affect, normal behavior, A&O x 3 Hosp A/P - Plan IMPRESSION Urinary retention, status post suprapubic catheter placement Urinary tract infection, sepsis, improving Chronic diastolic heart failure Hypertension Anemia Dementia Cellulitis of the skin around the suprapubic catheter Possible seizure PLAN Continue ceftriaxone and vancomycin, ID reccomends 10 to 14 more days We will coordinate with urology Continue other medications from home Continue suprapubic cath care Neurology has placed Lamictal on patient for possible seizures Disposition: Once overall infection improves will possible to SNF facility mid- to-late of this week. Likely DC tomorrow to SNF with IV abx.
[2019-10-24] MEDS: cefTRIAXone\\ROCEPHIN 1 GM in Sodium Chloride 0.9% 100 ML IVPB SCH (14:37)
[2019-10-24] MEDS ORDERED: cefTRIAXone\\ROCEPHIN 1 GM VIAL ONE (14:46)
[2019-10-24] MEDS: Vancomycin 1.5 GRAM/300 ML BAG 1.5 GM in Premix Bag 1 BAG IVPB SCH (15:39)
[2019-10-24] MEDS: Finasteride 5 MG TAB PO SCH (20:50)
[2019-10-24] MEDS: Simvastatin 5 MG TAB PO SCH (20:50)
[2019-10-25] MEDS: Sodium Chloride 0.9% 1,000 ML IV SCH (03:42)
[2019-10-25 06:42] LABS: Hemoglobin 8.5 g/dL (14.0-18.0); Mean Corpuscular HGB CONC 34.7 g/dL (32.0-36.0); Mean Corpuscular Hemoglobin 40.4 pg (27.0-31.0); Mean Platelet Volume 8.1 fL (7.4-10.4); Platelet Count 210 thou/uL (130-400); RBC Distribution Width 12.8 % (11.5-14.5); Red Blood Cell (RBC) Count 2.12 mill/uL (4.70-6.10); White Blood Cell (WBC) Count 3.9 thou/uL (4.8-10.8)
[2019-10-25 07:02] LABS: ALT (SGPT) 15 U/L (8-55); AST (SGOT) 17 U/L (5-34); Albumin 3.4 g/dL (3.4-4.8); Alkaline Phosphatase 45 U/L (40-110); Anion Gap 12 mmol/L (10-20); BUN (Urea Nitrogen) 10 mg/dL (8.4-25.7); Bilirubin, Total 0.5 mg/dL (0.2-1.2); Calc. Creatinine Clearance 83 mL/min (70-130); Calcium 8.6 mg/dL (7.8-10.44); Carbon Dioxide 21 mmol/L (23-31); Chloride 110 mmol/L (98-107); Estimated GFR-MDRD 88; Globulin 3.1 g/dL (2.4-3.5); Glucose 96 mg/dL (83-110); Potassium 3.9 mmol/L (3.5-5.1); Protein, Total 6.5 g/dL (5.8-8.1); Sodium 139 mmol/L (136-145)
[2019-10-25] MEDS: Carbamide Peroxide 6.5% Otic Drops 15 ml Bottle EA EAR SCH ×2 (08:42→21:10)
[2019-10-25] MEDS: Metoprolol Tartrate 25 MG TAB PO SCH ×2 (08:43→20:00)
[2019-10-25] MEDS: Cyanocobalamin (Vitamin B-12) 1,000 MCG TAB PO SCH (08:43)
[2019-10-25] MEDS: Folic Acid 1 MG TAB PO SCH (08:43)
[2019-10-25] MEDS: Saccharomyces boulardii 250 MG CAP PO SCH (08:43)
[2019-10-25] MEDS: Famotidine 20 MG TAB PO SCH (08:43)
[2019-10-25] MEDS: Tamsulosin HCl 0.4 MG CAP PO SCH ×2 (08:43→21:10)
[2019-10-25] MEDS: lamoTRIgine 100 MG TAB PO SCH (08:43)
--- NOTE | 2019-10-25 08:58 | PRG ---
DATE OF SERVICE: 10/25/2019 SUBJECTIVE: alert/wanting his hamburger OBJECTIVE: VITAL SIGNS: Stable. ABDOMEN: SP tube dressing is in place, improvement of erythema and discharge. No fluctuance. Draining clear. Culture from the SP tube site is negative thus far IMPRESSION AND PLAN: 1. Mr. Roldan is an 89-year-old male with massively enlarged prostate, status post suprapubic tube. 2. History of recurrent urinary tract infection. 3. Current admission due to sepsis on ciprofloxacin and vancomycin per Dr. Benavidez. PICC line has been placed. From my perspective, the patient can be discharged to [facility]. He has an appointment with me on November 14 for interval suprapubic tube exchange. SP tube care at nursing facility, wound care advised. Job ID: [id number] [facility]TDD
[2019-10-25 09:27] LABS: Band 7 % (5-11); Eosinophils 2 % (0-10); Lymphocytes 42 % (21-51); MDiff Complete? YES; Macrocytosis MODERATE=16-30 cells (100X) (0-5/hpf); Metamyelocyte 1 % (0-0); Monocytes 14 % (0-10); Myelocyte 9 % (0-0); Neutrophil 23 % (42-75); Platelet Morphology Comment Appears Adequate; Polychromasia SLIGHT = 2-3 cells (100X) (0-2/hpf); Reactive Lymphocytes 2 % (0-10)
[2019-10-25] MEDS: cefTRIAXone\\ROCEPHIN 1 GM in Sodium Chloride 0.9% 100 ML IVPB SCH (15:01)
[2019-10-25] MEDS: Vancomycin 1.5 GRAM/300 ML BAG 1.5 GM in Premix Bag 1 BAG IVPB SCH (15:53)
--- NOTE | 2019-10-25 16:53 | PDOC.HOSPP ---
- Subjective Encounter Date: 10/25/19 Encounter Time: 16:44 Subjective: Sitting up in bed comfortably. No complaints at this time. - Objective Vital Signs & Weight: Vital Signs (12 hours) Temp Pulse Pulse Resp BP BP Pulse Ox 10/25/19 15:20 97.4 F L 60 18 118/54 L 97 10/25/19 11:03 97.3 F L 60 18 119/57 L 98 10/25/19 09:13 58 L 145/59 H 10/25/19 08:25 95 10/25/19 07:10 98.2 F 60 18 167/56 H 95 Weight Admit Weight 211 lb Weight 211 lb I&O: 10/24/19 10/25/19 10/26/19 06:59 06:59 06:59 Intake Total 2320 850 Output Total 1950 850 Balance 370 0 Result Diagrams: 10/25/19 06:19 10/25/19 06:19 Hospitalist ROS - Review of Systems All other systems reviewed; all pertinent +/- noted in HPI/Subj - Medication Medications: Active Medications Generic Name Dose Route Start Last Admin Trade Name Freq PRN Reason Stop Dose Admin Acetaminophen 650 mg 10/04/19 10:57 10/23/19 22:19 Tylenol PO 650 mg Q4H PRN Administration Headache/Fever/Mild Pain (1-3) Hydrocodone Bitart/Acetaminophen 1 tab 10/17/19 16:59 10/21/19 14:16 [place] 5/325 PO 1 tab Q4H PRN Administration Moderate Pain (4-6) Hydrocodone Bitart/Acetaminophen 2 tab 10/17/19 16:59 10/21/19 00:17 [place] 5/325 PO 2 tab Q4H PRN Administration Severe Pain (7-10) Bisacodyl 10 mg 10/04/19 10:57 10/07/19 15:24 Dulcolax [place] 10 mg DAILYPRN PRN Administration Constipation Carbamide Perox/Anhydrous Glycerin 1 drop 10/16/19 21:00 10/25/19 08:42 Debrox 6.5% Otic EA EAR 1 drop BID TOO Administration Cyanocobalamin 1,000 mcg 10/05/19 09:00 10/25/19 08:43 Vitamin B-12 PO 1,000 mcg DAILY TOO Administration Famotidine 20 mg 10/05/19 09:00 10/25/19 08:43 Pepcid PO 20 mg DAILY TOO Administration Finasteride 5 mg 10/04/19 21:00 10/24/19 20:50 Proscar PO 5 mg QPM TOO Administration Folic Acid 1 mg 10/05/19 09:00 10/25/19 08:43 Folvite PO 1 mg DAILY TOO Administration Guaifenesin/Dextromethorphan 15 ml 10/04/19 10:57 10/08/19 13:10 Robitussin Dm PO 15 ml Q4H PRN Administration Cough Ceftriaxone Sodium 1 gm/ 100 mls @ 200 mls/hr 10/19/19 15:00 10/25/19 15:01 Sodium Chloride IVPB 100 mls Q24HR TOO Administration Sodium Chloride 1,000 mls @ 50 mls/hr 10/21/19 11:18 10/25/19 03:42 Normal Saline 0.9% IV 1,000 mls .Q20H TOO Administration Vancomycin HCl 1.5 gm/ Device 300 mls @ 200 mls/hr 10/24/19 15:00 10/25/19 15 :53 IVPB 300 mls 1500 TOO Administration Lamotrigine 100 mg 10/22/19 09:00 10/25/19 08:43 Lamictal PO 100 mg DAILY TOO Administration Metoprolol Tartrate 25 mg 10/04/19 21:00 10/25/19 08:43 Lopressor PO 25 mg BID TOO Administration Saccharomyces Boulardii 250 mg 10/05/19 09:00 10/25/19 08:43 Florastor PO 250 mg DAILY TOO Administration Senna/Docusate Sodium 2 tab 10/04/19 10:57 10/22/19 09:28 Senokot S PO 2 tab BIDPRN PRN Administration Constipation Simvastatin 10 mg 10/04/19 21:00 10/24/19 20:50 Zocor PO 10 mg QPM TOO Administration Tamsulosin HCl 0.4 mg 10/04/19 21:00 10/25/19 08:43 Flomax PO 0.4 mg BID TOO Administration - Exam General Appearance: NAD, awake alert, ill appearing Eye: PERRL, anicteric sclera ENT: normocephalic atraumatic, no oropharyngeal lesions, moist mucosa Neck: supple, symmetric, no JVD, no thyromegaly, no lymphadenopathy, no carotid bruit Heart: RRR, no murmur, no gallops, no rubs, normal peripheral pulses Respiratory: CTAB, no wheezes, no rales, no ronchi, normal chest expansion, no tachypnea, normal percussion Gastrointestinal: soft, non-tender, non-distended, normal bowel sounds, no palpable masses, no hepatomegaly, no splenomegaly, no bruit Gastrointestinal - other findings: suprapubic catheter, mild celluilits around site, improving Extremities: no cyanosis, no clubbing, no edema Skin: normal turgor, no lesions, no rashes Neurological: cranial nerve grossly intact, normal sensation to touch, no weakness, no focal deficits, no new deficit Musculoskeletal: normal tone, normal strength, no muscle wasting Psychiatric: normal affect, normal behavior, A&O x 3 Hosp A/P - Plan IMPRESSION Urinary retention, status post suprapubic catheter placement Urinary tract infection, sepsis, improving Chronic diastolic heart failure Hypertension Anemia Dementia Cellulitis of the skin around the suprapubic catheter, improving Possible seizure PLAN Continue ceftriaxone and vancomycin, ID reccomends until October 28 We will coordinate with nephrology Continue other medications from home Continue suprapubic cath care Neurology has placed Lamictal on patient for possible seizures Disposition: Setting for possible discharge to SNF Thursday 10/26, unfortunately was on one to one and needed 48 hours before discharge as per SNF facility. Continue IV abx as per ID until October 28. Continue diflucan for 7 days started on 10/25. Follow up with nephro November 14 for suprapubic catheter removal.
[2019-10-25] MEDS: Finasteride 5 MG TAB PO SCH (21:10)
[2019-10-25] MEDS: Simvastatin 5 MG TAB PO SCH (21:10)
[2019-10-26 04:40] LABS: ALT (SGPT) 14 U/L (8-55); AST (SGOT) 15 U/L (5-34); Albumin 3.1 g/dL (3.4-4.8); Alkaline Phosphatase 41 U/L (40-110); Anion Gap 11 mmol/L (10-20); BUN (Urea Nitrogen) 9 mg/dL (8.4-25.7); Bilirubin, Total 0.5 mg/dL (0.2-1.2); Calc. Creatinine Clearance 88 mL/min (70-130); Calcium 8.5 mg/dL (7.8-10.44); Carbon Dioxide 22 mmol/L (23-31); Chloride 111 mmol/L (98-107); Estimated GFR-MDRD Greater than 90; Globulin 2.9 g/dL (2.4-3.5); Glucose 91 mg/dL (83-110); Potassium 3.7 mmol/L (3.5-5.1); Sodium 140 mmol/L (136-145)
[2019-10-26 05:37] LABS: Band 4 % (5-11); Hemoglobin 8.1 g/dL (14.0-18.0); Lymphocytes 50 % (21-51); MDiff Complete? YES; Macrocytosis SLIGHT = 6-15 cells (100X) (0-5/hpf); Mean Corpuscular HGB CONC 33.5 g/dL (32.0-36.0); Mean Corpuscular Hemoglobin 38.7 pg (27.0-31.0); Mean Platelet Volume 8.2 fL (7.4-10.4); Metamyelocyte 1 % (0-0); Monocytes 20 % (0-10); Myelocyte 4 % (0-0); Neutrophil 21 % (42-75); Platelet Count 183 thou/uL (130-400); RBC Distribution Width 12.9 % (11.5-14.5); Red Blood Cell (RBC) Count 2.09 mill/uL (4.70-6.10); White Blood Cell (WBC) Count 4.2 thou/uL (4.8-10.8)
--- NOTE | 2019-10-26 08:11 | PRG ---
DATE OF SERVICE: 10/26/2019 SUBJECTIVE: The patient is sleeping, easily arousable. OBJECTIVE: VITAL SIGNS: Stable. Afebrile. I's and O's; 3225 out, clear yellow urine. ABDOMEN: Soft, morbidly obese. SP tube site with minimal surrounding erythema. Mild mucopurulent discharge. PERTINENT LABORATORY DATA: White count stable at 4, hemoglobin 8.1. Creatinine 0.7. Culture from the suprapubic tube site is yeast. Blood culture and urine culture negative. IMPRESSION AND PLAN: 1. Mr. 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 2. History of recurrent urinary tract infection with chronic incomplete emptying. 3. 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 4. Status post suprapubic tube, 24-Ukrainian 30 mL, cystoscopy. The patient is to be transferred to [facility] today, with suprapubic tube. He will see me on November 14 for suprapubic tube exchange. Wound care, to continue suprapubic tube dressing. If the patient remains in-house over the weekend due to transfer issues, [facility] covering me over the weekend. Job ID: [id number] [facility]
[2019-10-26] MEDS: Famotidine 20 MG TAB PO SCH (08:55)
[2019-10-26] MEDS: Metoprolol Tartrate 25 MG TAB PO SCH (08:56)
[2019-10-26] MEDS: Tamsulosin HCl 0.4 MG CAP PO SCH (08:56)
[2019-10-26] MEDS: Saccharomyces boulardii 250 MG CAP PO SCH (08:56)
[2019-10-26] MEDS: Folic Acid 1 MG TAB PO SCH (08:57)
[2019-10-26] MEDS: Cyanocobalamin (Vitamin B-12) 1,000 MCG TAB PO SCH (08:57)
[2019-10-26] MEDS: Carbamide Peroxide 6.5% Otic Drops 15 ml Bottle EA EAR SCH (08:57)
[2019-10-26] MEDS: lamoTRIgine 100 MG TAB PO SCH (08:57)
[2019-10-26] MEDS ORDERED: Fluconazole 100 MG TAB PO SCH (09:00)
[2019-10-26 11:30] VITALS: BP 131/62; TEMP 97.3
--- NOTE | 2019-10-26 12:06 | DIS ---
DATE OF ADMISSION: 10/04/2019 DATE OF DISCHARGE: 10/26/2019 PRIMARY CARE PROVIDER: Hipolito Tavera MD DISCHARGE DIAGNOSES: 1. Sepsis. 2. Urinary tract infection. 3. Urinary retention. 4. Acute metabolic encephalopathy secondary to ciprofloxacin use. 5. Abdominal wound infection with yeast species. 6. Physical deconditioning. CONSULTATIONS DURING THIS HOSPITALIZATION: 1. Infectious Disease, Dr. Benavidez. 2. Urology, Dr. Ramirez. 3. Neurology Dr. Perrin. POSTACUTE CARE FOLLOWUP: With primary care provider in 3 days, with Dr. Ramirez on November 15, 2019, at 11:30 a.m., and with Neurology Service in 2 weeks. DISCHARGE MEDICATIONS: 1. Vitamin D of 50,000 units every week. 2. Proscar 5 mg every evening. 3. Zocor 10 mg every evening. 4. Spironolactone 25 mg in the evening. 5. Tamsulosin 0.4 mg daily. 6. Ceftriaxone 1 g intravenously every 24 hours until October 29, 2019. 7. Diflucan 100 mg daily for 7 days. 8. Furosemide 40 mg 2 times a day. 9. Lamictal 100 mg daily. 10. Lopressor 25 mg 2 times a day. 11. Florastor 250 mg daily until October 29, 2019. 12. Vancomycin 1.5 g intravenously daily until October 29, 2019. DIET: Heart healthy and low sodium. ACTIVITY: As tolerated. HOSPITAL COURSE: Mr. Roldan is a pleasant 89-year-old gentleman, who was admitted to [facility] on October 04, 2019, for sepsis and urinary tract infection. He was treated with cefepime and vancomycin. He was seen by Urology and Infectious Disease Services. On October 08, he had a 2D echocardiogram, which showed moderate concentric left ventricular hypertrophy and left ventricular ejection fraction visually estimated at 55% to 60%. Final urine culture did not show any growth. Final blood cultures did not show any growth. On October 15, he had CT-guided placement of suprapubic tube. On October 17, he had cystoscopy, suprapubic tube placement, and suprapubic tube tract dilatation. He had a followup CT scan on October 19 of abdomen and pelvis, which showed interval placement of suprapubic catheter, evidence of Rangel catheter, decompressed urinary bladder and bladder wall mucosal thickening. He had markedly enlarged prostate gland. Ventral abdominal wall hernia was similar to previous examination without any evidence of associated bowel incarceration, strangulation, or resultant bowel obstruction. There was concern regarding inflammatory changes at the suprapubic tube exit site. He was started on Diflucan because the abdominal wound culture grew yeast species. Towards the end of this hospitalization, he developed acute metabolic encephalopathy. It was determined that this was most likely secondary to ciprofloxacin use. He was switched to Rocephin. He was seen by Neurology Service. He was initially on Keppra, which was switched to Lamictal. This was mainly for agitation. He continued to improve clinically. He was physically deconditioned. He is being discharged to [facility] in [place] for further management. During this hospitalization, he had vitamin B12 level elevated at 1269 and folate level elevated at 35.40. Many thanks for allowing me to participate in your patient's care. Please feel free to contact me with any questions or concerns. DISCHARGE DESTINATION: [facility] in [place]. TIME SPENT: Total amount of time spent coordinating this discharge: 35 minutes. Job ID: [id number]
== END 2019-10-26 12:07 | DRG 871 ==
LOC: ERS 08:25 → ERHOLD 10:20 → 2NO 14:53 → T4-A 10-05 13:24 → SURG A 10-17 17:49
PROVIDERS: ADMIT Internal Medicine; ATTEND Internal Medicine
PROC: 0T9B40Z Drainage of Bladder with Drainage Device, Percutaneous Endoscopic Approach (ICD-10-PCS; 2019-10-15)
PROC: 0T9B80Z Drainage of Bladder with Drainage Device, Via Natural or Artificial Opening Endoscopic (ICD-10-PCS; 2019-10-17)
PROC: B54MZZA Ultrasonography of Right Upper Extremity Veins, Guidance (ICD-10-PCS; principal; 2019-10-24)
PROC: 02HV33Z Insertion of Infusion Device into Superior Vena Cava, Percutaneous Approach (ICD-10-PCS; 2019-10-24)
PROC: B518ZZA Fluoroscopy of Superior Vena Cava, Guidance (ICD-10-PCS; 2019-10-24)
DX: A41.9 Sepsis, unspecified organism (principal); G92 Toxic encephalopathy; N30.01 Acute cystitis with hematuria; N17.9 Acute kidney failure, unspecified; M62.82 Rhabdomyolysis; N13.8 Other obstructive and reflux uropathy; I50.32 Chronic diastolic (congestive) heart failure; I13.0 Hypertensive heart and chronic kidney disease with heart failure and stage 1 through stage 4 chronic kidney disease, or unspecified chronic kidney disease; E87.1 Hypo-osmolality and hyponatremia; L03.818 Cellulitis of other sites; T36.8X5A Adverse effect of other systemic antibiotics, initial encounter; N18.3 Chronic kidney disease, stage 3 (moderate); E78.5 Hyperlipidemia, unspecified; M19.90 Unspecified osteoarthritis, unspecified site; Z96.652 Presence of left artificial knee joint; J44.9 Chronic obstructive pulmonary disease, unspecified; R65.20 Severe sepsis without septic shock; R54 Age-related physical debility; G30.9 Alzheimer's disease, unspecified; F02.80 Dementia in other diseases classified elsewhere, unspecified severity, without behavioral disturbance, psychotic disturbance, mood disturbance, and anxiety; N40.1 Benign prostatic hyperplasia with lower urinary tract symptoms; R33.8 Other retention of urine; K43.9 Ventral hernia without obstruction or gangrene; B96.89 Other specified bacterial agents as the cause of diseases classified elsewhere; I95.9 Hypotension, unspecified; B37.9 Candidiasis, unspecified; Z95.1 Presence of aortocoronary bypass graft; Z79.899 Other long term (current) drug therapy; D53.9 Nutritional anemia, unspecified; Z95.0 Presence of cardiac pacemaker; Z87.442 Personal history of urinary calculi; R73.03 Prediabetes
CPT/HCPCS: 36415; 36416; 36569; 51102; 51701; 70450; 71045; 74176; 77002; 80053; 80202; 81003; 81015; 82550; 82553; 82607; 82746; 83605; 83690; 83880; 84146; 84484; 85025; 85060; 85610; 85730; 87040; 87070; 87086; 87205; 87804; 93005; 93306; 95816; 95819; 96361; 96365; 96367; C1729; C1751; J0692; J0696; J1644; J1940; J2704; J3370; J3490